=== PATIENT | male | born 1965 | race Caucasian/White ===

== ENCOUNTER 2019-12-12 11:25 | Inpatient (IN) | payer MEDICARE, OTHER ==
[~2019-12-12] VITALS: Ht 162.6 cm; Wt 78.9 kg
[2019-12-12] VITALS (7 sets, daily range): BP systolic 112–143; BP diastolic 62–78
[~2019-12-12 11:25] MED LIST: ABILIFY10 MG ORAL; ACETAMINOPHEN325 M1 ORAL; ANCEF0.5 GM IVINF; DEPAKOTE500 MG ORAL; DIVALPROEX SOD500 MG PO; FLOMAX0.4 MG ORAL; LEVEMIR FL100 UNIT/1 SUBQ; MIRALAX17 G2 ORAL; NOVOLOG100 UNITS1 SUBQ; PROTONIX40 MG ORAL; URECHOLINE25 MG ORAL
--- NOTE | 2019-12-12 11:26 | NUR ---
ED Nurse Note: PT brought in by ambulance from home for C/O ibnfected open wound to right side of face / temporal area. PT reports the wound has been there for over 10 days. unknown reason. pt's right ear appears to be reddened and swollen.
--- NOTE | 2019-12-12 11:28 | Emergency Room Report ---
History of Present Illness General Chief Complaint: General Complaint Source: Patient Present Illness HPI 54-year-old male presents with right posterior ear pain, drainage x2 weeks no aggravating alleviating factors severity is severe, constant patient endorses fever/chills no chest pain or shortness of breath patient presents for evaluation Allergies: Coded Allergies: No Known Allergies (Unverified , 08/03/15) COVID-19 Screening Contact w/high risk pt: No Recent Travel to affected area: No Experienced COVID-19 symptoms?: No COVID-19 Testing performed STEAM FLATTENER: No Patient History Past Medical History: see triage record Reviewed Nursing Documentation: PMH: Agreed; PSxH: Agreed Nursing Documentation-PMH Hx Cardiac Problems: No Hx Hypertension: Yes Hx Diabetes: Yes Hx Cancer: No Hx Gastrointestinal Problems: No History Of Psychiatric Problem: Yes Hx Neurological Problems: Yes Hx Fatigue: Yes Review of Systems All Other Systems: negative except mentioned in HPI Physical Exam Vital Signs Date Time Temp Pulse Resp B/P (MAP) Pulse Ox O2 Delivery O2 Flow Rate FiO2 12/12/19 11:19 99.0 117 19 117/71 (86) 100 Room Air Sp02 EP Interpretation: reviewed, normal General Appearance: alert, moderate distress Head: normocephalic, atraumatic Eyes: bilateral eye PERRL, bilateral eye EOMI ENT: uvula midline, moist mucus membranes, other - Right ear: Swollen externally, red, erythematous, with drainage, right posterior ear skin shows pus and drainage with erythema Neck: supple, thyroid normal, supple/symm/no masses Respiratory: lungs clear, no respiratory distress, no retraction, no accessory muscle use Cardiovascular #1: normal peripheral pulses, no edema, no gallop, no murmur, tachycardia Gastrointestinal: non tender, soft, no guarding, no rebound Musculoskeletal: normal inspection Neurologic: alert, oriented x3 Psychiatric: mood/affect normal Skin: no rash, warm/dry Procedures Critical Care Time Critical Care Time Given the critical condition in which the patient arrived, the patient was immediately assessed by myself and the nurse, and cardiac monitoring initiated due to the potential for rapid decompensation of the patient's clinical condition. During the course of the patient's stay, I spent a considerable amount of time at the bedside performing serial re-evaluations of the patient's hemodynamic and clinical status because of the recognized potential threat to life or limb in this condition. I then had a chance to review not only all of the available current laboratory and radiographic studies obtained today, but I also reviewed old records available to me at the time. Additionally, any ancillary information available including kitchen helper records were reviewed. Sequential vital signs were obtained. Critical Care time of 38 minutes was performed exclusive of billable procedures. Medical Decision Making Diagnostic Impression: Primary Impression: Malignant otitis externa of right ear Qualified Codes: H60.21 - Malignant otitis externa, right ear Additional Impressions: RENU (acute kidney injury) Sepsis Qualified Codes: A41.9 - Sepsis, unspecified organism Cellulitis Qualified Codes: L03.221 - Cellulitis of neck ER Course 54-year-old male presents with malignant otitis externa of the right ear, patient will require IV antibiotic Zosyn Vanco, plan to CT scan Plan for admission patient is in critical condition will need ENT Spoke with [facility] currently at capacity Called [facility] spoke with Dr. Harris Plan for transfer to [facility] Laboratory Tests Test 12/12/19 11:40 White Blood Count 55.2 K/UL (4.8-10.8) *H Red Blood Count 3.71 M/UL (4.70-6.10) L Hemoglobin 11.3 G/DL (14.2-18.0) L Hematocrit 33.8 % (42.0-52.0) L Mean Corpuscular Volume 91 FL (80-99) Mean Corpuscular Hemoglobin 30.4 PG (27.0-31.0) Mean Corpuscular Hemoglobin Concent 33.3 G/DL (32.0-36.0) Red Cell Distribution Width 13.2 % (11.6-14.8) Platelet Count 590 K/UL (150-450) H Mean Platelet Volume 8.4 FL (6.5-10.1) Neutrophils (%) (Auto) % (45.0-75.0) Lymphocytes (%) (Auto) % (20.0-45.0) Monocytes (%) (Auto) % (1.0-10.0) Eosinophils (%) (Auto) % (0.0-3.0) Basophils (%) (Auto) % (0.0-2.0) Differential Total Cells Counted 100 Neutrophils % (Manual) 88 % (45-75) H Lymphocytes % (Manual) 4 % (20-45) L Monocytes % (Manual) 8 % (1-10) Eosinophils % (Manual) 0 % (0-3) Basophils % (Manual) 0 % (0-2) Band Neutrophils 0 % (0-8) Platelet Estimate Adequate Platelet Morphology Normal Hypochromasia 1+ Anisocytosis 1+ Sodium Level 129 MMOL/L (136-145) L Potassium Level 4.6 MMOL/L (3.5-5.1) Chloride Level 93 MMOL/L (98-107) L Carbon Dioxide Level 22 MMOL/L (21-32) Anion Gap 15 mmol/L (5-15) Blood Urea Nitrogen 100 mg/dL (7-18) H Creatinine 2.9 MG/DL (0.55-1.30) H Estimated Glomerular Filtration Rate 23.0 mL/min (>60) Glucose Level 698 MG/DL (74-106) *H Lactic Acid Level 1.90 mmol/L (0.4-2.0) Calcium Level 8.7 MG/DL (8.5-10.1) Phosphorus Level 5.0 MG/DL (2.5-4.9) H Magnesium Level 2.9 MG/DL (1.8-2.4) H Total Bilirubin 0.9 MG/DL (0.2-1.0) Aspartate Amino Transferase (AST) 24 U/L (15-37) Alanine Aminotransferase (ALT) 17 U/L (12-78) Alkaline Phosphatase 216 U/L (46-116) H Total Creatine Kinase 231 U/L (26-308) Creatine Kinase MB 1.3 NG/ML (0.0-3.6) Creatine Kinase MB Relative Index 0.5 Troponin I 0.000 ng/mL (0.000-0.056) Pro-B-Type Natriuretic Peptide 1123 pg/mL (0-125) H Total Protein 7.4 G/DL (6.4-8.2) Albumin 1.3 G/DL (3.4-5.0) L Globulin 6.1 g/dL Albumin/Globulin Ratio 0.2 (1.0-2.7) L Lipase 160 U/L (73-393) EKG Diagnostic Results EKG Time: 11:39 EP Interpretation: Sinus tachycardia rate of 111, QTc 448, no acute ST elevations, normal axis Rhythm Strip Diag. Results Rhythm Strip Time: 11:45 EP Interpretation: yes Rate: 115 Rhythm: other - Sinus tachycardia Chest X-Ray Diagnostic Results Chest X-Ray Diagnostic Results : Chest X-Ray Ordered: Yes # of Views/Limited/Complete: 1 View Indication: Other - preop EP Interpretation: Yes Interpretation: no consolidation, no effusion, no pneumothorax, no acute cardiopulmonary disease Impression: No acute disease Electronically Signed by: Rajinder Malcolm MD CT/MRI/US Diagnostic Results CT/MRI/US Diagnostic Results : Impression Procedure: CT Auditory Canal no Contrast EXAM: CT CT Auditory Canal no Contrast CLINICAL HISTORY: Neck pain and swelling. Otitis externa. TECHNIQUE: Axial images obtained through the temporal bones with subsequent sagittal and coronal reformats. All CT scans at this facility are performed using dose modulation techniques as appropriate to a performed exam including the following: automated exposure control with adjustment of the mA and/or kV according to patient size. RADIATION DOSE: CTDIvol: 9.2 mGy DLP: 230 mGy-cm Dose information generated by the CT scanner is available in PACS. COMPARISON: None FINDINGS: The dominant abnormality is in the right periauricular region. The external auditory canal appears completely obliterated by severe mucosal thickening. Small amount of fluid identified in the middle ear cavity. There is extensive soft tissue edema and swelling noted in the right periauricular region including the postauricular space. There is a small amount of fluid noted in the right mastoid air cells. No cortical erosion or disruption demonstrated. Right scutum remains sharp. Right auditory ossicles shows normal configuration. The right internal auditory canal is also not involved. The left temporal bones appear intact. There is no fracture, bony lesions or erosions. Mastoid air cells are normally pneumatized and aerated. External auditory canal appears patent bilaterally. Middle ear cavities also unremarkable without fluid or soft tissue densities. The scutum are sharp bilaterally. Epitympanum appears normal. Visualized auditory ossicles appear normal in configuration. Inner ear structures including the cochlea, vestibule and semicircular canals are unremarkable. Left IAC appears unremarkable. There is no abnormality of the vestibular aqueduct demonstrated. IMPRESSION: EXTENSIVE SWELLING AND EDEMA REPRESENTING SOFT TISSUE INFECTION INVOLVING THE EXTERNAL AUDITORY CANAL WELL THE PERIAURICULAR SOFT TISSUE AND DEEP SPACES OF THE POSTERIOR UPPER NECK NOTED ON CT NECK. SMALL AMOUNT OF FLUID IN THE RIGHT MIDDLE EAR AND ALSO SMALL AMOUNT OF FLUID IN THE RIGHT MASTOID AIR CELLS. NO BONY DESTRUCTION OF THE TEMPORAL TEMPORAL BONES, AUDITORY OSSICLES OR INNER EAR STRUCTURES DEMONSTRATED. Dictated By: Jomar Blackwell MD Electronically Signed By: Jomar Blackwell MD Signed Date/Time 12/12/19 2328 CC: Rajinder Malcolm MD Last Vital Signs Date Time Temp Pulse Resp B/P (MAP) Pulse Ox O2 Delivery O2 Flow Rate FiO2 12/12/19 11:19 99.0 117 19 117/71 (86) 100 Room Air Disposition: SHORT-TERM HOSP Condition: Critical Rajinder Malcolm MD Dec 12, 2019 11:28
[2019-12-12] MEDS ORDERED: Vancomycin 1.5 GM in NS 275 ML IVPB ONE (11:30)
[2019-12-12] MEDS ORDERED: Piperacillin/Tazobactam 3.375 GM in D5W 110 ML IV ONE (11:30)
--- NOTE | 2019-12-12 11:45 | NUR ---
ED Nurse Note: 20 g IV started in left forearm, blood drawn and sent to lab.
[2019-12-12] MEDS ORDERED: Omnipaque-300 100ml vial INJ PRN (12:00)
[2019-12-12 12:02] LABS: HEMATOCRIT 33.8 % (42.0-52.0); HEMOGLOBIN 11.3 G/DL (14.2-18.0); MEAN CORPUSCULAR VOLUME 91 FL (80-99); PLATELET COUNT 590 K/UL (150-450); RED BLOOD COUNT 3.71 M/UL (4.70-6.10); RED CELL DISTRIBUTION WIDTH 13.2 % (11.6-14.8)
[2019-12-12 12:23] LABS: WHITE BLOOD COUNT 55.2 K/UL (4.8-10.8)
--- NOTE | 2019-12-12 12:31 | NUR ---
ED Nurse Note: Patient resting in bed, on the campus monitor, no s/s of acute distress. Patient tolerating antibiotics well, patient still unable to provide urine, refusing straight cath.
[2019-12-12 12:35] LABS: ALANINE AMINOTRANSFERASE 17 U/L (12-78); ALBUMIN 1.3 G/DL (3.4-5.0); ALBUMIN/GLOBULIN RATIO 0.2 (1.0-2.7); ALKALINE PHOSPHATASE 216 U/L (46-116); ANION GAP 15 mmol/L (5-15); ASPARTATE AMINO TRANSFERASE 24 U/L (15-37); BILIRUBIN,TOTAL 0.9 MG/DL (0.2-1.0); BLOOD UREA NITROGEN 100 mg/dL (7-18); CALCIUM 8.7 MG/DL (8.5-10.1); CARBON DIOXIDE 22 MMOL/L (21-32); CHLORIDE 93 MMOL/L (98-107); CKMB 1.3 NG/ML (0.0-3.6); CREATINE KINASE 231 U/L (26-308); CREATININE 2.9 MG/DL (0.55-1.30); POTASSIUM 4.6 MMOL/L (3.5-5.1); SODIUM 129 MMOL/L (136-145)
--- NOTE | 2019-12-12 12:47 | Diagnostic Imaging Report ---
Procedure: XRAY Chest 1v Reason for study: Cough Comparison films: 08/03/2015. FINDINGS: A single one view chest is obtained. Vascularity is normal. The lung arreola are clear bilaterally. Cardiac and mediastinal silhouette are within normal limits. CP angles are sharp. The bony thorax appear unremarkable. IMPRESSION: NO ACUTE CARDIOPULMONARY DISEASE.
--- NOTE | 2019-12-12 13:05 | NUR ---
ED Nurse Note: Patient taken to CT
--- NOTE | 2019-12-12 13:30 | NUR ---
ED Nurse Note: Patient returned from CT
--- NOTE | 2019-12-12 13:41 | Diagnostic Imaging Report ---
EXAM: CT CT Head no Contrast INDICATION: Headache. Ear pain and neck swelling. TECHNIQUE: Axial images of the brain were obtained with subsequent sagittal and coronal reformats. All CT scans at this facility are performed using dose modulation techniques as appropriate to a performed exam including the following: automated exposure control with adjustment of the mA and/or kV according to patient size. COMPARISON STUDY: None. RADIATION DOSE: CTDIvol: 9.2 mGy DLP: 230 mGy-cm Dose information generated by the CT scanner is available in PACS. FINDINGS: There is mild age-related volume loss. There is no acute large territory cortical infarct, hemorrhage, mass effect or shift. Ventricles and cisterns as well as brainstem and posterior fossa appear unremarkable. The sellar region is normal. Sinuses, mastoid air cells and bony calvarium appear intact. There is marked soft tissue swelling noted in the right postauricular region extending to the deep soft tissue of the right upper neck and posterior skull base region. There is also severe soft tissue thickening in the external auditory canal Clinically patient is said to have severe otitis externa and CT findings likely reflect severe soft tissue infection with possible phlegmon abscess formation. IMPRESSION: No acute intracranial abnormality. Severe soft tissue swelling and inflammation noted in the right external auditory canal, right postauricular region with extension and involvement of the deep soft tissue of the upper neck and skull base region. Given patient's history, this likely represent focal soft tissue infection with phlegmon/abscess formation.
--- NOTE | 2019-12-12 13:47 | Diagnostic Imaging Report ---
EXAM: CT CT Neck no Contrast CLINICAL HISTORY: Neck swelling and pain. Severe otitis externa. TECHNIQUE: Axial images obtained through the neck without administration of contrast. Coronal and sagittal reformatted images were also obtained. All CT scans at this facility are performed using dose modulation techniques as appropriate to a performed exam including the following: automated exposure control with adjustment of the mA and/or kV according to patient size. RADIATION DOSE: CTDIvol: 9.2 mGy DLP: 230 mGy-cm Dose information generated by the CT scanner is available in PACS. COMPARISON: None FINDINGS: There is extensive soft tissue inflammation and edema affecting mainly the right aspect of the face and neck. Soft tissue edema and induration noted in the right cheek and the right periauricular region. Soft tissue thickening noted with obliteration of the right external auditory canal compared to the left. Inflamed soft tissue noted involving the right-sided deep upper neck musculature from the skull base down to the lower cervical spine. There is also masslike enlargement of the right sternocleidomastoid. Differentiation of soft tissues without contrast is difficult. Confluent soft tissue in the posterior triangle and anterior cervical chain may reflect underlying reactive adenopathy. There is overlying skin thickening and subcutaneous edema. Some similar inflammatory changes identified on the contralateral left side to a much lesser extent. Some mildly prominent lymph nodes in the right subclavicular region also noted. IMPRESSION: Findings of extensive soft tissue inflammation and edema affecting the right face and neck spanning the skull base down to the lower neck. Given the clinical history of severe otitis externa, this may represent severe soft tissue infection with possible phlegmon/abscess formation particularly in the deep upper neck musculature which is asymmetrically thickened compared to the contralateral left. There is likely confluent adenopathy in the posterior triangle and anterior cervical chain.
--- NOTE | 2019-12-12 13:59 | Diagnostic Imaging Report ---
EXAM: CT CT Auditory Canal no Contrast CLINICAL HISTORY: Neck pain and swelling. Otitis externa. TECHNIQUE: Axial images obtained through the temporal bones with subsequent sagittal and coronal reformats. All CT scans at this facility are performed using dose modulation techniques as appropriate to a performed exam including the following: automated exposure control with adjustment of the mA and/or kV according to patient size. RADIATION DOSE: CTDIvol: 9.2 mGy DLP: 230 mGy-cm Dose information generated by the CT scanner is available in PACS. COMPARISON: None FINDINGS: The dominant abnormality is in the right periauricular region. The external auditory canal appears completely obliterated by severe mucosal thickening. Small amount of fluid identified in the middle ear cavity. There is extensive soft tissue edema and swelling noted in the right periauricular region including the postauricular space. There is a small amount of fluid noted in the right mastoid air cells. No cortical erosion or disruption demonstrated. Right scutum remains sharp. Right auditory ossicles shows normal configuration. The right internal auditory canal is also not involved. The left temporal bones appear intact. There is no fracture, bony lesions or erosions. Mastoid air cells are normally pneumatized and aerated. External auditory canal appears patent bilaterally. Middle ear cavities also unremarkable without fluid or soft tissue densities. The scutum are sharp bilaterally. Epitympanum appears normal. Visualized auditory ossicles appear normal in configuration. Inner ear structures including the cochlea, vestibule and semicircular canals are unremarkable. Left IAC appears unremarkable. There is no abnormality of the vestibular aqueduct demonstrated. IMPRESSION: EXTENSIVE SWELLING AND EDEMA REPRESENTING SOFT TISSUE INFECTION INVOLVING THE EXTERNAL AUDITORY CANAL WELL THE PERIAURICULAR SOFT TISSUE AND DEEP SPACES OF THE POSTERIOR UPPER NECK NOTED ON CT NECK. SMALL AMOUNT OF FLUID IN THE RIGHT MIDDLE EAR AND ALSO SMALL AMOUNT OF FLUID IN THE RIGHT MASTOID AIR CELLS. NO BONY DESTRUCTION OF THE TEMPORAL TEMPORAL BONES, AUDITORY OSSICLES OR INNER EAR STRUCTURES DEMONSTRATED.
[2019-12-12] MEDS ORDERED: Insulin Human Regular 100units/ml 3ml IV ONE ×3 (15:30→18:45)
--- NOTE | 2019-12-12 16:39 | NUR ---
ED Nurse Note: POC blood sugar check is 505 by fingerstick after administering [address] Foreman aware, NS infusing.
[2019-12-12 17:04] LABS: APPEARANCE,URINE CLOUDY; BILIRUBIN, URINE NEGATIVE (NEGATIVE); GLUCOSE, URINE (UA) 4+ (NEGATIVE); KETONES,URINE 2+ (NEGATIVE); LEUKOCYTE ESTERASE ,URINE NEGATIVE (NEGATIVE); NITRITE,URINE NEGATIVE (NEGATIVE); PH,URINE 5 (4.5-8.0); PROTEIN,URINE 3+ (NEGATIVE); UROBILINOGEN,URINE NORMAL MG/DL (0.0-1.0)
[2019-12-12 17:15] LABS: COLOR,URINE YELLOW
--- NOTE | 2019-12-12 17:35 | NUR ---
ED Nurse Note: Repeat BMP sent to lab
--- NOTE | 2019-12-12 18:10 | NUR ---
ED Nurse Note: Patient's Mother - Zuleika Bolton - . Requesting to be called once patient is going to be transfered.
[2019-12-12 18:26] LABS: ANION GAP 14 mmol/L (5-15); BLOOD UREA NITROGEN 88 mg/dL (7-18); CALCIUM 7.5 MG/DL (8.5-10.1); CARBON DIOXIDE 21 MMOL/L (21-32); CHLORIDE 100 MMOL/L (98-107); CREATININE 2.7 MG/DL (0.55-1.30); POTASSIUM 3.9 MMOL/L (3.5-5.1); SODIUM 134 MMOL/L (136-145)
--- NOTE | 2019-12-12 19:04 | NUR ---
ED Nurse Note: Called and updated patient's mother Zuleika regarding room in SDU
--- NOTE | 2019-12-12 19:05 | NUR ---
ED Nurse Note: pt resting in bed, VSS no ss of distress noted. Will continue to monitor.
[2019-12-12] MEDS ORDERED: Nitroglycerin Subl 0.4mg tab SL PRN (19:30)
[2019-12-12] MEDS ORDERED: Miralax 17gm pkt ORAL PRN (19:30)
[2019-12-12] MEDS ORDERED: Albuterol/Ipratropium 3ml neb HHN PRN (19:30)
--- NOTE | 2019-12-12 20:50 | NUR ---
ED Nurse Note: Report given to BERNARDINO Mon on SDU unit. Pending pt transfer d/t no room available. Pharmacy notified for Novolog Flexpen, awaiting device. ERMD notified BS recheck at 2049 is BS [phone].
[2019-12-12] MEDS ORDERED: Tamsulosin 0.4mg cap ORAL SCH (21:00)
[2019-12-12] MEDS ORDERED: Cefepime HCl 2 GM in D5W 110 ML IV SCH (21:00)
[2019-12-12] MEDS: NovoLOG Insulin Flexpen SUBQ SCH (21:24)
--- NOTE | 2019-12-12 21:55 | NUR ---
ER DISCHARGE NOTE: Patient is cleared to be discharged to SDU unit per ERMD, pt is aox4, 97% on room air, with stable vital signs. pt was given dc instructions, pt was able to verbalize understanding. pt is able to ambulate with steady gait. pt took all belongings. report given to BERNARDINO Mon on SDU unit. Pt transferred with 2 RNs on monitor.
--- NOTE | 2019-12-12 22:00 | NUR ---
NURSE NOTES: Report received from BERNARDINO Mon. Patient AO x 4, afebrile and has no respiratory distress noted. Patient able to state the name and responded to nurses. on [address] via 5 lead citizenship teacher. RA Saturating at 97-98%. With left FA 20G Iv line intact, patent and flushed. Skin assessment done and noted observed skin changes. Gown and linens were changed. Needs were attended. HOB elevated. Bed rails are up and wheels are locked. Continue to monitor the patient.
[2019-12-12] MEDS: Heparin 5000 units/ml inj SUBQ SCH (22:50)
[2019-12-13] VITALS: BP 132/72
[2019-12-13] MEDS ORDERED: Vancomycin 1 GM in D5W 275 ML IV SCH (00:30)
--- NOTE | 2019-12-13 02:30 | NUR ---
NURSE NOTES: Patient's needs were attended. Pt went back to sleep. Continue to monitor the patient.
[2019-12-13 04:00] VITALS: BP 127/71
[2019-12-13 05:09] LABS: HEMATOCRIT 31.2 % (42.0-52.0); HEMOGLOBIN 10.3 G/DL (14.2-18.0); MEAN CORPUSCULAR VOLUME 91 FL (80-99); PLATELET COUNT 572 K/UL (150-450); RED BLOOD COUNT 3.43 M/UL (4.70-6.10); RED CELL DISTRIBUTION WIDTH 13.2 % (11.6-14.8)
[2019-12-13 05:34] LABS: ALANINE AMINOTRANSFERASE 15 U/L (12-78); ALBUMIN 1.1 G/DL (3.4-5.0); ALBUMIN/GLOBULIN RATIO 0.2 (1.0-2.7); ALKALINE PHOSPHATASE 205 U/L (46-116); ANION GAP 13 mmol/L (5-15); ASPARTATE AMINO TRANSFERASE 22 U/L (15-37); BILIRUBIN,TOTAL 0.5 MG/DL (0.2-1.0); BLOOD UREA NITROGEN 92 mg/dL (7-18); CARBON DIOXIDE 22 MMOL/L (21-32); CHLORIDE 104 MMOL/L (98-107); CREATININE 2.6 MG/DL (0.55-1.30); POTASSIUM 4.2 MMOL/L (3.5-5.1); SODIUM 139 MMOL/L (136-145)
[2019-12-13 05:35] LABS: WHITE BLOOD COUNT 57.9 K/UL (4.8-10.8)
--- NOTE | 2019-12-13 05:40 | NUR ---
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 awaiting for response
[2019-12-13] MEDS: NovoLOG Insulin Flexpen SUBQ SCH ×4 (06:05→22:23)
--- NOTE | 2019-12-13 07:19 | NUR ---
HAND-OFF: Report given to Marciano Bray RN.
--- NOTE | 2019-12-13 07:30 | NUR ---
NURSE NOTES: Received report from BERNARDINO Lozano. Patient is resting in bed, in stable condition. No s/sx of SOB, breathing is even and unlabored, on room air. Patient denies any presence of pain or discomfort at this time. Bed is in lowest position, brakes engaged. Call light is kept within easy reach. Will continue to monitor patient.
[2019-12-13 08:00] VITALS: BP 102/72
[2019-12-13] MEDS: metroNIDAZOLE 500mg tab ORAL SCH ×3 (08:53→22:18)
[2019-12-13] MEDS: Heparin 5000 units/ml inj SUBQ SCH ×2 (08:55→22:19)
[2019-12-13] MEDS ORDERED: ARIPiprazole 10mg tab ORAL SCH (09:00)
[2019-12-13] MEDS ORDERED: Depakote 500mg tab ORAL SCH (09:00)
--- NOTE | 2019-12-13 11:00 | NUR ---
NURSE NOTES: Per Dr. Borja use Dr. Parr for ENT consult regarding yellowish discharge on right posterior ear.
--- NOTE | 2019-12-13 11:42 | Consultation ---
History of Present Illness General Date patient seen: Dec 13, 2019 Chief Complaint: General Complaint Present Illness HPI 54-year-old male with Hx of DM, psychosis, previous history of hyperosmolar coma at [facility] [place] [facility] presented to ER with right posterior ear pain and drainage x2 weeks with fever/chills. Pt had a CT of neck and inner ear which showed extenvise soft tissue inflammation around right ear canal without destruction of akila structures. Patient looks comfortable now and the pain seems to be controlled. Allergies: Coded Allergies: No Known Allergies (Unverified , 08/03/15) Medication History Scheduled Aripiprazole* (Abilify*), 10 MG ORAL DAILY Bethanechol Chl (Bethanechol Chloride), 25 MG ORAL THREE TIMES A DAY Cefazolin Sod (Cefazolin Sodium), 2 GM IVINF EVERY 8 HOURS Divalproex Sodium (Depakote), 500 MG ORAL EVERY 12 HOURS Insulin Aspart (Novolog Flexpen), 0 UNITS SUBQ BEFORE MEALS AND HS Insulin Detemir (Levemir Flexpen), 12 UNITS SUBQ Q24H Pantoprazole* (Protonix*), 40 MG ORAL DAILY Tamsulosin HCl (Flomax), 0.4 MG ORAL BEDTIME Scheduled PRN Acetaminophen* (Acetaminophen 325MG Tablet*), 650 MG ORAL Q4H PRN for fever Polyethylene Glycol 3350* (Miralax*), 17 GM ORAL HSPRN PRN for Constipation Miscellaneous Medications Divalproex Sodium (Divalproex Sodium), 500 MG PO, (Reported) Patient History Healthcare decision maker Resuscitation status Advanced Directive on File Past Medical/Surgical History Past Medical/Surgical History: (1) Diabetes mellitus (2) Psychosis Review of Systems All Other Systems: negative except mentioned in HPI Physical Exam General Appearance: WD/WN, no apparent distress Lines, tubes and drains: peripheral HEENT: normocephalic, atraumatic Neck: non-tender, normal alignment Respiratory/Chest: chest wall non-tender, lungs clear Breasts: no masses Cardiovascular/Chest: normal peripheral pulses Abdomen: normal bowel sounds, non tender Genitourinary/Rectal: normal genital exam Extremities: normal range of motion Skin Exam: normal pigmentation 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 Last 24 Hour Vital Signs Date Time Temp Pulse Resp B/P (MAP) Pulse Ox O2 Delivery O2 Flow Rate FiO2 12/13/19 08:00 98.1 105 20 102/72 (82) 94 12/13/19 08:00 Room Air 12/13/19 07:48 111 12/13/19 04:00 Room Air 12/13/19 04:00 99.3 88 20 127/71 (89) 12/13/19 03:48 112 12/13/19 00:00 98.2 24 132/72 (92) 12/13/19 00:00 Room Air 12/12/19 23:41 107 12/12/19 22:15 Room Air 12/12/19 21:55 99.1 108 28 137/62 100 Room Air 12/12/19 20:45 99.1 108 28 143/68 100 Room Air 12/12/19 19:30 99.1 108 28 112/62 100 Room Air 12/12/19 17:54 99.1 105 18 120/76 100 Room Air 12/12/19 17:00 99.1 108 18 126/78 100 Room Air 12/12/19 15:05 99.1 105 18 121/73 100 Room Air 12/12/19 13:25 99.2 105 18 119/74 100 Room Air Intake and Output 12/12/19 12/13/19 19:00 07:00 Intake Total 3685 ml 3440 ml Balance 3685 ml 3440 ml Intake Oral 220 ml IV Total 3685 ml 3220 ml # Voids 2 Laboratory Tests Test 12/12/19 11:40 12/12/19 16:20 12/12/19 17:32 12/12/19 23:05 White Blood Count 55.2 K/UL (4.8-10.8) *H Red Blood Count 3.71 M/UL (4.70-6.10) L Hemoglobin 11.3 G/DL (14.2-18.0) L Hematocrit 33.8 % (42.0-52.0) L Mean Corpuscular Volume 91 FL (80-99) Mean Corpuscular Hemoglobin 30.4 PG (27.0-31.0) Mean Corpuscular Hemoglobin Concent 33.3 G/DL (32.0-36.0) Red Cell Distribution Width 13.2 % (11.6-14.8) Platelet Count 590 K/UL (150-450) H Mean Platelet Volume 8.4 FL (6.5-10.1) Neutrophils (%) (Auto) % (45.0-75.0) Lymphocytes (%) (Auto) % (20.0-45.0) Monocytes (%) (Auto) % (1.0-10.0) Eosinophils (%) (Auto) % (0.0-3.0) Basophils (%) (Auto) % (0.0-2.0) Differential Total Cells Counted 100 Neutrophils % (Manual) 88 % (45-75) H Lymphocytes % (Manual) 4 % (20-45) L Monocytes % (Manual) 8 % (1-10) Eosinophils % (Manual) 0 % (0-3) Basophils % (Manual) 0 % (0-2) Band Neutrophils 0 % (0-8) Platelet Estimate Adequate Platelet Morphology Normal Hypochromasia 1+ Anisocytosis 1+ Sodium Level 129 MMOL/L (136-145) L 134 MMOL/L (136-145) L Potassium Level 4.6 MMOL/L (3.5-5.1) 3.9 MMOL/L (3.5-5.1) Chloride Level 93 MMOL/L (98-107) L 100 MMOL/L (98-107) Carbon Dioxide Level 22 MMOL/L (21-32) 21 MMOL/L (21-32) Anion Gap 15 mmol/L (5-15) 14 mmol/L (5-15) Blood Urea Nitrogen 100 mg/dL (7-18) H 88 mg/dL (7-18) H Creatinine 2.9 MG/DL (0.55-1.30) H 2.7 MG/DL (0.55-1.30) H Estimat Glomerular Filtration Rate 23.0 mL/min (>60) 24.9 mL/min (>60) Glucose Level 698 MG/DL (74-106) *H 530 MG/DL (74-106) #*H Lactic Acid Level 1.90 mmol/L (0.4-2.0) Calcium Level 8.7 MG/DL (8.5-10.1) 7.5 MG/DL (8.5-10.1) L Phosphorus Level 5.0 MG/DL (2.5-4.9) H Magnesium Level 2.9 MG/DL (1.8-2.4) H Total Bilirubin 0.9 MG/DL (0.2-1.0) Aspartate Amino Transf (AST/SGOT) 24 U/L (15-37) Alanine Aminotransferase (ALT/SGPT) 17 U/L (12-78) Alkaline Phosphatase 216 U/L (46-116) H Total Creatine Kinase 231 U/L (26-308) Creatine Kinase MB 1.3 NG/ML (0.0-3.6) Creatine Kinase MB Relative Index 0.5 Troponin I 0.000 ng/mL (0.000-0.056) Pro-B-Type Natriuretic Peptide 1123 pg/mL (0-125) H Total Protein 7.4 G/DL (6.4-8.2) Albumin 1.3 G/DL (3.4-5.0) L Globulin 6.1 g/dL Albumin/Globulin Ratio 0.2 (1.0-2.7) L Lipase 160 U/L (73-393) Urine Color Yellow Urine Appearance Cloudy Urine pH 5 (4.5-8.0) Urine Specific [place] 1.015 (1.005-1.035) Urine Protein 3+ (NEGATIVE) H Urine Glucose (UA) 4+ (NEGATIVE) H Urine Ketones 2+ (NEGATIVE) H Urine Blood 5+ (NEGATIVE) H Urine Nitrite Negative (NEGATIVE) Urine Bilirubin Negative (NEGATIVE) Urine Urobilinogen Normal MG/DL (0.0-1.0) Urine Leukocyte Esterase Negative (NEGATIVE) Urine RBC 15-20 /HPF (0 - 0) H Urine WBC 10-15 /HPF (0 - 0) H Urine Squamous Epithelial Cells Occasional /LPF Urine Amorphous Sediment Many /LPF (NONE) H Urine Bacteria Few /HPF (NONE) POC Whole Blood Glucose 375 MG/DL (74-106) H Test 12/13/19 03:45 12/13/19 05:54 White Blood Count 57.9 K/UL (4.8-10.8) *H Red Blood Count 3.43 M/UL (4.70-6.10) L Hemoglobin 10.3 G/DL (14.2-18.0) L Hematocrit 31.2 % (42.0-52.0) L Mean Corpuscular Volume 91 FL (80-99) Mean Corpuscular Hemoglobin 30.2 PG (27.0-31.0) Mean Corpuscular Hemoglobin Concent 33.2 G/DL (32.0-36.0) Red Cell Distribution Width 13.2 % (11.6-14.8) Platelet Count 572 K/UL (150-450) H Mean Platelet Volume 8.5 FL (6.5-10.1) Neutrophils (%) (Auto) % (45.0-75.0) Lymphocytes (%) (Auto) % (20.0-45.0) Monocytes (%) (Auto) % (1.0-10.0) Eosinophils (%) (Auto) % (0.0-3.0) Basophils (%) (Auto) % (0.0-2.0) Differential Total Cells Counted 100 Neutrophils % (Manual) 85 % (45-75) H Lymphocytes % (Manual) 4 % (20-45) L Monocytes % (Manual) 8 % (1-10) Eosinophils % (Manual) 0 % (0-3) Basophils % (Manual) 0 % (0-2) Band Neutrophils 3 % (0-8) Nucleated Red Blood Cells 1 /100 WBC Platelet Estimate Increased H Platelet Morphology Normal Sodium Level 139 MMOL/L (136-145) Potassium Level 4.2 MMOL/L (3.5-5.1) Chloride Level 104 MMOL/L (98-107) Carbon Dioxide Level 22 MMOL/L (21-32) Anion Gap 13 mmol/L (5-15) Blood Urea Nitrogen 92 mg/dL (7-18) H Creatinine 2.6 MG/DL (0.55-1.30) H Estimat Glomerular Filtration Rate 26.1 mL/min (>60) Glucose Level 346 MG/DL (74-106) #H Calcium Level 8.0 MG/DL (8.5-10.1) L Total Bilirubin 0.5 MG/DL (0.2-1.0) Aspartate Amino Transf (AST/SGOT) 22 U/L (15-37) Alanine Aminotransferase (ALT/SGPT) 15 U/L (12-78) Alkaline Phosphatase 205 U/L (46-116) H Total Protein 6.7 G/DL (6.4-8.2) Albumin 1.1 G/DL (3.4-5.0) L Globulin 5.6 g/dL Albumin/Globulin Ratio 0.2 (1.0-2.7) L Random Vancomycin Level 15.9 ug/mL Valproic Acid (Depakene) Level 4 MCG/ML (50-100) L POC Whole Blood Glucose 311 MG/DL (74-106) H Microbiology Date/Time Source Procedure Growth Status 12/12/19 11:40 Blood Blood Culture - Preliminary Resulted 12/12/19 16:20 Urine,Clean Catch Urine Culture - Preliminary NO GROWTH Resulted Height (Feet): 5 Height (Inches): 4.00 Weight (Pounds): 174 Medications Current Medications Medications (Trade) Dose Ordered Sig/Rianna Route PRN Reason Start Time Stop Time Status Last Admin Dose Admin Acetaminophen (Tylenol) 650 mg Q4H PRN ORAL fever 12/12/19 19:30 01/11/20 19:29 Albuterol/ Ipratropium (Albuterol/ Ipratropium) 3 ml Q4H PRN HHN Shortness of Breath 12/12/19 19:30 12/17/19 19:29 Aripiprazole (Abilify) 10 mg DAILY ORAL 12/13/19 09:00 01/27/20 08:59 12/13/19 08:53 Cefepime HCl 2 gm/ Dextrose 110 ml @ 220 mls/hr Q24H IV 12/12/19 21:00 12/19/19 20:59 12/12/19 22:48 Dextrose (Dextrose 50%) 25 ml Q30M PRN IV Hypoglycemia 12/12/19 19:30 03/11/20 19:29 Dextrose (Dextrose 50%) 50 ml Q30M PRN IV Hypoglycemia 12/12/19 19:30 03/11/20 19:29 Divalproex Sodium (Depakote) 500 mg DAILY ORAL 12/13/19 09:00 01/12/20 08:59 12/13/19 09:04 Heparin Sodium (Porcine) (Heparin 5000 units/ml) 5,000 units EVERY 12 HOURS SUBQ 12/12/19 21:00 01/26/20 20:59 12/13/19 08:55 Insulin Aspart (NovoLOG) BEFORE MEALS AND HS SUBQ 12/12/19 21:00 03/11/20 20:59 12/13/19 06:05 Iohexol (OMNIPAQUE-300 100ml) 100 ml NOW PRN INJ Radiology Procedure 12/12/19 12:00 12/14/19 11:58 Metronidazole (Flagyl) 500 mg Q8HR ORAL 12/13/19 08:45 12/20/19 08:44 12/13/19 08:53 Nitroglycerin (Ntg) 0.4 mg Q5M PRN SL Prn Chest Pain 12/12/19 19:30 01/11/20 19:29 Ondansetron HCl (Zofran) 4 mg Q6H PRN IVP Nausea & Vomiting 12/12/19 19:30 01/11/20 19:29 Polyethylene Glycol (Miralax) 17 gm DAILYPRN PRN ORAL Constipation 12/12/19 19:30 01/11/20 19:29 Tamsulosin HCl (Flomax) 0.4 mg BEDTIME ORAL 12/12/19 21:00 01/11/20 20:59 12/12/19 22:48 Temazepam (Restoril) 15 mg HSPRN PRN ORAL Insomnia 12/12/19 19:30 12/19/19 19:29 Vancomycin HCl (Vanco pharmacy to dose) 1 ea DAILY PRN MISC Per rx protocol 12/12/19 19:45 01/11/20 19:44 Vancomycin/Sodium Chloride 275 ml @ 137.5 mls/ hr ONCE IVPB 12/13/19 12:00 12/13/19 14:00 Assessment/Plan Problem List: (1) Sepsis ICD Codes: A41.9 - Sepsis, unspecified organism SNOMED: 54766197 Qualifiers: Qualified Codes: A41.9 - Sepsis, unspecified organism (2) Cellulitis ICD Codes: L03.90 - Cellulitis, unspecified SNOMED: 625151472 Qualifiers: Qualified Codes: L03.221 - Cellulitis of neck (3) RENU (acute kidney injury) ICD Codes: N17.9 - Acute kidney failure, unspecified SNOMED: 50786177, 7477061 (4) Diabetes mellitus ICD Codes: E11.9 - Type 2 diabetes mellitus without complications SNOMED: 56123022 (5) Psychosis ICD Codes: F29 - Unspecified psychosis not due to a substance or known physiological condition SNOMED: 49165847 Assessment/Plan: ENT evaluation IV abx check cultures from the ear sliding scale renal evaluation pain management dvt prophylaxis. Liliana Borja MD Dec 13, 2019 11:42
[2019-12-13] MEDS ORDERED: Amikacin Rx to dose MISC PRN (11:45)
[2019-12-13 12:00] VITALS: BP 127/65
[2019-12-13] MEDS ORDERED: Vancomycin 1.5gm/NS Premix q24h IVPB SCH (12:00)
--- NOTE | 2019-12-13 12:11 | NUR ---
CASE MANAGEMENT: INITIAL REVIEW 54 YO M GIORGIO FROM HOME CC: INFECTION NOTED TO THE RIGHT POSTERIOR PART OF THE NECK PMHx: DM, psychosis, previous history of hyperosmolar coma SI;NECROTIZING INFECTION T 98.1 HR 105 RR 20 B/P 102/72 SATS 94% ON RA LABS: WBC 55.2 PLT 590 BUN 88 CR 2.7 GLU 530 CA 7.5 IS: VANCO IV X1 ZOSYN IV X1 NS BOLUS X1 PATIENT ADMITTED TO SDU 12/12/2019 @ 1155 DCP: HOME Assessment/Plan: ENT evaluation IV abx check cultures from the ear GLYCEMIC CONTROL AND MONITORING renal evaluation
[2019-12-13 12:48] LABS: CREATINE KINASE 144 U/L (26-308)
[2019-12-13] MEDS ORDERED: Amikacin 1,000 MG in NS 110 ML IV SCH (13:00)
--- NOTE | 2019-12-13 13:39 | NUR ---
NURSE NOTES: Left message for Dr. Parr for new ENT consult regarding yellowish discharge on right posterior ear. Noted.
--- NOTE | 2019-12-13 13:50 | NUR ---
NURSE NOTES: COVID-19 swab sample taken to lab for analysis per orders of Dr. Carter.
--- NOTE | 2019-12-13 14:00 | NUR ---
NURSE NOTES: Dr. Parr police department secretary called nurse station and spoke with this nurse, informed this nurse Dr. Parr does not do inpatient visits. Noted. Dr. Borja notified.
--- NOTE | 2019-12-13 14:01 | Consultation ---
Consult Note Consult Note I am asked to evaluate the patient at the request of Dr. Benjamin for renal failure Patient known to me from his previous admission here at [facility] 3 years ago 54-year-old male presents with right posterior ear pain, drainage x2 weeks no aggravating alleviating factors severity is severe, constant patient endorses fever/chills no chest pain or shortness of breath patient presents for evaluation No Known Allergies (Unverified , 08/03/15) COVID-19 Screening Contact w/high risk pt: No Recent Travel to affected area: No Experienced COVID-19 symptoms?: No COVID-19 Testing performed INSPECTOR DIALS: No Hx Hypertension: Yes Hx Diabetes: Yes History Of Psychiatric Problem: Yes Hx Neurological Problems: Yes Hx Fatigue: Yes Patient examined: PHYSICAL EXAMINATION: VITAL SIGNS: Admission temperature 99.2, pulse of 105, respirations 18, and blood pressure 119/74. GENERAL: The patient is awake, responsive, no acute distress. HEENT: Pupils are equally reactive to light. Extraocular movements are intact. Right posterior ocular area has discharge, inflamed, tender to touch, erythema. NECK: Supple. No JVD. LUNGS: Good air entry. No wheezes or rales. Decreased air entry in the bases. HEART: S1, S2. Distant heart sounds. No murmur or gallops. ABDOMEN: Soft, nondistended, nontender. Morbidly obese. EXTREMITIES: No cyanosis, clubbing, or edema NEUROLOGIC: Cranial nerves II through XII grossly normal. Motor is 5/5 in all extremities. Gait was not assessed due to patient's status. RECTAL/GENITOURINARY: Refused and deferred. PSYCHIATRIC: Mood and affect are intact. LABORATORY DATA: Admission WBC of 55.2, hemoglobin 11, hematocrit 33, platelet is 590. Sodium 139, potassium 4.2, chloride 104, bicarb 22, BUN 92, creatinine 2.6, GFR is 26, glucose is 346, calcium is 8.0, uric acid is 12.3. Alkaline phosphatase is 205, albumin is 1.1. Troponin 0.00, proBNP of 1123. Valproic acid is 4. Urinalysis, +3 protein, +4 glucose, +2 ketone, negative nitrite, 10-15 wbc's, negative leukocytes. Chest x-ray was noted to be no acute cardiopulmonary disease. CT scan of the auditory canal noted the patient has extensive swelling and edema representing soft tissue infection involving the exterior auditory canal as well as periocular soft tissue and deep space of the posterior upper neck small amount of fluid in the right middle ear and also a small amount of fluid in the right mastoid air cell. No bony destruction of temporal bones, auditory, osseous, or inner ear structure, demonstrated. uvula midline, moist mucus membranes, other - Right ear: Swollen externally, red , erythematous, with drainage, right posterior ear skin shows pus and drainage with erythema . 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 Harsh Ma MD Dec 13, 2019 14:01
[2019-12-13] MEDS ORDERED: D5 1/2NS 1,000 ML IV SCH (14:12)
--- NOTE | 2019-12-13 14:42 | History & Physical ---
History and Physical History & Physicial Holger Benjamin MD Dec 13, 2019 14:42
[2019-12-13 16:00] VITALS: BP 124/75
--- NOTE | 2019-12-13 16:00 | NUR ---
NURSE NOTES: Dr. Byrnes notified of ENT consult for patient.
--- NOTE | 2019-12-13 16:46 | NUR ---
NURSE NOTES: Contacted and informed Dr. Borja unable to obtain ordered urine specimen at this time, bladder scan revealed zero ml. Dr. Borja acknowledged and no new orders given at this time. Also informed MD patient desaturated to SpO2 81% on room air, placed patient on 2LNC SpO2 elevated to 95%. Dr. Borja acknowledged and gave no new orders at this time. Will continue to monitor patient.
--- NOTE | 2019-12-13 17:27 | NUR ---
TRANSFER TO FLOOR: Patient transferred to Telemetry, per Dr. Borja. Report given to BERNARDINO Randolph and Brittany, RN. Belongings and medications given to BERNARDINO Randolph and Brittany, RN. Family informed of transfer.
--- NOTE | 2019-12-13 17:44 | NUR ---
NURSE NOTES: Received report from BERNARDINO Bradley. Patient AAO x3, no signs of pain or distress. Breathing regular and unlabored on 2L NC. L FA 20 g IV infusing vancomycin. No redness or infiltration at IV site. Bed low and locked, call light in reach, side rails raised x3, bed alarm on. Will continue to monitor.
[2019-12-13] MEDS ORDERED: Nitroglycerin Subl 0.4mg tab SL PRN (17:45)
[2019-12-13] MEDS: Docusate 100mg cap ORAL SCH (17:46)
[2019-12-13] MEDS ORDERED: Docusate 100mg cap ORAL SCH (18:00)
[2019-12-13] MEDS ORDERED: Miralax 17gm pkt ORAL PRN (18:00)
[2019-12-13] MEDS ORDERED: Albuterol/Ipratropium 3ml neb HHN PRN (18:00)
--- NOTE | 2019-12-13 18:01 | NUR ---
NURSE NOTES:WOUND CARE NOTES:Pt presented on admission with large mass which encircles,R side of neck, R ear and posterior aspect of neck (L)7.9cm x (W)18.5cm . R earlobe is swollen and erythematous. An area distal to R ear and second area posterior to R ear both oozing large amt of Haemopurulent exudate. Pt screams in pain when affected area minimally palpated. Pt reluctantly responds to nurse queries about etiology and and onset of neck swelling and could not confirm being bitten by insects or any trauma. Area cleansed with Betadine and covered with Pressure drsg. Dr. Benjamin visited and informed of findings. Tx.plan:Apply 4x4 gauze with ABD Pads and secure with paper tape. Change prn until pt further evaluated by Surgeon.
--- NOTE | 2019-12-13 19:06 | Consultation ---
History of Present Illness General Date patient seen: Dec 13, 2019 Reason for Hospitalization: General Complaint Present Illness HPI This is a very pleasant 54-year-old male who presented to [facility] for evaluation of right-sided facial ear occipital abscess and infection. Patient states ongoing for 2 weeks and progressively worsening. Did not initially seek medical attention and after 2 weeks did at which time a very abnormal large infiltrating infection process identified. Patient was significant leukocytosis abnormal labs. CT as below. Surgery called to eval and assist with care. Patient seen, patient evaluated, chart reviewed patient is fairly stoic about the condition he does not complain of any pain no nausea vomiting fever chills. He states that there does not hurt much despite it being a very abnormal excessive cellulitis abscess infiltrating infectious process Allergies: Coded Allergies: No Known Allergies (Unverified , 08/03/15) COVID-19 Screening Contact w/high risk pt: No Recent Travel to affected area: No Experienced COVID-19 symptoms?: No Medication History Scheduled Aripiprazole* (Abilify*), 10 MG ORAL DAILY Bethanechol Chl (Bethanechol Chloride), 25 MG ORAL THREE TIMES A DAY Cefazolin Sod (Cefazolin Sodium), 2 GM IVINF EVERY 8 HOURS Divalproex Sodium (Depakote), 500 MG ORAL EVERY 12 HOURS Insulin Aspart (Novolog Flexpen), 0 UNITS SUBQ BEFORE MEALS AND HS Insulin Detemir (Levemir Flexpen), 12 UNITS SUBQ Q24H Pantoprazole* (Protonix*), 40 MG ORAL DAILY Tamsulosin HCl (Flomax), 0.4 MG ORAL BEDTIME Scheduled PRN Acetaminophen* (Acetaminophen 325MG Tablet*), 650 MG ORAL Q4H PRN for fever Polyethylene Glycol 3350* (Miralax*), 17 GM ORAL HSPRN PRN for Constipation Miscellaneous Medications Divalproex Sodium (Divalproex Sodium), 500 MG PO, (Reported) Patient History Limited by: medical condition History Provided By: Patient, Medical Record, PMD Healthcare decision maker Resuscitation status Advanced Directive on File Past Medical/Surgical History Past Medical/Surgical History: (1) Diabetes mellitus (2) Psychosis (3) Hyperglycemic hyperosmolar nonketotic coma (4) Acute renal failure (5) Persistent bacteremia (6) Urinary retention (7) Prostate abscess (8) Sepsis (9) RENU (acute kidney injury) (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 (11) Cellulitis Review of Systems Review of Symptoms General ROS: no weight loss or fever Psychological ROS: no depression or mood changes, no memory loss Ophthalmic ROS: no visual changes or eye irritation ENT ROS: no nasal congestion, hearing loss, dizziness Allergy and Immunology ROS: no allergic symptoms or urticaria Hematological and Lymphatic ROS: no swollen glands, unusual bleeding or bruising Endocrine ROS: no polyuria, polydipsia, weight changes, temperature intolerance Respiratory ROS: no cough, shortness of breath, or wheezing Cardiovascular ROS: no chest pain or dyspnea on exertion Gastrointestinal ROS: denies abdominal pain, bright red blood in stool. Musculoskeletal ROS: no myalgias or arthralgias Neurological ROS: no TIA or stroke symptoms Dermatological ROS: no new or changing skin lesions, rashes or pruritis Physical Exam Physical Exam General appearance: alert, cooperative, no distress, appears stated age Head: See below Eyes: conjunctivae/corneas clear. PERRL, EOM's intact. Fundi benign Throat: Lips, mucosa, and tongue normal. Teeth and gums normal Neck: supple, symmetrical, trachea midline, no adenopathy, thyroid: not enlarged, symmetric, no tenderness/mass/nodules, no carotid bruit and no JVD Lungs: clear to auscultation bilaterally Heart: regular rate and rhythm, S1, S2 normal, no murmur, click, rub or gallop Abdomen: soft, non-tender. Bowel sounds normal. No masses, no organomegaly Extremities: extremities normal, atraumatic, no cyanosis or edema Pulses: 2+ and symmetric Skin: Skin color, texture, turgor normal. No rashes or lesions Neurologic: Grossly normal Last 24 Hour Vital Signs Date Time Temp Pulse Resp B/P (MAP) Pulse Ox O2 Delivery O2 Flow Rate FiO2 12/13/19 16:00 Room Air 12/13/19 16:00 99.5 105 20 124/75 (91) 95 12/13/19 16:00 107 12/13/19 12:00 Room Air 12/13/19 12:00 98.8 106 20 127/65 (85) 97 12/13/19 11:47 107 12/13/19 08:00 98.1 105 20 102/72 (82) 94 12/13/19 08:00 Room Air 12/13/19 07:48 111 12/13/19 04:00 Room Air 12/13/19 04:00 99.3 88 20 127/71 (89) 12/13/19 03:48 112 12/13/19 00:00 98.2 24 132/72 (92) 12/13/19 00:00 Room Air 12/12/19 23:41 107 12/12/19 22:15 Room Air 12/12/19 21:55 99.1 108 28 137/62 100 Room Air 12/12/19 20:45 99.1 108 28 143/68 100 Room Air 12/12/19 19:30 99.1 108 28 112/62 100 Room Air Intake and Output 12/12/19 12/13/19 19:00 07:00 Intake Total 3685 ml 3440 ml Balance 3685 ml 3440 ml Intake Oral 220 ml IV Total 3685 ml 3220 ml # Voids 2 Laboratory Tests Test 12/12/19 23:05 12/13/19 03:45 12/13/19 05:54 12/13/19 12:45 POC Whole Blood Glucose 375 MG/DL (74-106) H 311 MG/DL (74-106) H Pending White Blood Count 57.9 K/UL (4.8-10.8) *H Red Blood Count 3.43 M/UL (4.70-6.10) L Hemoglobin 10.3 G/DL (14.2-18.0) L Hematocrit 31.2 % (42.0-52.0) L Mean Corpuscular Volume 91 FL (80-99) Mean Corpuscular Hemoglobin 30.2 PG (27.0-31.0) Mean Corpuscular Hemoglobin Concent 33.2 G/DL (32.0-36.0) Red Cell Distribution Width 13.2 % (11.6-14.8) Platelet Count 572 K/UL (150-450) H Mean Platelet Volume 8.5 FL (6.5-10.1) Neutrophils (%) (Auto) % (45.0-75.0) Lymphocytes (%) (Auto) % (20.0-45.0) Monocytes (%) (Auto) % (1.0-10.0) Eosinophils (%) (Auto) % (0.0-3.0) Basophils (%) (Auto) % (0.0-2.0) Differential Total Cells Counted 100 Neutrophils % (Manual) 85 % (45-75) H Lymphocytes % (Manual) 4 % (20-45) L Monocytes % (Manual) 8 % (1-10) Eosinophils % (Manual) 0 % (0-3) Basophils % (Manual) 0 % (0-2) Band Neutrophils 3 % (0-8) Nucleated Red Blood Cells 1 /100 WBC Platelet Estimate Increased H Platelet Morphology Normal Sodium Level 139 MMOL/L (136-145) Potassium Level 4.2 MMOL/L (3.5-5.1) Chloride Level 104 MMOL/L (98-107) Carbon Dioxide Level 22 MMOL/L (21-32) Anion Gap 13 mmol/L (5-15) Blood Urea Nitrogen 92 mg/dL (7-18) H Creatinine 2.6 MG/DL (0.55-1.30) H Estimat Glomerular Filtration Rate 26.1 mL/min (>60) Glucose Level 346 MG/DL (74-106) #H Uric Acid 12.3 MG/DL (2.6-7.2) H Calcium Level 8.0 MG/DL (8.5-10.1) L Total Bilirubin 0.5 MG/DL (0.2-1.0) Aspartate Amino Transf (AST/SGOT) 22 U/L (15-37) Alanine Aminotransferase (ALT/SGPT) 15 U/L (12-78) Alkaline Phosphatase 205 U/L (46-116) H Total Creatine Kinase 144 U/L (26-308) Total Protein 6.7 G/DL (6.4-8.2) Albumin 1.1 G/DL (3.4-5.0) L Globulin 5.6 g/dL Albumin/Globulin Ratio 0.2 (1.0-2.7) L Random Vancomycin Level 15.9 ug/mL Valproic Acid (Depakene) Level 4 MCG/ML (50-100) L Test 12/13/19 16:18 POC Whole Blood Glucose 329 MG/DL (74-106) H Height (Feet): 5 Height (Inches): 4.00 Weight (Pounds): 174 Medications Current Medications Medications (Trade) Dose Ordered Sig/Rianan Route PRN Reason Start Time Stop Time Status Last Admin Dose Admin Acetaminophen (Tylenol) 650 mg Q4H PRN ORAL fever 12/13/19 18:00 01/11/20 17:59 Albuterol/ Ipratropium (Albuterol/ Ipratropium) 3 ml Q4H PRN HHN Shortness of Breath 12/13/19 18:00 12/17/19 17:59 Amikacin Protocol (Amikacin pharmacy to dose) 1 ea DAILY PRN MISC Per rx protocol 12/14/19 09:00 01/12/20 11:44 Amikacin Sulfate 1000 mg/Sodium Chloride 114 ml @ 114 mls/hr Q48H IV 12/15/19 13:00 12/20/19 12:59 Aripiprazole (Abilify) 10 mg DAILY ORAL 12/14/19 09:00 01/27/20 08:59 Cefepime HCl 2 gm/ Dextrose 110 ml @ 220 mls/hr Q24H IV 12/13/19 21:00 12/19/19 20:59 Dextrose (Dextrose 50%) 25 ml Q30M PRN IV Hypoglycemia 12/13/19 18:00 03/11/20 19:29 Dextrose (Dextrose 50%) 50 ml Q30M PRN IV Hypoglycemia 12/13/19 18:00 03/11/20 19:29 Divalproex Sodium (Depakote) 500 mg DAILY ORAL 12/14/19 09:00 01/12/20 08:59 Docusate Sodium (Colace) 100 mg THREE TIMES A DAY ORAL 12/13/19 18:00 01/12/20 17:59 12/13/19 17:46 Heparin Sodium (Porcine) (Heparin 5000 units/ml) 5,000 units EVERY 12 HOURS SUBQ 12/13/19 21:00 01/26/20 20:59 Insulin Aspart (NovoLOG) BEFORE MEALS AND HS SUBQ 12/13/19 21:00 03/11/20 20:59 Metronidazole (Flagyl) 500 mg Q8HR ORAL 12/13/19 22:00 12/20/19 08:44 Nitroglycerin (Ntg) 0.4 mg Q5M PRN SL Prn Chest Pain 12/13/19 17:45 01/11/20 19:29 Ondansetron HCl (Zofran) 4 mg Q6H PRN IVP Nausea & Vomiting 12/13/19 18:00 01/11/20 17:59 Pantoprazole (Protonix) 40 mg EVERY 12 HOURS ORAL 12/13/19 21:00 01/12/20 14:14 Polyethylene Glycol (Miralax) 17 gm DAILYPRN PRN ORAL Constipation 12/13/19 18:00 01/11/20 17:59 Sodium Chloride 1,000 ml @ 100 mls/hr Q10H IV 12/13/19 17:45 01/12/20 14:12 Tamsulosin HCl (Flomax) 0.4 mg BEDTIME ORAL 12/13/19 21:00 01/11/20 20:59 Temazepam (Restoril) 15 mg HSPRN PRN ORAL Insomnia 12/13/19 18:00 12/19/19 17:59 Vancomycin HCl ([facility] pharmacy to dose) 1 ea DAILY PRN MISC Per rx protocol 12/14/19 09:00 01/11/20 19:44 Assessment/Plan Problem List: (1) Cellulitis Assessment & Plan: Pt presented on admission with large mass which encircles,R side of neck, R ear and posterior aspect of neck (L)7.9cm x (W)18.5cm . R earlobe is swollen and erythematous. An area distal to R ear and second area posterior to R ear both oozing large amt of Haemopurulent exudate. Pt screams in pain when affected area minimally palpated but when not touched does not complain of pain. Pt reluctantly responds to queries about etiology and and onset of neck swelling and could not confirm being bitten by insects or any trauma. Area cleansed with Betadine and covered with Pressure drsg. Tx.plan: Apply 4x4 gauze with ABD Pads and secure with paper tape. Change prn saturation and daily ENT Evaluation necessary as this is too extensive head and neck and ear process for general surgery will assist with local wound care but intervention would need ENT assistance thank you ICD Codes: L03.90 - Cellulitis, unspecified SNOMED: [id number] Qualifiers: Qualified Codes: L03.221 - Cellulitis of neck (2) Sepsis Assessment & Plan: Leukocytosis abnormal labs extensive cellulitis of the face and middle and ear IV antibiotics per infectious disease We will provide local wound care with Betadine prep and gauze covering Xeroform okay for now Will await ENT evaluation The dominant abnormality is in the right periauricular region. The external auditory canal appears completely obliterated by severe mucosal thickening. Small amount of fluid identified in the middle ear cavity. There is extensive soft tissue edema and swelling noted in the right periauricular region including the postauricular space. There is a small amount of fluid noted in the right mastoid air cells. No cortical erosion or disruption demonstrated. Right scutum remains sharp. Right auditory ossicles shows normal configuration. The right internal auditory canal is also not involved. The left temporal bones appear intact. There is no fracture, bony lesions or erosions. Mastoid air cells are normally pneumatized and aerated. External auditory canal appears patent bilaterally. Middle ear cavities also unremarkable without fluid or soft tissue densities. The scutum are sharp bilaterally. Epitympanum appears normal. Visualized auditory ossicles appear normal in configuration. Inner ear structures including the cochlea, vestibule and semicircular canals are unremarkable. Left IAC appears unremarkable. There is no abnormality of the vestibular aqueduct demonstrated. IMPRESSION: EXTENSIVE SWELLING AND EDEMA REPRESENTING SOFT TISSUE INFECTION INVOLVING THE EXTERNAL AUDITORY CANAL WELL THE PERIAURICULAR SOFT TISSUE AND DEEP SPACES OF THE POSTERIOR UPPER NECK NOTED ON CT NECK. SMALL AMOUNT OF FLUID IN THE RIGHT MIDDLE EAR AND ALSO SMALL AMOUNT OF FLUID IN THE RIGHT MASTOID AIR CELLS. NO BONY DESTRUCTION OF THE TEMPORAL TEMPORAL BONES, AUDITORY OSSICLES OR INNER EAR STRUCTURES DEMONSTRATED. ICD Codes: A41.9 - Sepsis, unspecified organism SNOMED: [id number] Qualifiers: Qualified Codes: A41.9 - Sepsis, unspecified organism Dwayne Ralph Dec 13, 2019 19:05
--- NOTE | 2019-12-13 19:18 | Consultation ---
History of Present Illness General Date patient seen: Dec 13, 2019 Chief Complaint: General Complaint Present Illness HPI 54 y/o M with hx of DM2, HTN, psychosis presented to ED on 12/11 with 2 weeks of R posterior ear pain and drainage, fever/chills. Upon admission was noted to have leukocytosis and RENU. CT of neck and inner ear which showed extenvise soft tissue inflammation around right ear canal without destruction of akila structures. Denied chest pain, SOB Allergies: Coded Allergies: No Known Allergies (Unverified , 08/03/15) Medication History Scheduled Aripiprazole* (Abilify*), 10 MG ORAL DAILY Bethanechol Chl (Bethanechol Chloride), 25 MG ORAL THREE TIMES A DAY Cefazolin Sod (Cefazolin Sodium), 2 GM IVINF EVERY 8 HOURS Divalproex Sodium (Depakote), 500 MG ORAL EVERY 12 HOURS Insulin Aspart (Novolog Flexpen), 0 UNITS SUBQ BEFORE MEALS AND HS Insulin Detemir (Levemir Flexpen), 12 UNITS SUBQ Q24H Pantoprazole* (Protonix*), 40 MG ORAL DAILY Tamsulosin HCl (Flomax), 0.4 MG ORAL BEDTIME Scheduled PRN Acetaminophen* (Acetaminophen 325MG Tablet*), 650 MG ORAL Q4H PRN for fever Polyethylene Glycol 3350* (Miralax*), 17 GM ORAL HSPRN PRN for Constipation Miscellaneous Medications Divalproex Sodium (Divalproex Sodium), 500 MG PO, (Reported) Patient History Healthcare decision maker Resuscitation status Advanced Directive on File Patient History Narrative PMhx: as above Shx: reviewed Fhx: non contributory Review of Systems All Other Systems: negative except mentioned in HPI Physical Exam Physical Exam Narrative General Appearance: alert, moderate distress Head: normocephalic, atraumatic Eyes: bilateral eye PERRL, bilateral eye EOMI ENT: uvula midline, moist mucus membranes, other - Right ear: Swollen externally, red, erythematous, with drainage, right posterior ear skin shows pus and drainage with erythema Neck: supple Respiratory: lungs clear, no respiratory distress, no retraction, no accessory muscle use Cardiovascular #1: normal peripheral pulses, no edema, no gallop, no murmur, tachycardia Gastrointestinal: non tender, soft, no guarding, no rebound Neurologic: alert, oriented x3 Skin: no rash, warm/dry Last 24 Hour Vital Signs Date Time Temp Pulse Resp B/P (MAP) Pulse Ox O2 Delivery O2 Flow Rate FiO2 12/13/19 16:00 Room Air 12/13/19 16:00 99.5 105 20 124/75 (91) 95 12/13/19 16:00 107 12/13/19 12:00 Room Air 12/13/19 12:00 98.8 106 20 127/65 (85) 97 12/13/19 11:47 107 12/13/19 08:00 98.1 105 20 102/72 (82) 94 12/13/19 08:00 Room Air 12/13/19 07:48 111 12/13/19 04:00 Room Air 12/13/19 04:00 99.3 88 20 127/71 (89) 12/13/19 03:48 112 12/13/19 00:00 98.2 24 132/72 (92) 12/13/19 00:00 Room Air 12/12/19 23:41 107 12/12/19 22:15 Room Air 12/12/19 21:55 99.1 108 28 137/62 100 Room Air 12/12/19 20:45 99.1 108 28 143/68 100 Room Air 12/12/19 19:30 99.1 108 28 112/62 100 Room Air Intake and Output 12/12/19 12/13/19 19:00 07:00 Intake Total 3685 ml 3440 ml Balance 3685 ml 3440 ml Intake Oral 220 ml IV Total 3685 ml 3220 ml # Voids 2 Laboratory Tests Test 12/12/19 23:05 12/13/19 03:45 12/13/19 05:54 12/13/19 12:45 POC Whole Blood Glucose 375 MG/DL (74-106) H 311 MG/DL (74-106) H Pending White Blood Count 57.9 K/UL (4.8-10.8) *H Red Blood Count 3.43 M/UL (4.70-6.10) L Hemoglobin 10.3 G/DL (14.2-18.0) L Hematocrit 31.2 % (42.0-52.0) L Mean Corpuscular Volume 91 FL (80-99) Mean Corpuscular Hemoglobin 30.2 PG (27.0-31.0) Mean Corpuscular Hemoglobin Concent 33.2 G/DL (32.0-36.0) Red Cell Distribution Width 13.2 % (11.6-14.8) Platelet Count 572 K/UL (150-450) H Mean Platelet Volume 8.5 FL (6.5-10.1) Neutrophils (%) (Auto) % (45.0-75.0) Lymphocytes (%) (Auto) % (20.0-45.0) Monocytes (%) (Auto) % (1.0-10.0) Eosinophils (%) (Auto) % (0.0-3.0) Basophils (%) (Auto) % (0.0-2.0) Differential Total Cells Counted 100 Neutrophils % (Manual) 85 % (45-75) H Lymphocytes % (Manual) 4 % (20-45) L Monocytes % (Manual) 8 % (1-10) Eosinophils % (Manual) 0 % (0-3) Basophils % (Manual) 0 % (0-2) Band Neutrophils 3 % (0-8) Nucleated Red Blood Cells 1 /100 WBC Platelet Estimate Increased H Platelet Morphology Normal Sodium Level 139 MMOL/L (136-145) Potassium Level 4.2 MMOL/L (3.5-5.1) Chloride Level 104 MMOL/L (98-107) Carbon Dioxide Level 22 MMOL/L (21-32) Anion Gap 13 mmol/L (5-15) Blood Urea Nitrogen 92 mg/dL (7-18) H Creatinine 2.6 MG/DL (0.55-1.30) H Estimat Glomerular Filtration Rate 26.1 mL/min (>60) Glucose Level 346 MG/DL (74-106) #H Uric Acid 12.3 MG/DL (2.6-7.2) H Calcium Level 8.0 MG/DL (8.5-10.1) L Total Bilirubin 0.5 MG/DL (0.2-1.0) Aspartate Amino Transf (AST/SGOT) 22 U/L (15-37) Alanine Aminotransferase (ALT/SGPT) 15 U/L (12-78) Alkaline Phosphatase 205 U/L (46-116) H Total Creatine Kinase 144 U/L (26-308) Total Protein 6.7 G/DL (6.4-8.2) Albumin 1.1 G/DL (3.4-5.0) L Globulin 5.6 g/dL Albumin/Globulin Ratio 0.2 (1.0-2.7) L Random Vancomycin Level 15.9 ug/mL Valproic Acid (Depakene) Level 4 MCG/ML (50-100) L Test 12/13/19 16:18 POC Whole Blood Glucose 329 MG/DL (74-106) H Height (Feet): 5 Height (Inches): 4.00 Weight (Pounds): 174 Medications Current Medications Medications (Trade) Dose Ordered Sig/Rianna Route PRN Reason Start Time Stop Time Status Last Admin Dose Admin Acetaminophen (Tylenol) 650 mg Q4H PRN ORAL fever 12/13/19 18:00 01/11/20 17:59 Albuterol/ Ipratropium (Albuterol/ Ipratropium) 3 ml Q4H PRN HHN Shortness of Breath 12/13/19 18:00 12/17/19 17:59 Amikacin Protocol (Amikacin pharmacy to dose) 1 ea DAILY PRN MISC Per rx protocol 12/14/19 09:00 01/12/20 11:44 Amikacin Sulfate 1000 mg/Sodium Chloride 114 ml @ 114 mls/hr Q48H IV 12/15/19 13:00 12/20/19 12:59 Aripiprazole (Abilify) 10 mg DAILY ORAL 12/14/19 09:00 01/27/20 08:59 Cefepime HCl 2 gm/ Dextrose 110 ml @ 220 mls/hr Q24H IV 12/13/19 21:00 12/19/19 20:59 Dextrose (Dextrose 50%) 25 ml Q30M PRN IV Hypoglycemia 12/13/19 18:00 03/11/20 19:29 Dextrose (Dextrose 50%) 50 ml Q30M PRN IV Hypoglycemia 12/13/19 18:00 03/11/20 19:29 Divalproex Sodium (Depakote) 500 mg DAILY ORAL 12/14/19 09:00 01/12/20 08:59 Docusate Sodium (Colace) 100 mg THREE TIMES A DAY ORAL 12/13/19 18:00 01/12/20 17:59 12/13/19 17:46 Heparin Sodium (Porcine) (Heparin 5000 units/ml) 5,000 units EVERY 12 HOURS SUBQ 12/13/19 21:00 01/26/20 20:59 Insulin Aspart (NovoLOG) BEFORE MEALS AND HS SUBQ 12/13/19 21:00 03/11/20 20:59 Metronidazole (Flagyl) 500 mg Q8HR ORAL 12/13/19 22:00 12/20/19 08:44 Nitroglycerin (Ntg) 0.4 mg Q5M PRN SL Prn Chest Pain 12/13/19 17:45 01/11/20 19:29 Ondansetron HCl (Zofran) 4 mg Q6H PRN IVP Nausea & Vomiting 12/13/19 18:00 01/11/20 17:59 Pantoprazole (Protonix) 40 mg EVERY 12 HOURS ORAL 12/13/19 21:00 01/12/20 14:14 Polyethylene Glycol (Miralax) 17 gm DAILYPRN PRN ORAL Constipation 12/13/19 18:00 01/11/20 17:59 Sodium Chloride 1,000 ml @ 100 mls/hr Q10H IV 12/13/19 17:45 01/12/20 14:12 Tamsulosin HCl (Flomax) 0.4 mg BEDTIME ORAL 12/13/19 21:00 01/11/20 20:59 Temazepam (Restoril) 15 mg HSPRN PRN ORAL Insomnia 12/13/19 18:00 12/19/19 17:59 Vancomycin HCl ([facility] pharmacy to dose) 1 ea DAILY PRN MISC Per rx protocol 12/14/19 09:00 01/11/20 19:44 Assessment/Plan Assessment/Plan: Abx: Amikacin 12/12- IV Vancomycin 12/11- Cefepime 12/12- Flagyl 12/12- Zosyn x 1 12/11 Assessment: Severe Sepsis Severe R otitis externa, otitis media and mastoiditis w/ extension to deep spaces of neck; necrotizing infection- watch out for Lemerie syndrome -CT IAC: EXTENSIVE SWELLING AND EDEMA REPRESENTING SOFT TISSUE INFECTION INVOLVING THE EXTERNAL AUDITORY CANAL WELL THE PERIAURICULAR SOFT TISSUE AND DEEP SPACES OF THE POSTERIOR UPPER NECK NOTED ON CT NECK. SMALL AMOUNT OF FLUID IN THE RIGHT MIDDLE EAR AND ALSO SMALL AMOUNT OF FLUID IN THE RIGHT MASTOID AIR CELLS. NO BONY DESTRUCTION OF THE TEMPORAL TEMPORAL BONES, AUDITORY OSSICLES OR INNER EAR STRUCTURES DEMONSTRATED. -12/11 CT head wo: No acute intracranial abnormality. Severe soft tissue swelling and inflammation noted in the right external auditory canal, right postauricular region with extension and involvement of the deep soft tissue of the upper neck and skull base region. CT neck: Findings of extensive soft tissue inflammation and edema affecting the right face and neck spanning the skull base down to the lower neck. Given the clinical history of severe otitis externa, this may represent severe soft tissue infection with possible phlegmon/abscess formation particularly in the deep upper neck musculature which is asymmetrically thickened compared to the contralateral left. There is likely confluent adenopathy in the posterior triangle and anterior cervical chain. Gram positive bacteremia- r.o MRSA- 2ry to above - r/o endocarditis -12/11 Bcx 09/20 GPC clusters Low grade fever Hyperleukocytosis -12/11 CXR: no acute disease RENU DM2 HTN psychosis Plan: -Continue empiric IV Vancomycin #2, CEfepime #1 (abx d#2), Flagyl #1 -Dc IV amikacin #1 -f/u cx -Monitor CBC/CMP, temperatures -Needs urgent ENT evaluation- severe infection with extension to deep spaces of neck and severe sepsis -COVID19 isolation and testing in anticipation for surgical management -culture from ear drainage Thank you for consulting [facility]. Will continue to follow along with you. Discussed jayy LEBRON and Dr Ralph. Stephanie Carter M.D. Dec 13, 2019 19:18
--- NOTE | 2019-12-13 19:30 | NUR ---
HAND-OFF: Report given to Calista Rangel RN. Patient stable. Plan of care endorsed.
[2019-12-13 20:00] VITALS: BP 128/76
[2019-12-13] MEDS ORDERED: Tamsulosin 0.4mg cap ORAL SCH (21:00)
[2019-12-13] MEDS ORDERED: Cefepime HCl 2 GM in D5W 110 ML IV SCH ×2 (21:00→22:00)
--- NOTE | 2019-12-13 21:10 | NUR ---
NURSE NOTES: Patient given anti-anxiety medication and tylenol 600 mg for temperature of 102.2. Patient in stable condition and anxiety and respirations went down. Current vital signs (21:05) BP: 127 / 79, RR: 25, SpO2: 96%, Heart rate: 99. Addendum: 12/14/19 at 0415 by Ron Rangel RN Documented on the wrong patient.
--- NOTE | 2019-12-13 22:30 | NUR ---
NURSE NOTES: Called pipeline regarding cefepime hydrochloride not available in the Pyxis.
--- NOTE | 2019-12-13 23:00 | NUR ---
NURSE NOTES: Discarded old dressing on the neck and ear area and applied normal saline with gauze. Area of concern is now clean, yet still red and swollen. MD aware. Applied multiple gauze dressings for the exudate and an optifoam over it. Patient tolerated the procedure well.
[2019-12-14] VITALS (16 sets, daily range): BP systolic 95–144; BP diastolic 58–102
--- NOTE | 2019-12-14 01:00 | NUR ---
NURSE NOTES: Patient took out the lower left forearm 20g IV catheter, IV site is intact, no bleeding, no redness, no tenderness or pain upon questioning. An IV was started on the left forearm 22g, patent, intact, flushed 10cc well, no redness, no leaking. Running the prescribed fluids at the prescribed rate.
--- NOTE | 2019-12-14 01:00 | History and Physical Report ---
DATE OF ADMISSION: 12/12/2019 CHIEF COMPLAINT: Right ear discharge. HISTORY OF PRESENT ILLNESS: The patient is a 54-year-old gentleman with past medical history significant for diabetes type 2, history of psychiatric disorder, nonspecified with psychosis, hyperosmolar coma, BPH, GERD, who presented to the hospital from nursing facility after he was noted to have right posterior ear discharges over the past 2 weeks associated with fever, chills. The patient denies any nausea or vomiting. Denies any double vision. Denies any decreased hearing acuity. Shortly after initial evaluation in emergency, the patient had a CT scan of the neck done, noted the patient has extensive soft tissue inflammation and edema affecting the right face and neck the skull base down to the lower neck. Given the clinical history of severe otitis externa, this may represent severe soft tissue infection with possible lamina abscess formation, particularly in the deep upper neck musculature, which is confluent adenopathy in the posterior triangle and anterior cervical chain. Subsequently, the patient was admitted to the hospital secondary to sepsis as a result of the right facial infection, possible abscess. PAST MEDICAL HISTORY/PAST SURGICAL HISTORY: As above, history of diabetes type 2, morbid obesity, BPH, history of psychiatric disorder, hyperosmolar coma, was admitted previously at [facility]. MEDICATIONS AT HOME: Please refer to medication reconciliation. ALLERGIES: No known drug allergies. SOCIAL HISTORY: Denies any smoking, alcohol, or drugs at this time. Living in assisted living. FAMILY HISTORY: Noncontributory. REVIEW OF SYSTEMS: Very limited secondary to the patient's status. The patient is a poor historian. Denies any chest pain or shortness of breath; however, complaining about fever, chills. Denies any nausea or vomiting. Denies any loss of consciousness. Denies any fall or head trauma. PHYSICAL EXAMINATION: VITAL SIGNS: Admission temperature 99.2, pulse of 105, respirations 18, and blood pressure 119/74. GENERAL: The patient is awake, responsive, no acute distress. HEENT: Pupils are equally reactive to light. Extraocular movements are intact. Right posterior ocular area has discharge, inflamed, tender to touch, erythema. NECK: Supple. No JVD. LUNGS: Good air entry. No wheezes or rales. Decreased air entry in the bases. HEART: S1, S2. Distant heart sounds. No murmur or gallops. ABDOMEN: Soft, nondistended, nontender. Morbidly obese. EXTREMITIES: No cyanosis, clubbing, or edema NEUROLOGIC: Cranial nerves II through XII grossly normal. Motor is 5/5 in all extremities. Gait was not assessed due to patient's status. RECTAL/GENITOURINARY: Refused and deferred. PSYCHIATRIC: Mood and affect are intact. LABORATORY DATA: Admission WBC of 55.2, hemoglobin 11, hematocrit 33, platelet is 590. Sodium 139, potassium 4.2, chloride 104, bicarb 22, BUN 92, creatinine 2.6, GFR is 26, glucose is 346, calcium is 8.0, uric acid is 12.3. Alkaline phosphatase is 205, albumin is 1.1. Troponin 0.00, proBNP of 1123. Valproic acid is 4. Urinalysis, +3 protein, +4 glucose, +2 ketone, negative nitrite, 10-15 wbc's, negative leukocytes. Chest x-ray was noted to be no acute cardiopulmonary disease. CT scan of the auditory canal noted the patient has extensive swelling and edema representing soft tissue infection involving the exterior auditory canal as well as periocular soft tissue and deep space of the posterior upper neck small amount of fluid in the right middle ear and also a small amount of fluid in the right mastoid air cell. No bony destruction of temporal bones, auditory, osseous, or inner ear structure, demonstrated. ASSESSMENT: 1. Sepsis, most likely secondary to the right otitis externa infection with possible abscess of soft tissue around it. 2. Diabetes, type 2, uncontrolled. 3. Morbid obesity. 4. BPH. 5. Acute kidney injury, chronic insufficiency. 6. Dehydration. PLAN: Admit the patient to monitored unit. We will follow up with the laboratory as well as culture, broad-spectrum antibiotics, vancomycin, cefepime, and Flagyl. We will follow up with Dr. Borja from Pulmonary Critical Care and Dr. Ma from Nephrology and ENT consultation. Follow up with culture. Code status is Full Code. DVT prophylaxis, heparin subcutaneously. Holger Benjamin M.D. DR: RICH JOB#: [id number] CC:
--- NOTE | 2019-12-14 02:00 | NUR ---
NURSE NOTES: Changed optifoam dressing and applied normal saline with gauze to remove exudate. Reapplied new optifoam with multiple gauze dressings and patient tolerated procedure well.
[2019-12-14] MEDS: NovoLOG Insulin Flexpen SUBQ SCH ×3 (05:30→17:12)
[2019-12-14] MEDS: metroNIDAZOLE 500mg tab ORAL SCH ×3 (05:31→22:00)
--- NOTE | 2019-12-14 07:37 | Pulmonology Progress Note ---
Subjective Allergies: Coded Allergies: No Known Allergies (Unverified , 08/03/15) Subjective no fever this am, leuk slowly down to 55 BCX + Staph aureus Objective Last 24 Hour Vital Signs Date Time Temp Pulse Resp B/P (MAP) Pulse Ox O2 Delivery O2 Flow Rate FiO2 12/14/19 04:00 112 12/14/19 04:00 Room Air 12/14/19 04:00 98.7 112 19 130/78 (95) 96 12/14/19 00:00 98.8 66 22 98/58 (71) 97 12/14/19 00:00 Room Air 12/14/19 00:00 115 12/13/19 20:00 100 12/13/19 20:00 97.9 89 22 128/76 (93) 95 12/13/19 20:00 Room Air 12/13/19 16:00 Room Air 12/13/19 16:00 99.5 105 20 124/75 (91) 95 12/13/19 16:00 107 12/13/19 12:00 Room Air 12/13/19 12:00 98.8 106 20 127/65 (85) 97 12/13/19 11:47 107 12/13/19 08:00 98.1 105 20 102/72 (82) 94 12/13/19 08:00 Room Air 12/13/19 07:48 111 Intake and Output 12/13/19 12/14/19 19:00 07:00 Intake Total 620 ml 120 ml Balance 620 ml 120 ml Intake Oral 620 ml 120 ml # Voids 1 1 # Bowel Movements 1 2 General Appearance: no acute distress, other - awake, alert, responsive HEENT: normocephalic, atraumatic, anicteric, mucous membranes moist, other - R ear with edema, TTT, erythema dressed, draining purulent discharge Respiratory: lungs clear, no accessory muscle use Cardiovascular: normal rate Abdomen: normal bowel sounds, soft, non tender, non distended Extremities: no edema, pedal pulses normal Neurologic: no motor/sensory deficits, alert, responsive Musculoskeletal: normal muscle bulk Microbiology Date/Time Source Procedure Growth Status 12/12/19 11:40 Blood Blood Culture - Preliminary Staphylococcus Aureus Resulted 12/12/19 11:25 Blood Blood Culture - Preliminary Staphylococcus Aureus Resulted 12/12/19 16:20 Urine,Clean Catch Urine Culture - Final NO GROWTH AFTER 48 HOURS Complete Laboratory Tests 12/13/19 12:45: POC Whole Blood Glucose [Pending] 12/13/19 16:18: POC Whole Blood Glucose 329H 12/13/19 22:16: POC Whole Blood Glucose 295H 12/14/19 05:27: POC Whole Blood Glucose [Pending] Current Medications Medications (Trade) Dose Ordered Sig/Rianna Route PRN Reason Start Time Stop Time Status Last Admin Dose Admin Acetaminophen (Tylenol) 650 mg Q4H PRN ORAL fever 12/13/19 18:00 01/11/20 17:59 Albuterol/ Ipratropium (Albuterol/ Ipratropium) 3 ml Q4H PRN HHN Shortness of Breath 12/13/19 18:00 12/17/19 17:59 Aripiprazole (Abilify) 10 mg DAILY ORAL 12/14/19 09:00 01/27/20 08:59 Cefepime HCl 2 gm/ Dextrose 110 ml @ 220 mls/hr Q24H IV 12/13/19 22:00 12/20/19 21:59 12/13/19 23:42 Dextrose (Dextrose 50%) 25 ml Q30M PRN IV Hypoglycemia 12/13/19 18:00 03/11/20 19:29 Dextrose (Dextrose 50%) 50 ml Q30M PRN IV Hypoglycemia 12/13/19 18:00 03/11/20 19:29 Divalproex Sodium (Depakote) 500 mg DAILY ORAL 12/14/19 09:00 01/12/20 08:59 Docusate Sodium (Colace) 100 mg THREE TIMES A DAY ORAL 12/13/19 18:00 01/12/20 17:59 12/13/19 17:46 Heparin Sodium (Porcine) (Heparin 5000 units/ml) 5,000 units EVERY 12 HOURS SUBQ 12/13/19 21:00 01/26/20 20:59 12/13/19 22:19 Insulin Aspart (NovoLOG) BEFORE MEALS AND HS SUBQ 12/13/19 21:00 03/11/20 20:59 12/14/19 05:30 Metronidazole (Flagyl) 500 mg Q8HR ORAL 12/13/19 22:00 12/20/19 08:44 12/14/19 05:31 Nitroglycerin (Ntg) 0.4 mg Q5M PRN SL Prn Chest Pain 12/13/19 17:45 01/11/20 19:29 Ondansetron HCl (Zofran) 4 mg Q6H PRN IVP Nausea & Vomiting 12/13/19 18:00 01/11/20 17:59 Pantoprazole (Protonix) 40 mg EVERY 12 HOURS ORAL 12/13/19 21:00 01/12/20 14:14 12/13/19 22:17 Polyethylene Glycol (Miralax) 17 gm DAILYPRN PRN ORAL Constipation 12/13/19 18:00 01/11/20 17:59 Sodium Hypochlorite (Dakin's Half Strength) 1 applic DAILY TOPIC 12/14/19 08:00 01/13/20 07:59 Sodium Chloride 1,000 ml @ 100 mls/hr Q10H IV 12/13/19 17:45 01/12/20 14:12 12/14/19 03:26 Tamsulosin HCl (Flomax) 0.4 mg BEDTIME ORAL 12/13/19 21:00 01/11/20 20:59 12/13/19 22:17 Temazepam (Restoril) 15 mg HSPRN PRN ORAL Insomnia 12/13/19 18:00 12/19/19 17:59 [facility]a DAILY PRN MISC Per rx protocol 12/14/19 09:00 01/11/20 19:44 Assessment/Plan Assessment/Plan ASSESSMENT Severe sepsis due to necrotizing infection right ear Staph aureus bacteremia Severe right OE, OM and mastoiditis with necrotizing infection Diabetes mellitus with hyperglycemia RENU secondary to dehydration Anemia Hyponatremia and other electrolyte imbalances Psychosis PLAN OF CARE tele all imaging noted abx as per ID f/up with the ear CX BCX + Staph aureus ENT consult pain management CXR stable IVF monitor renal parameters, electrolytes, correct electrolytes as needed, creat worse hyponatremia resolved f/up with further nephro recx BS management check Hgb A1c pending add Levemir and optimize dose based on BS readings monitor H&H with goal to keep hemoglobin above 7 DVT GI prophylaxis continue psych meds supportive care case discussed and evaluated by supervising physician Paula Tubbs NP Dec 14, 2019 07:37
--- NOTE | 2019-12-14 07:42 | NUR ---
HAND-OFF: Report given to BERNARDINO Randolph. Patient alert and oriented x3, in stable condition, normal saline running at 100 mL / hr, SpO2 99% with nasal cannula 2L. Bed in lowest and locked position, bed alarm activated, call light in reach.
--- NOTE | 2019-12-14 07:42 | NUR ---
NURSE NOTES: Received report from BERNARDINO Velasquez. Pt. AAO x3, no signs of pain or distress. Breathing regular and unlabored on NC. IV infusing NS at 100 mL/hr. No signs of redness or infiltration. Bed low and locked, bed alarm on, call light in reach, fall socks/gown on, fall education provided. Will continue to monitor.
[2019-12-14] MEDS ORDERED: Dakin's 0.25% (Half Strength) 16oz TOPIC SCH (08:00)
[2019-12-14 08:56] LABS: HEMATOCRIT 27.1 % (42.0-52.0); HEMOGLOBIN 9.1 G/DL (14.2-18.0); MEAN CORPUSCULAR VOLUME 91 FL (80-99); PLATELET COUNT 536 K/UL (150-450); RED BLOOD COUNT 2.98 M/UL (4.70-6.10); RED CELL DISTRIBUTION WIDTH 13.2 % (11.6-14.8)
[2019-12-14 08:58] LABS: WHITE BLOOD COUNT 53.2 K/UL (4.8-10.8)
[2019-12-14] MEDS ORDERED: Depakote 500mg tab ORAL SCH (09:00)
[2019-12-14] MEDS ORDERED: Amikacin Rx to dose MISC PRN (09:00)
[2019-12-14] MEDS ORDERED: ARIPiprazole 10mg tab ORAL SCH (09:00)
[2019-12-14] MEDS: Docusate 100mg cap ORAL SCH ×3 (09:02→17:13)
[2019-12-14] MEDS: Heparin 5000 units/ml inj SUBQ SCH (09:03)
--- NOTE | 2019-12-14 09:11 | Surgery Progress Note ---
Surgery Progress Note Subjective Additional Comments labs noted leukocytosis wound draining seen by ENT Dr. Jaffe recommend oral abx and local topical abx wound care local Objective Last 24 Hour Vital Signs Date Time Temp Pulse Resp B/P (MAP) Pulse Ox O2 Delivery O2 Flow Rate FiO2 12/14/19 07:55 97.7 101 19 144/81 (102) 96 12/14/19 04:00 112 12/14/19 04:00 Room Air 12/14/19 04:00 98.7 112 19 130/78 (95) 96 12/14/19 00:00 98.8 66 22 98/58 (71) 97 12/14/19 00:00 Room Air 12/14/19 00:00 115 12/13/19 20:00 100 12/13/19 20:00 97.9 89 22 128/76 (93) 95 12/13/19 20:00 Room Air 12/13/19 16:00 Room Air 12/13/19 16:00 99.5 105 20 124/75 (91) 95 12/13/19 16:00 107 12/13/19 12:00 Room Air 12/13/19 12:00 98.8 106 20 127/65 (85) 97 12/13/19 11:47 107 I&O Intake and Output 12/13/19 12/14/19 19:00 07:00 Intake Total 620 ml 120 ml Balance 620 ml 120 ml Intake Oral 620 ml 120 ml # Voids 1 1 # Bowel Movements 1 2 Dressing: saturated, other Wound: other Drains: other Cardiovascular: RSR Respiratory: decreased breath sounds Abdomen: soft, non-tender, present bowel sounds Extremities: no tenderness, no cyanosis Laboratory Tests Test 12/13/19 12:45 12/13/19 16:18 12/13/19 22:16 12/14/19 05:27 POC Whole Blood Glucose Pending 329 MG/DL (74-106) H 295 MG/DL (74-106) H Pending Test 12/14/19 07:35 White Blood Count 53.2 K/UL (4.8-10.8) *H Red Blood Count 2.98 M/UL (4.70-6.10) L Hemoglobin 9.1 G/DL (14.2-18.0) L Hematocrit 27.1 % (42.0-52.0) L Mean Corpuscular Volume 91 FL (80-99) Mean Corpuscular Hemoglobin 30.6 PG (27.0-31.0) Mean Corpuscular Hemoglobin Concent 33.6 G/DL (32.0-36.0) Red Cell Distribution Width 13.2 % (11.6-14.8) Platelet Count 536 K/UL (150-450) H Mean Platelet Volume 8.7 FL (6.5-10.1) Neutrophils (%) (Auto) % (45.0-75.0) Lymphocytes (%) (Auto) % (20.0-45.0) Monocytes (%) (Auto) % (1.0-10.0) Eosinophils (%) (Auto) % (0.0-3.0) Basophils (%) (Auto) % (0.0-2.0) Neutrophils % (Manual) Pending Lymphocytes % (Manual) Pending Platelet Estimate Pending Platelet Morphology Pending Erythrocyte Sedimentation Rate Pending Sodium Level Pending Potassium Level Pending Chloride Level Pending Carbon Dioxide Level Pending Blood Urea Nitrogen Pending Creatinine Pending Estimat Glomerular Filtration Rate Pending Glucose Level Pending Hemoglobin A1c Pending Uric Acid Pending Calcium Level Pending Phosphorus Level Pending Magnesium Level Pending Ferritin Pending Total Bilirubin Pending Gamma Glutamyl Transpeptidase Pending Aspartate Amino Transf (AST/SGOT) Pending Alanine Aminotransferase (ALT/SGPT) Pending Alkaline Phosphatase Pending Total Creatine Kinase Pending C-Reactive Protein, Quantitative Pending Pro-B-Type Natriuretic Peptide Pending Total Protein Pending Albumin Pending Globulin Pending Triglycerides Level Pending Cholesterol Level Pending LDL Cholesterol Pending HDL Cholesterol Pending Cholesterol/HDL Ratio Pending Vitamin B12 Level Pending Thyroid Stimulating Hormone (TSH) Pending HIV (1&2) Antibody Rapid Pending Plan Problems: (1) Cellulitis Assessment & Plan: Pt presented on admission with large mass which encircles,R side of neck, R ear and posterior aspect of neck (L)7.9cm x (W)18.5cm . R earlobe is swollen and erythematous. An area distal to R ear and second area posterior to R ear both oozing large amt of Haemopurulent exudate. Pt screams in pain when affected area minimally palpated but when not touched does not complain of pain. Pt reluctantly responds to queries about etiology and and onset of neck swelling and could not confirm being bitten by insects or any trauma. Area cleansed with Betadine and covered with Pressure drsg. Tx.plan: Apply 4x4 gauze with ABD Pads and secure with paper tape. Change prn saturation and daily ENT Evaluation necessary as this is too extensive head and neck and ear process for general surgery will assist with local wound care but intervention would need ENT assistance seen by ENT recommended for oral abx and local topical abx with wound care thank you (2) Sepsis Assessment & Plan: Leukocytosis abnormal labs extensive cellulitis of the face and middle and ear IV antibiotics per infectious disease We will provide local wound care with Betadine prep and gauze covering Xeroform okay for now Will await ENT evaluation The dominant abnormality is in the right periauricular region. The external auditory canal appears completely obliterated by severe mucosal thickening. Small amount of fluid identified in the middle ear cavity. There is extensive soft tissue edema and swelling noted in the right periauricular region including the postauricular space. There is a small amount of fluid noted in the right mastoid air cells. No cortical erosion or disruption demonstrated. Right scutum remains sharp. Right auditory ossicles shows normal configuration. The right internal auditory canal is also not involved. The left temporal bones appear intact. There is no fracture, bony lesions or erosions. Mastoid air cells are normally pneumatized and aerated. External auditory canal appears patent bilaterally. Middle ear cavities also unremarkable without fluid or soft tissue densities. The scutum are sharp bilaterally. Epitympanum appears normal. Visualized auditory ossicles appear normal in configuration. Inner ear structures including the cochlea, vestibule and semicircular canals are unremarkable. Left IAC appears unremarkable. There is no abnormality of the vestibular aqueduct demonstrated. IMPRESSION: EXTENSIVE SWELLING AND EDEMA REPRESENTING SOFT TISSUE INFECTION INVOLVING THE EXTERNAL AUDITORY CANAL WELL THE PERIAURICULAR SOFT TISSUE AND DEEP SPACES OF THE POSTERIOR UPPER NECK NOTED ON CT NECK. SMALL AMOUNT OF FLUID IN THE RIGHT MIDDLE EAR AND ALSO SMALL AMOUNT OF FLUID IN THE RIGHT MASTOID AIR CELLS. NO BONY DESTRUCTION OF THE TEMPORAL TEMPORAL BONES, AUDITORY OSSICLES OR INNER EAR STRUCTURES DEMONSTRATED. Dwayne Ralph Dec 14, 2019 09:11
[2019-12-14 09:32] LABS: ALANINE AMINOTRANSFERASE 12 U/L (12-78); ALBUMIN 1.4 G/DL (3.4-5.0); ALBUMIN/GLOBULIN RATIO 0.3 (1.0-2.7); ALKALINE PHOSPHATASE 167 U/L (46-116); ANION GAP 13 mmol/L (5-15); ASPARTATE AMINO TRANSFERASE 19 U/L (15-37); BILIRUBIN,TOTAL 0.5 MG/DL (0.2-1.0); BLOOD UREA NITROGEN 101 mg/dL (7-18); CALCIUM 7.7 MG/DL (8.5-10.1); CARBON DIOXIDE 21 MMOL/L (21-32); CHLORIDE 103 MMOL/L (98-107); CHOLESTEROL 52 MG/DL (< 200); CREATININE 3.1 MG/DL (0.55-1.30); FERRITIN 1876 NG/ML (8-388); HDL CHOLESTEROL 17 MG/DL (40-60); POTASSIUM 3.8 MMOL/L (3.5-5.1); SODIUM 136 MMOL/L (136-145); TRIGLYCERIDES 61 MG/DL (30-150)
--- NOTE | 2019-12-14 09:34 | NUR ---
NURSE NOTES: Paged Dr. Carter regarding WBC and urine lab order. Unable to collect urine since yesterday as pt. is incontinent. Awaiting call back.
[2019-12-14 09:36] LABS: CREATINE KINASE 110 U/L (26-308); GAMMA GLUTAMYL TRANSPEPTIDASE 22 U/L (5-85); PHOSPHORUS 3.7 MG/DL (2.5-4.9)
[2019-12-14] MEDS ORDERED: Levemir Flexpen SUBQ SCH (10:30)
[2019-12-14] MEDS ORDERED: Vancomycin 750mg/D5W 275ml IVPB ONE ×2 (12:00)
[2019-12-14] MEDS ORDERED: Vancomycin 1.25gm/NS Premix q24h IVPB SCH (12:00)
[2019-12-14] MEDS ORDERED: Vancomycin 750 MG in NS 275 ML IVPB SCH (12:00)
[2019-12-14] MEDS: Tamsulosin 0.4mg cap ORAL SCH ×2 (12:43→17:28)
--- NOTE | 2019-12-14 13:12 | Internal Med Progress Note ---
Subjective Date of Service: Dec 14, 2019 Physician Name JoannaKenton Attending Physician Holger Benjamin MD Current Medications Medications (Trade) Dose Ordered Sig/Rianna Route PRN Reason Start Time Stop Time Status Last Admin Dose Admin Acetaminophen (Tylenol) 650 mg Q4H PRN ORAL fever 12/13/19 18:00 01/11/20 17:59 Albuterol/ Ipratropium (Albuterol/ Ipratropium) 3 ml Q4H PRN HHN Shortness of Breath 12/13/19 18:00 12/17/19 17:59 Aripiprazole (Abilify) 10 mg DAILY ORAL 12/14/19 09:00 01/27/20 08:59 12/14/19 09:02 Cefepime HCl 2 gm/ Dextrose 110 ml @ 220 mls/hr Q24H IV 12/13/19 22:00 12/20/19 21:59 12/13/19 23:42 Dextrose (Dextrose 50%) 25 ml Q30M PRN IV Hypoglycemia 12/13/19 18:00 03/11/20 19:29 Dextrose (Dextrose 50%) 50 ml Q30M PRN IV Hypoglycemia 12/13/19 18:00 03/11/20 19:29 Divalproex Sodium (Depakote) 500 mg DAILY ORAL 12/14/19 09:00 01/12/20 08:59 12/14/19 09:02 Docusate Sodium (Colace) 100 mg THREE TIMES A DAY ORAL 12/13/19 18:00 01/12/20 17:59 12/14/19 13:04 Heparin Sodium (Porcine) (Heparin 5000 units/ml) 5,000 units EVERY 12 HOURS SUBQ 12/13/19 21:00 01/26/20 20:59 12/14/19 09:03 Insulin Aspart (NovoLOG) BEFORE MEALS AND HS SUBQ 12/13/19 21:00 03/11/20 20:59 12/14/19 12:05 Insulin Detemir (Levemir) 8 units DAILY SUBQ 12/14/19 10:30 03/13/20 10:29 12/14/19 12:02 Metronidazole (Flagyl) 500 mg Q8HR ORAL 12/13/19 22:00 12/20/19 08:44 12/14/19 13:04 Nitroglycerin (Ntg) 0.4 mg Q5M PRN SL Prn Chest Pain 12/13/19 17:45 01/11/20 19:29 Ondansetron HCl (Zofran) 4 mg Q6H PRN IVP Nausea & Vomiting 12/13/19 18:00 01/11/20 17:59 Pantoprazole (Protonix) 40 mg EVERY 12 HOURS ORAL 12/13/19 21:00 01/12/20 14:14 12/14/19 09:02 Polyethylene Glycol (Miralax) 17 gm DAILYPRN PRN ORAL Constipation 12/13/19 18:00 01/11/20 17:59 Sodium Hypochlorite (Dakin's Half Strength) 1 applic DAILY TOPIC 12/14/19 08:00 01/13/20 07:59 12/14/19 09:20 Sodium Chloride 1,000 ml @ 100 mls/hr Q10H IV 12/13/19 17:45 01/12/20 14:12 12/14/19 09:03 Tamsulosin HCl (Flomax) 0.4 mg BEDTIME ORAL 12/13/19 21:00 12/14/19 18:00 12/13/19 22:17 Tamsulosin HCl (Flomax) 0.4 mg BID ORAL 12/14/19 12:00 01/11/20 20:59 12/14/19 12:43 Temazepam (Restoril) 15 mg HSPRN PRN ORAL Insomnia 12/13/19 18:00 12/19/19 17:59 Vancomycin HCl ([facility] pharmacy to dose) 1 ea DAILY PRN MISC Per rx protocol 12/14/19 09:00 01/11/20 19:44 Allergies: Coded Allergies: No Known Allergies (Unverified , 08/03/15) ROS Limited/Unobtainable: No Constitutional: Reports: no symptoms HEENT: Reports: no symptoms Cardiovascular: Reports: no symptoms Respiratory: Reports: no symptoms Genitourinary: Reports: no symptoms Neurologic/Psychiatric: Reports: no symptoms Subjective 54 YO M admitted with severe right otitis media and externa. Now sepsis. Cover for Int Samuel-Dr Benjamin Objective Last Vital Signs Date Time Temp Pulse Resp B/P (MAP) Pulse Ox O2 Delivery O2 Flow Rate FiO2 12/14/19 08:00 112 12/14/19 08:00 Nasal Cannula 2.0 12/14/19 07:55 97.7 19 144/81 (102) 96 Laboratory Tests Test 12/13/19 16:18 12/13/19 22:16 12/14/19 05:27 12/14/19 07:35 POC Whole Blood Glucose 329 MG/DL (74-106) H 295 MG/DL (74-106) H Pending White Blood Count 53.2 K/UL (4.8-10.8) *H Red Blood Count 2.98 M/UL (4.70-6.10) L Hemoglobin 9.1 G/DL (14.2-18.0) L Hematocrit 27.1 % (42.0-52.0) L Mean Corpuscular Volume 91 FL (80-99) Mean Corpuscular Hemoglobin 30.6 PG (27.0-31.0) Mean Corpuscular Hemoglobin Concent 33.6 G/DL (32.0-36.0) Red Cell Distribution Width 13.2 % (11.6-14.8) Platelet Count 536 K/UL (150-450) H Mean Platelet Volume 8.7 FL (6.5-10.1) Neutrophils (%) (Auto) % (45.0-75.0) Lymphocytes (%) (Auto) % (20.0-45.0) Monocytes (%) (Auto) % (1.0-10.0) Eosinophils (%) (Auto) % (0.0-3.0) Basophils (%) (Auto) % (0.0-2.0) Differential Total Cells Counted 100 Neutrophils % (Manual) 87 % (45-75) H Lymphocytes % (Manual) 3 % (20-45) L Monocytes % (Manual) 4 % (1-10) Eosinophils % (Manual) 0 % (0-3) Basophils % (Manual) 0 % (0-2) Metamyelocytes % 1 % (0-0) H Myelocytes % 1 % (0-0) H Band Neutrophils 4 % (0-8) Platelet Estimate Increased H Platelet Morphology Normal Hypochromasia 1+ Erythrocyte Sedimentation Rate 129 MM/HR (0-20) H Sodium Level 136 MMOL/L (136-145) Potassium Level 3.8 MMOL/L (3.5-5.1) Chloride Level 103 MMOL/L (98-107) Carbon Dioxide Level 21 MMOL/L (21-32) Anion Gap 13 mmol/L (5-15) Blood Urea Nitrogen 101 mg/dL (7-18) H Creatinine 3.1 MG/DL (0.55-1.30) H Estimat Glomerular Filtration Rate 21.3 mL/min (>60) Glucose Level 295 MG/DL (74-106) H Hemoglobin A1c 8.7 % (4.3-6.0) H Uric Acid 12.4 MG/DL (2.6-7.2) H Calcium Level 7.7 MG/DL (8.5-10.1) L Phosphorus Level 3.7 MG/DL (2.5-4.9) Magnesium Level 2.5 MG/DL (1.8-2.4) H Ferritin 1876 NG/ML (8-388) H Total Bilirubin 0.5 MG/DL (0.2-1.0) Gamma Glutamyl Transpeptidase 22 U/L (5-85) Aspartate Amino Transf (AST/SGOT) 19 U/L (15-37) Alanine Aminotransferase (ALT/SGPT) 12 U/L (12-78) Alkaline Phosphatase 167 U/L (46-116) H Total Creatine Kinase 110 U/L (26-308) C-Reactive Protein, Quantitative 42.5 mg/dL (0.00-0.90) H Pro-B-Type Natriuretic Peptide 1238 pg/mL (0-125) H Total Protein 6.8 G/DL (6.4-8.2) Albumin 1.4 G/DL (3.4-5.0) L Globulin 5.4 g/dL Albumin/Globulin Ratio 0.3 (1.0-2.7) L Triglycerides Level 61 MG/DL (30-150) Cholesterol Level 52 MG/DL (< 200) LDL Cholesterol 19 mg/dL (<100) HDL Cholesterol 17 MG/DL (40-60) L Cholesterol/HDL Ratio 3.1 (3.3-4.4) L Vitamin B12 Level > 2000 PG/ML (193-986) H Thyroid Stimulating Hormone (TSH) 0.226 uiU/mL (0.358-3.740) HIV (1&2) Antibody Rapid Negative (NEGATIVE) Test 12/14/19 11:44 POC Whole Blood Glucose 337 MG/DL (74-106) H Microbiology Date/Time Source Procedure Growth Status 12/12/19 11:40 Blood Blood Culture - Preliminary Staphylococcus Aureus Resulted 12/12/19 11:25 Blood Blood Culture - Preliminary Staphylococcus Aureus Resulted 12/12/19 16:20 Urine,Clean Catch Urine Culture - Final NO GROWTH AFTER 48 HOURS Complete Intake and Output 12/13/19 12/14/19 19:00 07:00 Intake Total 620 ml 120 ml Balance 620 ml 120 ml Intake Oral 620 ml 120 ml # Voids 1 1 # Bowel Movements 1 2 Objective PHYSICAL EXAMINATION: GENERAL: The patient is awake, responsive, no acute distress. HEENT: Pupils are equally reactive to light. Extraocular movements are intact. Right posterior ocular area has discharge, inflamed, tender to touch, erythema. NECK: Supple. No JVD. LUNGS: Good air entry. No wheezes or rales. Decreased air entry in the bases. HEART: S1, S2. Distant heart sounds. No murmur or gallops. ABDOMEN: Soft, nondistended, nontender. Morbidly obese. EXTREMITIES: No cyanosis, clubbing, or edema NEUROLOGIC: Cranial nerves II through XII grossly normal. Motor is 5/5 in all extremities. Gait was not assessed due to patient's status. RECTAL/GENITOURINARY: Refused and deferred. PSYCHIATRIC: Mood and affect are intact. Assessment/Plan Assessment/Plan ASSESSMENT: 1. Sepsis=Staph Aureus 2. right otitis externa/media infection with possible abscess of soft tissue around it. 2. Diabetes, type 2, uncontrolled. 3. Morbid obesity. 4. BPH. 5. Acute kidney injury, chronic insufficiency. 6. Dehydration. PLAN: 1. Admit the patient to monitored unit. 2. antibiotics=vancomycin, cefepime, and amikacin ID=Dr Carter 3. Dr. Borja = Pulmonary Critical Care 4. Dr. Ma = Nephrology 5. ENT consultation. 6. Code status is Full Code. 7. DVT prophylaxis = heparin subcutaneously. Kenton Marshall MD Dec 14, 2019 13:12
--- NOTE | 2019-12-14 13:33 | NUR ---
NURSE NOTES: Urine specimen collected and sent to lab.
--- NOTE | 2019-12-14 13:54 | NUR ---
NURSE NOTES: Huddled with Dr. Sunshine regarding uptrending BUN/CRE. aware that the pt. is diuresing. No new orders at this time.
[2019-12-14 14:20] LABS: APPEARANCE,URINE CLEAR; BILIRUBIN, URINE NEGATIVE (NEGATIVE); GLUCOSE, URINE (UA) 4+ (NEGATIVE); KETONES,URINE NEGATIVE (NEGATIVE); LEUKOCYTE ESTERASE ,URINE 1+ (NEGATIVE); NITRITE,URINE NEGATIVE (NEGATIVE); PH,URINE 5 (4.5-8.0); PROTEIN,URINE 3+ (NEGATIVE); UROBILINOGEN,URINE NORMAL MG/DL (0.0-1.0)
[2019-12-14 14:22] LABS: COLOR,URINE YELLOW
--- NOTE | 2019-12-14 14:24 | Nephrology Progress Note ---
Assessment/Plan Problem List: (1) RENU (acute kidney injury) (2) Malignant otitis externa of right ear (3) Cellulitis (4) Diabetes mellitus Assessment Acute renal failure in this 54-year-old male with diabetes and leukocytosis who currently presents with malignant overall otitis externa of the right ear Renal failure mainly prerenal Anemia Dehydration Electrolyte imbalances Sepsis/cellulitis Plan Start allopurinol Normal saline IV Albumin bolus Monitor renal parameters and electrolytes Keep the blood sugar and blood pressure in check Urine studies Per orders Subjective ROS Limited/Unobtainable: No Constitutional: Reports: malaise Objective Objective Last 24 Hour Vital Signs Date Time Temp Pulse Resp B/P (MAP) Pulse Ox O2 Delivery O2 Flow Rate FiO2 12/14/19 12:00 112 12/14/19 12:00 98.4 80 18 142/82 (102) 97 12/14/19 08:00 112 12/14/19 08:00 Nasal Cannula 2.0 12/14/19 07:55 97.7 101 19 144/81 (102) 96 12/14/19 04:00 112 12/14/19 04:00 Room Air 12/14/19 04:00 98.7 112 19 130/78 (95) 96 12/14/19 00:00 98.8 66 22 98/58 (71) 97 12/14/19 00:00 Room Air 12/14/19 00:00 115 12/13/19 20:00 100 12/13/19 20:00 97.9 89 22 128/76 (93) 95 12/13/19 20:00 Room Air 12/13/19 16:00 Room Air 12/13/19 16:00 99.5 105 20 124/75 (91) 95 12/13/19 16:00 107 Intake and Output 12/13/19 12/14/19 19:00 07:00 Intake Total 620 ml 120 ml Balance 620 ml 120 ml Intake Oral 620 ml 120 ml # Voids 1 1 # Bowel Movements 1 2 Laboratory Tests 12/13/19 16:18: POC Whole Blood Glucose 329H 12/13/19 22:16: POC Whole Blood Glucose 295H 12/14/19 05:27: POC Whole Blood Glucose [Pending] 12/14/19 07:35: White Blood Count 53.2*H, Red Blood Count 2.98L, Hemoglobin 9.1L, Hematocrit 27.1L, Mean Corpuscular Volume 91, Mean Corpuscular Hemoglobin 30.6, Mean Corpuscular Hemoglobin Concent 33.6, Red Cell Distribution Width 13.2, Platelet Count 536H, Mean Platelet Volume 8.7, Neutrophils (%) (Auto) , Lymphocytes (%) ( Auto) , Monocytes (%) (Auto) , Eosinophils (%) (Auto) , Basophils (%) (Auto) , Differential Total Cells Counted 100, Neutrophils % (Manual) 87H, Lymphocytes % (Manual) 3L, Monocytes % (Manual) 4, Eosinophils % (Manual) 0, Basophils % ( Manual) 0, Metamyelocytes % 1H, Myelocytes % 1H, Band Neutrophils 4, Platelet Estimate IncreasedH, Platelet Morphology Normal, Hypochromasia 1+, Erythrocyte Sedimentation Rate 129H, Sodium Level 136, Potassium Level 3.8, Chloride Level 103, Carbon Dioxide Level 21, Anion Gap 13, Blood Urea Nitrogen 101H, Creatinine 3.1H, Estimat Glomerular Filtration Rate 21.3, Glucose Level 295H, Hemoglobin A1c 8.7H, Uric Acid 12.4H, Calcium Level 7.7L, Phosphorus Level 3.7, Magnesium Level 2.5H, Ferritin 1876H, Total Bilirubin 0.5, Gamma Glutamyl Transpeptidase 22, Aspartate Amino Transf (AST/SGOT) 19, Alanine Aminotransferase (ALT/SGPT) 12, Alkaline Phosphatase 167H, Total Creatine Kinase 110, C-Reactive Protein, Quantitative 42.5H, Pro-B-Type Natriuretic Peptide 1238H, Total Protein 6.8, Albumin 1.4L, Globulin 5.4, Albumin/Globulin Ratio 0.3L, Triglycerides Level 61, Cholesterol Level 52, LDL Cholesterol 19, HDL Cholesterol 17L, Cholesterol/HDL Ratio 3.1L, Vitamin B12 Level > 2000H, Thyroid Stimulating Hormone (TSH) 0.226L, HIV (1&2) Antibody Rapid Negative 12/14/19 11:44: POC Whole Blood Glucose 337H Height (Feet): 5 Height (Inches): 4.00 Weight (Pounds): 174 General Appearance: no apparent distress Cardiovascular: tachycardia Respiratory/Chest: decreased breath sounds Abdomen: distended Objective No change Harsh Ma MD Dec 14, 2019 14:24
[2019-12-14] MEDS ORDERED: NS 275ml ONE (17:11)
[2019-12-14] MEDS ORDERED: Tubing IV Secondary IV ONE (17:11)
--- NOTE | 2019-12-14 19:29 | NUR ---
HAND-OFF: Report given to BERNARDINO Khan.
--- NOTE | 2019-12-14 19:35 | NUR ---
NURSE NOTES: Received report from Asha Wallace RN. Pt in stable condition, no distress noted at this time. Will continue plan of care and close monitoring.
--- NOTE | 2019-12-14 20:00 | NUR ---
NURSE NOTES: Pt noted to have extreme tachycardia. Twelve-lead EKG obtained at the time revealed pt was experiencing SVT. HR 180-200, BP 106/64, T 96.1, O2 98% on 2 lpm via NC. Pt denied pain. Doctors Da Marshall, and Sourav were notified. Sourav ordered lopressor 5mg IV, med given with no effect. Rapid response team called and pt transferred to ICU per Da. All belongings and meds given to ICU staff. Handoff given to Elias Wallace SMALL BUSINESS DIRECTOR. Addendum: 12/14/19 at 1467 by Veronika Arcos RN See [employer] form which is on paper.
--- NOTE | 2019-12-14 20:30 | NUR ---
RAPID RESPONSE: This RN Responded to an SUCTION PLATE ROLLER HAND where patient was noted to be in Afib RVR in the 170s with a stable blood pressure 106/54, afebrile RR 16. Patient was asymptomatic during this time. Dr. Thurman was notified by the Primary nurse. Primary Nurses received orders for a one time dose of Metoprolol 5 mg IVP and a transfer order to the ICU with Cardizem gtt to be initiated. A 12 lead EKG was obtained during the SUCTION PLATE ROLLER HAND which showed Afib w/ RVR. Patient was on 2L NC during the SUCTION PLATE ROLLER HAND process and was not short of breath. Blood sugar was obtained and was noted to be 358. Patient was alert and oriented the whole time during this process. No incidents during SUCTION PLATE ROLLER HAND. See Rapid Response sheet which remains on paper.
[2019-12-14] MEDS ORDERED: Metoprolol Tartrate 5mg/5ml Inj IVP SCH (20:45)
--- NOTE | 2019-12-14 20:59 | NUR ---
NURSE NOTES: Called Dr. Wise regarding patient having sustained A-fib with RVR in the 180s even after administering Lopressor 5mg IV ONCE. Awaiting callback.
[2019-12-14] MEDS ORDERED: Nitroglycerin Subl 0.4mg tab SL PRN (21:15)
[2019-12-14] MEDS ORDERED: Metoprolol Tartrate 5mg/5ml Inj IVP ONE (21:15)
[2019-12-14] MEDS ORDERED: dilTIAZem Premix 125mg/125ml 125 ML IVPB SCH ×2 (21:15)
--- NOTE | 2019-12-14 21:15 | NUR ---
NURSE NOTES: Patient received from Isrrael LEBRON. Patient is a xfer from telemetry to ICU due to Afib w RVR. Patient brought in to the unit awake, alert and oriented to place, person, time and date. Patient hooked on to the monitor and storage bin tender which showed HR of 170 with rhythm of Afib w/RVR , blood pressure of 96/59 and RR 16 while on 2 L NC. Patient brought in with 1 peripheral IV line on his right wrist (22g) running NS at 100ml/hr. Patient is noted to have a right neck necrotizing wound covered with dressings. Pictures were taken and uploaded. Patient educated about using call light. Yellow socks and yellow wrist band on. Bed alarm on and safety measures in place
[2019-12-14] MEDS ORDERED: Cefepime HCl 2 GM in D5W 110 ML IV SCH (22:00)
[2019-12-14] MEDS ORDERED: Albuterol/Ipratropium 3ml neb HHN PRN (22:00)
--- NOTE | 2019-12-14 22:00 | NUR ---
NURSE NOTES: 20g IV inserted on the Left antecubital with no incident. Patient Still remains in Afib w/RVR in the 150-160s. Cardizem was started at 10mg/hr. Patient is asymptomatic and blood pressure remains within normotensive parameters. Afebrile. Patient performed active range of motion. Patient can self repositioned. Oral care was offered. Head of bed elevated, semi-fowlers position. Aspiration, seizure and fall precautions observed. Will continue to monitor.
--- NOTE | 2019-12-14 23:00 | NUR ---
NURSE NOTES: Cardizem gtt increased to 15mg/hr. HR 155-165 Afib w/ RVR. Blood pressure 105/82. Patient is asymptomatic. SpO2 96%. NAD at this time.
[2019-12-15] VITALS (40 sets, daily range): BP systolic 87–127; BP diastolic 50–92
--- NOTE | 2019-12-15 00:56 | NUR ---
NURSE NOTES: Patient converted to NSR. HR is 98 NSR, 99/65 SpO2 is 97%. Rhythm strip in chart.
--- NOTE | 2019-12-15 01:00 | NUR ---
NURSE NOTES: Cardizem gtt decreased to 10mg/hr. Patient continues to remains in NSR with normotensive blood pressure parameters. IV site remains working patently and is intact and running NS. Patient resting in bed and remains calm. Continues on NC 2L and saturating at 96%. Normal breathing pattern observed.
--- NOTE | 2019-12-15 02:10 | NUR ---
NURSE NOTES: ROM exercises provided per patient tolerance. Pt tolerated care well. Bedside assessment performed. Pt was assessed for pain using FLACC scale with a score of 0 noted. VS obtained and remain stable at this time. Pt repositioned for comfort and safety. Fall, Aspiration, Seizure and Skin precautions observed. Pt remains resting in bed; Bed remains in the lowest position with the safety wheels engaged, call light within reach, side rails up x2 and bed alarm remains activated. Patients HR is 98 NSR, Cardizem gtt remains at 10mg/hr. Patient remains afebrile at this time. ROM exercises provided per patient tolerance. Pt tolerated care well. Will continue to monitor.
--- NOTE | 2019-12-15 04:00 | NUR ---
NURSE NOTES: Bedside assessment performed. Patient has noted not to be urinating for some time now. Gave the urinal to patient and asked him to urinate in the urinal. Patient seemed to struggle to urinate. I used a bladder scanner to see if patient was retaining. Bladder scanner resulted in urinary retention of >999ml. I inserted a 16 F Morgan catheter using aseptic technique, patient tolerated insertion well without incident. Removal of 1500ml of urine after insertion. Bed bath was given and Right wound dressing was changed per MD orders. ROM exercises was provided, per patient tolerance. VS obtained and remain stable at this time. HR is 98 NSR, Cardizem decreased to 5mg/hr. Blood pressure remaining within normotensive parameters. Pt repositioned for comfort and safety. Patient remains awake, alert and oriented. Fall, Aspiration, Seizure and Skin precautions observed. Pt remains resting in bed; Bed remains in the lowest position with the safety wheels engaged, call light within reach, side rails up x2 and bed alarm remains activated.
[2019-12-15] MEDS: metroNIDAZOLE 500mg tab ORAL SCH ×3 (05:59→21:11)
[2019-12-15] MEDS: NovoLOG Insulin Flexpen SUBQ SCH ×4 (06:00→20:43)
--- NOTE | 2019-12-15 06:15 | NUR ---
NURSE NOTES: Bedside assessment performed. ROM exercises was provided, per patient tolerance. AM meds given. VS obtained and remain stable at this time. HR is 97 NSR, Cardizem remains at 5mg/hr. Blood pressure remaining within normotensive parameters. Glucose is 292, insulin coverage given. Pt repositioned for comfort and safety. Patient remains awake, alert and oriented. Fall, Aspiration, Seizure and Skin precautions observed. Pt remains resting in bed; Bed remains in the lowest position with the safety wheels engaged, call light within reach, side rails up x2 and bed alarm remains activated.
[2019-12-15 06:43] LABS: HEMATOCRIT 25.1 % (42.0-52.0); HEMOGLOBIN 8.3 G/DL (14.2-18.0); MEAN CORPUSCULAR VOLUME 91 FL (80-99); PLATELET COUNT 525 K/UL (150-450); RED BLOOD COUNT 2.75 M/UL (4.70-6.10); RED CELL DISTRIBUTION WIDTH 13.2 % (11.6-14.8)
[2019-12-15 06:46] LABS: WHITE BLOOD COUNT 44.4 K/UL (4.8-10.8)
--- NOTE | 2019-12-15 07:07 | NUR ---
HAND-OFF: Report given to Deep Luna RN.
--- NOTE | 2019-12-15 07:12 | NUR ---
NURSE NOTES: Received report from BERNARDINO Griffin. Patient is AAO x4. SR 90s on the monitor. On O2 2L/min via NC and O2 sat 96% on the monitor. Morgan intact and draining with yellow color urine. Left AC 20G intact and running with cardizem 5ml/hr, Right wrist 22G IV intact and running with NS 100ml/hr. Kept dry, clean, comfortable and HOB>30. Will continue plan of care.
[2019-12-15 07:28] LABS: ALANINE AMINOTRANSFERASE 8 U/L (12-78); ALBUMIN 1.2 G/DL (3.4-5.0); ALBUMIN/GLOBULIN RATIO 0.2 (1.0-2.7); ALKALINE PHOSPHATASE 146 U/L (46-116); ANION GAP 13 mmol/L (5-15); ASPARTATE AMINO TRANSFERASE 16 U/L (15-37); BILIRUBIN,TOTAL 0.4 MG/DL (0.2-1.0); BLOOD UREA NITROGEN 106 mg/dL (7-18); CALCIUM 7.2 MG/DL (8.5-10.1); CARBON DIOXIDE 20 MMOL/L (21-32); CHLORIDE 105 MMOL/L (98-107); CREATININE 3.8 MG/DL (0.55-1.30); POTASSIUM 3.5 MMOL/L (3.5-5.1); SODIUM 138 MMOL/L (136-145)
[2019-12-15 07:29] LABS: PHOSPHORUS 4.1 MG/DL (2.5-4.9)
--- NOTE | 2019-12-15 08:20 | Pulmonolgy Critical Care Note ---
Critical Care - Asmt/Plan Assessment/Plan: ASSESSMENT Severe sepsis due to necrotizing infection right ear Staph aureus bacteremia A fib with RVR Severe right OE, OM and mastoiditis with necrotizing infection Diabetes mellitus with hyperglycemia RENU secondary to dehydration Anemia Hyponatremia and other electrolyte imbalances Psychosis PLAN OF CARE in ICU now on Cardizem gtt per cardio already converted to SR all imaging noted ear CX + Staph aureus BCX + Staph aureus abx as per ID ENT consult pain management CXR stable IVF monitor renal parameters, electrolytes, correct electrolytes as needed, hyponatremia resolved creat worse f/up with further nephro recx BS management Hgb A1c 8.2 increase Levemir since BS in 300 range monitor H&H with goal to keep hemoglobin above 7 DVT GI prophylaxis TSH low ? hyperthyroidism, cause of A fib with RVR will get free T3 and T4 continue psych meds supportive care case discussed and evaluated by supervising physician Critical Care - Objective Last 24 Hour Vital Signs Date Time Temp Pulse Resp B/P (MAP) Pulse Ox O2 Delivery O2 Flow Rate FiO2 12/15/19 07:00 92 20 120/69 (86) 98 12/15/19 06:30 98 26 119/65 (83) 98 12/15/19 06:00 98 23 126/72 (90) 97 12/15/19 05:30 90 20 114/69 (84) 97 12/15/19 05:00 89 18 109/69 (82) 98 12/15/19 04:30 100 24 127/76 (93) 98 12/15/19 04:00 98.6 96 21 112/74 (87) 98 12/15/19 04:00 Nasal Cannula 2.0 12/15/19 03:45 98 26 113/70 (84) 98 12/15/19 03:30 99 21 99/62 (74) 98 12/15/19 03:11 97 12/15/19 03:00 91 19 111/57 (75) 98 12/15/19 02:45 97 21 105/60 (75) 92 12/15/19 02:30 96 21 97/50 (66) 99 12/15/19 02:15 94 21 100/63 (75) 98 12/15/19 02:00 98 20 110/60 (77) 99 12/15/19 01:45 106 24 93/54 (67) 79 12/15/19 01:30 96 20 101/54 (70) 83 12/15/19 01:17 99 23 110/62 (78) 90 12/15/19 01:15 97 21 87/60 (69) 94 12/15/19 01:00 100 25 99/65 (76) 94 12/15/19 00:56 98 12/15/19 00:45 160 22 108/66 (80) 92 12/15/19 00:15 151 22 98/68 (78) 96 12/15/19 00:00 97.5 153 26 104/61 (75) 94 12/15/19 00:00 Nasal Cannula 2.0 12/14/19 23:45 158 20 96/62 (73) 97 12/14/19 23:30 158 21 105/82 (90) 91 12/14/19 23:29 185 20 98 12/14/19 23:15 157 22 117/61 (79) 93 12/14/19 23:11 152 12/14/19 23:00 160 20 98/62 (74) 95 12/14/19 22:45 160 20 101/71 (81) 96 12/14/19 22:30 161 18 111/94 (100) 97 12/14/19 22:15 164 23 95/74 (81) 97 12/14/19 22:00 166 25 115/102 (106) 97 12/14/19 21:30 96.7 173 18 111/75 (87) 97 12/14/19 21:30 Nasal Cannula 2.0 12/14/19 21:17 165 12/14/19 21:07 180 106/56 12/14/19 21:00 Room Air 12/14/19 20:00 178 12/14/19 20:00 97.9 115 20 141/77 (98) 98 12/14/19 20:00 98.7 78 20 139/71 (93) 98 12/14/19 16:00 98.7 78 20 139/71 (93) 98 12/14/19 16:00 107 12/14/19 12:00 105 12/14/19 12:00 98.4 80 18 142/82 (102) 97 Objective: General Appearance: no acute distress, awake, alert, responsive HEENT: normocephalic, atraumatic, anicteric, mucous membranes moist, other - R ear with edema, TTT, erythema dressed, draining purulent discharge Respiratory: lungs clear, no accessory muscle use Cardiovascular: normal rate Abdomen: normal bowel sounds, soft, non tender, non distended Extremities: no edema, pedal pulses normal Neurologic: no motor/sensory deficits, alert, responsive Musculoskeletal: normal muscle bulk Micro: Microbiology Date/Time Source Procedure Growth Status 12/13/19 10:35 Blood Blood Culture - Preliminary NO GROWTH AFTER 24 HOURS Resulted 12/13/19 10:20 Blood Blood Culture - Preliminary NO GROWTH AFTER 24 HOURS Resulted 12/12/19 11:40 Blood Blood Culture - Final Staphylococcus Aureus Complete 12/12/19 11:25 Blood Blood Culture - Final Staphylococcus Aureus Complete 12/12/19 16:20 Urine,Clean Catch Urine Culture - Final NO GROWTH AFTER 48 HOURS Complete 12/14/19 00:00 Ear Right Gram Stain - Final Resulted 12/14/19 00:00 Aerobic Culture - Preliminary Staphylococcus Aureus Resulted 12/14/19 00:00 Ear Right Anaerobic Culture Pending Resulted Accucheck: 292 Critical Care - Subjective ROS Limited/Unobtainable: No Interval Events: denies chest pain, SOB, palpitations transferred last night to ICU due to A fob with RVR on Cardizem driop converted to SR leuk trending down, still in 40th remains afebrile creat worse BS in high 200 and 300 range Condition: improving EKG Rhythm: Sinus Rhythm Fluids: NS at 100 Drips: Cardizem drip 5 ml/hr I&O: Intake and Output 12/14/19 12/15/19 19:00 07:00 Intake Total 1240 ml 1470 ml Output Total 800 ml 2100 ml Balance 440 ml -630 ml Intake Oral 140 ml 270 ml IV Total 1100 ml 1100 ml Other 100 ml Output Urine Total 800 ml 2100 ml # Voids 3 # Bowel Movements 3 1 CXR: 12/11 no acute cardiopulmonary pathology Paula Tubbs NP Dec 15, 2019 08:19
[2019-12-15] MEDS: Docusate 100mg cap ORAL SCH ×3 (08:26→17:08)
[2019-12-15] MEDS: Tamsulosin 0.4mg cap ORAL SCH ×2 (08:26→17:08)
[2019-12-15] MEDS: Depakote 500mg tab ORAL SCH (08:26)
[2019-12-15] MEDS: ARIPiprazole 10mg tab ORAL SCH (08:26)
[2019-12-15] MEDS: Heparin 5000 units/ml inj SUBQ SCH ×2 (08:27→20:44)
[2019-12-15] MEDS: Dakin's 0.25% (Half Strength) 16oz TOPIC SCH ×2 (08:28→11:30)
--- NOTE | 2019-12-15 08:30 | Nephrology Progress Note ---
Assessment/Plan Problem List: (1) RENU (acute kidney injury) (2) Malignant otitis externa of right ear (3) Cellulitis (4) Diabetes mellitus Assessment Acute renal failure in this 54-year-old male with diabetes and leukocytosis who currently presents with malignant overall otitis externa of the right ear Renal failure mainly prerenal Anemia Dehydration Electrolyte imbalances Sepsis/cellulitis Plan December 14: Patient in ICU for management of atrial fibrillation with fast ventricular rate. On Cardizem drip. Lab reviewed. Serum creatinine yaw to 3.8. Vancomycin level is 22. Medications reviewed. Will ask for a Morgan catheter. Continue to monitor renal parameters and intake and output. Etiology of acute renal failure multifactorial could be due to medication, sepsis, underlying severe hypoalbuminemia, may be intrinsic kidney disease. If no further improvement in renal function , patient may require dialysis treatment. Will discuss with PMD. Start allopurinol Normal saline IV Albumin bolus Monitor renal parameters and electrolytes Keep the blood sugar and blood pressure in check Urine studies Per orders Subjective ROS Limited/Unobtainable: No Constitutional: Reports: malaise, weakness Objective Objective Last 24 Hour Vital Signs Date Time Temp Pulse Resp B/P (MAP) Pulse Ox O2 Delivery O2 Flow Rate FiO2 12/15/19 07:56 96 Nasal Cannula 2.0 28 12/15/19 07:00 92 20 120/69 (86) 98 12/15/19 06:30 98 26 119/65 (83) 98 12/15/19 06:00 98 23 126/72 (90) 97 12/15/19 05:30 90 20 114/69 (84) 97 12/15/19 05:00 89 18 109/69 (82) 98 12/15/19 04:30 100 24 127/76 (93) 98 12/15/19 04:00 98.6 96 21 112/74 (87) 98 12/15/19 04:00 Nasal Cannula 2.0 12/15/19 03:45 98 26 113/70 (84) 98 12/15/19 03:30 99 21 99/62 (74) 98 12/15/19 03:11 97 12/15/19 03:00 91 19 111/57 (75) 98 12/15/19 02:45 97 21 105/60 (75) 92 12/15/19 02:30 96 21 97/50 (66) 99 12/15/19 02:15 94 21 100/63 (75) 98 12/15/19 02:00 98 20 110/60 (77) 99 12/15/19 01:45 106 24 93/54 (67) 79 12/15/19 01:30 96 20 101/54 (70) 83 12/15/19 01:17 99 23 110/62 (78) 90 12/15/19 01:15 97 21 87/60 (69) 94 12/15/19 01:00 100 25 99/65 (76) 94 12/15/19 00:56 98 12/15/19 00:45 160 22 108/66 (80) 92 12/15/19 00:15 151 22 98/68 (78) 96 12/15/19 00:00 97.5 153 26 104/61 (75) 94 12/15/19 00:00 Nasal Cannula 2.0 12/14/19 23:45 158 20 96/62 (73) 97 12/14/19 23:30 158 21 105/82 (90) 91 12/14/19 23:29 185 20 98 12/14/19 23:15 157 22 117/61 (79) 93 12/14/19 23:11 152 12/14/19 23:00 160 20 98/62 (74) 95 12/14/19 22:45 160 20 101/71 (81) 96 12/14/19 22:30 161 18 111/94 (100) 97 12/14/19 22:15 164 23 95/74 (81) 97 12/14/19 22:00 166 25 115/102 (106) 97 12/14/19 21:30 96.7 173 18 111/75 (87) 97 12/14/19 21:30 Nasal Cannula 2.0 12/14/19 21:17 165 12/14/19 21:07 180 106/56 12/14/19 21:00 Room Air 12/14/19 20:00 178 12/14/19 20:00 97.9 115 20 141/77 (98) 98 12/14/19 20:00 98.7 78 20 139/71 (93) 98 12/14/19 16:00 98.7 78 20 139/71 (93) 98 12/14/19 16:00 107 6/27/20 12:00 105 12/14/19 12:00 98.4 80 18 142/82 (102) 97 Intake and Output 12/14/19 12/15/19 19:00 07:00 Intake Total 1240 ml 1470 ml Output Total 800 ml 2100 ml Balance 440 ml -630 ml Intake Oral 140 ml 270 ml IV Total 1100 ml 1100 ml Other 100 ml Output Urine Total 800 ml 2100 ml # Voids 3 # Bowel Movements 3 1 Laboratory Tests 12/14/19 11:44: POC Whole Blood Glucose 337H 12/14/19 16:00: POC Whole Blood Glucose 335H 12/14/19 20:47: POC Whole Blood Glucose [Pending] 12/15/19 04:00: White Blood Count 44.4*H, Red Blood Count 2.75L, Hemoglobin 8.3L, Hematocrit 25.1L, Mean Corpuscular Volume 91, Mean Corpuscular Hemoglobin 30.2, Mean Corpuscular Hemoglobin Concent 33.2, Red Cell Distribution Width 13.2, Platelet Count 525H, Mean Platelet Volume 8.0, Neutrophils (%) (Auto) , Lymphocytes (%) ( Auto) , Monocytes (%) (Auto) , Eosinophils (%) (Auto) , Basophils (%) (Auto) , Neutrophils % (Manual) [Pending], Lymphocytes % (Manual) [Pending], Platelet Estimate [Pending], Platelet Morphology [Pending], Sodium Level 138, Potassium Level 3.5, Chloride Level 105, Carbon Dioxide Level 20L, Anion Gap 13, Blood Urea Nitrogen 106H, Creatinine 3.8H, Estimat Glomerular Filtration Rate 16.8, Glucose Level 277H, Uric Acid 11.7H, Calcium Level 7.2L, Phosphorus Level 4.1, Magnesium Level 2.4, Total Bilirubin 0.4, Aspartate Amino Transf (AST/SGOT) 16, Alanine Aminotransferase (ALT/SGPT) 8L, Alkaline Phosphatase 146H, C-Reactive Protein, Quantitative 32.1H, Pro-B-Type Natriuretic Peptide 4674H, Total Protein 6.1L, Albumin 1.2L, Globulin 4.9, Albumin/Globulin Ratio 0.2L, Random Vancomycin Level 22.6 Height (Feet): 5 Height (Inches): 4.00 Weight (Pounds): 174 General Appearance: no apparent distress, lethargic Cardiovascular: tachycardia, arrhythmia Respiratory/Chest: decreased breath sounds Abdomen: distended Objective No change Harsh Ma MD Dec 15, 2019 08:30
[2019-12-15] MEDS: Levemir Flexpen SUBQ SCH ×2 (08:58→17:51)
[2019-12-15] MEDS ORDERED: Levemir Flexpen SUBQ SCH (09:00)
--- NOTE | 2019-12-15 09:20 | NUR ---
NURSE NOTES: All due medication given. Kept dry, clean and comfortable.
--- NOTE | 2019-12-15 11:02 | NUR ---
NURSE NOTES: SR on the monitor. No distress noted. Patient denies pain at this time.
--- NOTE | 2019-12-15 11:30 | NUR ---
NURSE NOTES: Spoke to Dr. Carter regarding transferring patient to [facility] for severe R ear/neck abscess. Patient was thought to be declined for [facility] however, [facility] is being tried for acceptance. Spoke to [facility] Transfer [place] at [phone]. Clinical documentation was faxed to [phone]. Awaiting review and possible peer to peer. A transfer back agreement is part of this transfer. Spoke to Caro in who stated that [employer] can sign. This transfer is pending approval from [facility]. This is an URGENT TRANSFER. Drs. Carter and Ramo can do the Peer to Peer on this patient. A rapid Covid has been ordered as an agreement if this transfer is to occur. CT has been requested to be put on disk and has arrived and has been placed with chart. Dr. Ralph and Emma want this patient transferred.
--- NOTE | 2019-12-15 12:31 | Infectious Diseases Prog Note ---
Assessment/Plan Assessment: Severe Sepsis Severe R otitis externa, otitis media and mastoiditis w/ extension to deep spaces of neck; necrotizing infection- watch out for Lemerie syndrome -CT IAC: EXTENSIVE SWELLING AND EDEMA REPRESENTING SOFT TISSUE INFECTION INVOLVING THE EXTERNAL AUDITORY CANAL WELL THE PERIAURICULAR SOFT TISSUE AND DEEP SPACES OF THE POSTERIOR UPPER NECK NOTED ON CT NECK. SMALL AMOUNT OF FLUID IN THE RIGHT MIDDLE EAR AND ALSO SMALL AMOUNT OF FLUID IN THE RIGHT MASTOID AIR CELLS. NO BONY DESTRUCTION OF THE TEMPORAL TEMPORAL BONES, AUDITORY OSSICLES OR INNER EAR STRUCTURES DEMONSTRATED. -12/11 CT head wo: No acute intracranial abnormality. Severe soft tissue swelling and inflammation noted in the right external auditory canal, right postauricular region with extension and involvement of the deep soft tissue of the upper neck and skull base region. CT neck: Findings of extensive soft tissue inflammation and edema affecting the right face and neck spanning the skull base down to the lower neck. Given the clinical history of severe otitis externa, this may represent severe soft tissue infection with possible phlegmon/abscess formation particularly in the deep upper neck musculature which is asymmetrically thickened compared to the contralateral left. There is likely confluent adenopathy in the posterior triangle and anterior cervical chain. --ear drainage cx: S. aureus (sensi P)- prelim MSSA bacteremia-2ry to above -12/11 Bcx 4/4 MSSA; 12/12 Bcx NTD -2d Echo: no vegetations seen Low grade fever, SP Hyperleukocytosis, improving -12/11 CXR: no acute disease AFIB with RVR RENU, worsening DM2 HTN psychosis Plan: -Switch empiric IV Vancomycin #4 to IV Ancef for MSSA -Switch Cefepime #3 (abx d#4) to Levaquin for empiric pseudomonal coverage -Cont Flagyl #3 for anaerobic coverage -12/12 SP IV amikacin #1 -12/11 SP Zosyn x1 -f/u cx -Monitor CBC/CMP, temperatures -Needs urgent ENT evaluation- severe infection with extension to deep spaces of neck and severe sepsis; will initiate transfer to higher level as need surgical debridement -COVID19 isolation and testing in anticipation for surgical management; will order rapid test -f/u culture from ear drainage Thank you for consulting [facility]. Will continue to follow along with you. Discussed wit RN Subjective Allergies: Coded Allergies: No Known Allergies (Unverified , 08/03/15) afebrile at 2l NC transferred to ICU due to Afib with RVR Cr increased repeat Bcx NTD wbc improving but remains on the 40s Objective Last 24 Hour Vital Signs Date Time Temp Pulse Resp B/P (MAP) Pulse Ox O2 Delivery O2 Flow Rate FiO2 12/15/19 09:00 Nasal Cannula 2.0 12/15/19 09:00 96 25 109/64 (79) 97 12/15/19 08:00 Nasal Cannula 2.0 12/15/19 08:00 98.4 99 29 122/92 (102) 97 12/15/19 07:56 96 Nasal Cannula 2.0 28 12/15/19 07:00 92 20 120/69 (86) 98 12/15/19 06:30 98 26 119/65 (83) 98 12/15/19 06:00 98 23 126/72 (90) 97 12/15/19 05:30 90 20 114/69 (84) 97 12/15/19 05:00 89 18 109/69 (82) 98 12/15/19 04:30 100 24 127/76 (93) 98 12/15/19 04:00 98.6 96 21 112/74 (87) 98 12/15/19 04:00 Nasal Cannula 2.0 12/15/19 03:45 98 26 113/70 (84) 98 12/15/19 03:30 99 21 99/62 (74) 98 12/15/19 03:11 97 12/15/19 03:00 91 19 111/57 (75) 98 12/15/19 02:45 97 21 105/60 (75) 92 12/15/19 02:30 96 21 97/50 (66) 99 12/15/19 02:15 94 21 100/63 (75) 98 12/15/19 02:00 98 20 110/60 (77) 99 12/15/19 01:45 106 24 93/54 (67) 79 12/15/19 01:30 96 20 101/54 (70) 83 12/15/19 01:17 99 23 110/62 (78) 90 12/15/19 01:15 97 21 87/60 (69) 94 12/15/19 01:00 100 25 99/65 (76) 94 12/15/19 00:56 98 12/15/19 00:45 160 22 108/66 (80) 92 12/15/19 00:15 151 22 98/68 (78) 96 12/15/19 00:00 97.5 153 26 104/61 (75) 94 12/15/19 00:00 Nasal Cannula 2.0 12/14/19 23:45 158 20 96/62 (73) 97 12/14/19 23:30 158 21 105/82 (90) 91 12/14/19 23:29 185 20 98 12/14/19 23:15 157 22 117/61 (79) 93 12/14/19 23:11 152 12/14/19 23:00 160 20 98/62 (74) 95 12/14/19 22:45 160 20 101/71 (81) 96 12/14/19 22:30 161 18 111/94 (100) 97 12/14/19 22:15 164 23 95/74 (81) 97 12/14/19 22:00 166 25 115/102 (106) 97 12/14/19 21:30 96.7 173 18 111/75 (87) 97 12/14/19 21:30 Nasal Cannula 2.0 12/14/19 21:17 165 12/14/19 21:07 180 106/56 12/14/19 21:00 Room Air 12/14/19 20:00 178 12/14/19 20:00 97.9 115 20 141/77 (98) 98 12/14/19 20:00 98.7 78 20 139/71 (93) 98 12/14/19 16:00 98.7 78 20 139/71 (93) 98 12/14/19 16:00 107 Height (Feet): 5 Height (Inches): 4.00 Weight (Pounds): 174 General Appearance: alert, moderate distress Head: normocephalic, atraumatic Eyes: bilateral eye PERRL, bilateral eye EOMI ENT: uvula midline, moist mucus membranes, other - Right ear: Swollen externally, red, erythematous, with drainage, right posterior ear skin shows pus and drainage with erythema Neck: supple Respiratory: lungs clear, no respiratory distress, no retraction, no accessory muscle use Cardiovascular #1: normal peripheral pulses, no edema, no gallop, no murmur, tachycardia Gastrointestinal: non tender, soft, no guarding, no rebound Neurologic: alert, oriented x3 Skin: no rash, warm/dry Microbiology Date/Time Source Procedure Growth Status 12/13/19 10:35 Blood Blood Culture - Preliminary NO GROWTH AFTER 24 HOURS Resulted 12/13/19 10:20 Blood Blood Culture - Preliminary NO GROWTH AFTER 24 HOURS Resulted 12/12/19 16:20 Urine,Clean Catch Urine Culture - Final NO GROWTH AFTER 48 HOURS Complete 12/14/19 00:00 Ear Right Gram Stain - Final Resulted 12/14/19 00:00 Aerobic Culture - Preliminary Staphylococcus Aureus Resulted 12/14/19 00:00 Ear Right Anaerobic Culture Pending Resulted Laboratory Tests Test 12/14/19 16:00 12/14/19 20:47 12/15/19 04:00 12/15/19 10:56 POC Whole Blood Glucose 335 MG/DL (74-106) H Pending Pending White Blood Count 44.4 K/UL (4.8-10.8) *H Red Blood Count 2.75 M/UL (4.70-6.10) L Hemoglobin 8.3 G/DL (14.2-18.0) L Hematocrit 25.1 % (42.0-52.0) L Mean Corpuscular Volume 91 FL (80-99) Mean Corpuscular Hemoglobin 30.2 PG (27.0-31.0) Mean Corpuscular Hemoglobin Concent 33.2 G/DL (32.0-36.0) Red Cell Distribution Width 13.2 % (11.6-14.8) Platelet Count 525 K/UL (150-450) H Mean Platelet Volume 8.0 FL (6.5-10.1) Neutrophils (%) (Auto) % (45.0-75.0) Lymphocytes (%) (Auto) % (20.0-45.0) Monocytes (%) (Auto) % (1.0-10.0) Eosinophils (%) (Auto) % (0.0-3.0) Basophils (%) (Auto) % (0.0-2.0) Differential Total Cells Counted 100 Neutrophils % (Manual) 83 % (45-75) H Lymphocytes % (Manual) 7 % (20-45) L Monocytes % (Manual) 4 % (1-10) Eosinophils % (Manual) 0 % (0-3) Basophils % (Manual) 0 % (0-2) Band Neutrophils 6 % (0-8) Platelet Estimate Increased H Platelet Morphology Normal Polychromasia 1+ Hypochromasia 1+ Sodium Level 138 MMOL/L (136-145) Potassium Level 3.5 MMOL/L (3.5-5.1) Chloride Level 105 MMOL/L (98-107) Carbon Dioxide Level 20 MMOL/L (21-32) L Anion Gap 13 mmol/L (5-15) Blood Urea Nitrogen 106 mg/dL (7-18) H Creatinine 3.8 MG/DL (0.55-1.30) H Estimat Glomerular Filtration Rate 16.8 mL/min (>60) Glucose Level 277 MG/DL (74-106) H Uric Acid 11.7 MG/DL (2.6-7.2) H Calcium Level 7.2 MG/DL (8.5-10.1) L Phosphorus Level 4.1 MG/DL (2.5-4.9) Magnesium Level 2.4 MG/DL (1.8-2.4) Total Bilirubin 0.4 MG/DL (0.2-1.0) Aspartate Amino Transf (AST/SGOT) 16 U/L (15-37) Alanine Aminotransferase (ALT/SGPT) 8 U/L (12-78) L Alkaline Phosphatase 146 U/L (46-116) H C-Reactive Protein, Quantitative 32.1 mg/dL (0.00-0.90) H Pro-B-Type Natriuretic Peptide 4674 pg/mL (0-125) H Total Protein 6.1 G/DL (6.4-8.2) L Albumin 1.2 G/DL (3.4-5.0) L Globulin 4.9 g/dL Albumin/Globulin Ratio 0.2 (1.0-2.7) L Free Thyroxine 1.26 NG/DL (0.76-1.46) Free Triiodothyronine 0.7 pg/mL (2.3-4.2) L Random Vancomycin Level 22.6 ug/mL Current Medications Medications (Trade) Dose Ordered Sig/Rianna Route PRN Reason Start Time Stop Time Status Last Admin Dose Admin Acetaminophen (Tylenol) 650 mg Q4H PRN ORAL fever 12/14/19 22:00 01/11/20 17:59 Albuterol/ Ipratropium (Albuterol/ Ipratropium) 3 ml Q4H PRN HHN Shortness of Breath 12/14/19 22:00 12/17/19 17:59 Allopurinol (allopurinoL) 300 mg DAILY ORAL 12/15/19 09:00 01/14/20 08:59 12/15/19 08:27 Aripiprazole (Abilify) 10 mg DAILY ORAL 12/15/19 09:00 01/27/20 08:59 12/15/19 08:26 Cefepime HCl 2 gm/ Dextrose 110 ml @ 220 mls/hr Q24H IV 12/14/19 22:00 12/20/19 21:59 12/14/19 22:00 Dextrose (Dextrose 50%) 25 ml Q30M PRN IV Hypoglycemia 12/14/19 21:30 03/11/20 19:29 Dextrose (Dextrose 50%) 50 ml Q30M PRN IV Hypoglycemia 12/14/19 21:30 03/11/20 19:29 Diltiazem HCl 125 ml @ 0 mls/hr Q24H IVPB 12/14/19 21:15 12/15/19 21:14 12/14/19 21:30 Divalproex Sodium (Depakote) 500 mg DAILY ORAL 12/15/19 09:00 01/12/20 08:59 12/15/19 08:26 Docusate Sodium (Colace) 100 mg THREE TIMES A DAY ORAL 12/15/19 09:00 01/12/20 17:59 12/15/19 12:07 Heparin Sodium (Porcine) (Heparin 5000 units/ml) 5,000 units EVERY 12 HOURS SUBQ 12/15/19 09:00 01/26/20 20:59 12/15/19 08:27 Insulin Aspart (NovoLOG) BEFORE MEALS AND HS SUBQ 12/15/19 06:30 03/11/20 20:59 12/15/19 11:00 Insulin Detemir (Levemir) 10 units BID SUBQ 12/15/19 09:00 03/13/20 10:29 12/15/19 08:58 Metronidazole (Flagyl) 500 mg Q8HR ORAL 12/14/19 22:00 12/20/19 08:44 12/15/19 05:59 Nitroglycerin (Ntg) 0.4 mg Q5M PRN SL Prn Chest Pain 12/14/19 21:15 01/11/20 19:29 Ondansetron HCl (Zofran) 4 mg Q6H PRN IVP Nausea & Vomiting 12/15/19 00:00 01/11/20 17:59 Pantoprazole (Protonix) 40 mg EVERY 12 HOURS ORAL 12/15/19 09:00 01/12/20 14:14 12/15/19 08:26 Polyethylene Glycol (Miralax) 17 gm DAILYPRN PRN ORAL Constipation 12/15/19 18:00 01/11/20 17:59 Sodium Hypochlorite (Dakin's Half Strength) 1 applic DAILY TOPIC 12/15/19 09:00 01/13/20 07:59 12/15/19 11:30 Sodium Chloride 1,000 ml @ 100 mls/hr Q10H IV 12/14/19 21:15 01/12/20 14:12 12/15/19 06:00 Tamsulosin HCl (Flomax) 0.4 mg BID ORAL 12/15/19 09:00 01/11/20 20:59 12/15/19 08:26 Temazepam (Restoril) 15 mg HSPRN PRN ORAL Insomnia 12/15/19 18:00 12/19/19 17:59 Vancomycin HCl ([facility] pharmacy to dose) 1 ea DAILY PRN MISC Per rx protocol 12/15/19 09:00 01/11/20 19:44 Stephanie Carter M.D. Dec 15, 2019 12:31
--- NOTE | 2019-12-15 12:38 | NUR ---
NURSE NOTES: Talked with Dr. Wise and updated patient's status and plan. Discontinue cardizem drip and will start cardizem 60mg PO Q6hr. Will transfer to [facility] once stable.
[2019-12-15] MEDS: dilTIAZem HCl 60mg tab ORAL SCH ×2 (12:47→17:08)
[2019-12-15] MEDS ORDERED: Amikacin 1,000 MG in NS 110 ML IV SCH (13:00)
[2019-12-15] MEDS: ceFAZolin sod 1 GM in D5W 55 ML IVPB SCH ×2 (13:28→20:30)
--- NOTE | 2019-12-15 14:02 | NUR ---
TRANSFER UPDATE RECEIVED CALL FROM JEET, [employer] SERVICER, STATING PATIENT NEEDS TO TRANSFER TO HIGHER LEVEL OF CARE FOR ENT PROCEDURE. JEET INITIATED THE TRANSFER TO [facility] AND PROVIDED DR MOYER'S NUMBER FOR MD TO MD CONVERSATION. ACCORDING TO JEET [facility] IS REQUESTING A LETTER OF RETURN TO BE SIGNED BEFORE THEY WILL ACCEPT PATIENT. RELAY TECHNICIAN LEFT MESSAGE FOR GLADYS LEE,MSN, INSTRUCTIONAL SERVICES LIBRARIAN, DIRECTOR OF CASE MANAGEMENT REGARDING SIGNATURE. AWAIT RESPONSE TO WHO WILL SIGN THE FORM. Addendum: 12/16/19 at 0836 by ZOHRA VIRK LVN LVN 12/15/19 @ 5899 LATE ENTRY RECEIVED RESPONSE FROM DIRECTOR OF CASE MANAGEMENT STATING BASEBALL COACH CAN SIGN THE TRANSFER BACK FORM. INFORMATION FORWARDED TO BASEBALL COACH, SHONDA
--- NOTE | 2019-12-15 14:35 | NUR ---
NURSE NOTES: Talked with MAIN Mitchell. Ordered morphine 1mg IVP Q4HR PRN. Will continue plan of care.
--- NOTE | 2019-12-15 15:05 | NUR ---
NURSE NOTES: Seen by Dr. Carter and assessed patient.
--- NOTE | 2019-12-15 15:44 | Internal Med Progress Note ---
Subjective Date of Service: Dec 15, 2019 Physician Name Kenton Marshall Attending Physician Holger Benjamin MD Current Medications Medications (Trade) Dose Ordered Sig/Rianna Route PRN Reason Start Time Stop Time Status Last Admin Dose Admin Acetaminophen (Tylenol) 650 mg Q4H PRN ORAL fever 12/14/19 22:00 01/11/20 17:59 Albuterol/ Ipratropium (Albuterol/ Ipratropium) 3 ml Q4H PRN HHN Shortness of Breath 12/14/19 22:00 12/17/19 17:59 Allopurinol (allopurinoL) 300 mg DAILY ORAL 12/15/19 09:00 01/14/20 08:59 12/15/19 08:27 Aripiprazole (Abilify) 10 mg DAILY ORAL 12/15/19 09:00 01/27/20 08:59 12/15/19 08:26 Cefazolin Sodium 1 gm/Dextrose 55 ml @ 110 mls/hr Q12HR IVPB 12/15/19 13:30 12/22/19 13:29 12/15/19 13:28 Dextrose (Dextrose 50%) 25 ml Q30M PRN IV Hypoglycemia 12/14/19 21:30 03/11/20 19:29 Dextrose (Dextrose 50%) 50 ml Q30M PRN IV Hypoglycemia 12/14/19 21:30 03/11/20 19:29 Diltiazem HCl (Cardizem) 60 mg EVERY 6 HOURS ORAL 12/15/19 12:45 01/14/20 12:44 12/15/19 12:47 Divalproex Sodium (Depakote) 500 mg DAILY ORAL 12/15/19 09:00 01/12/20 08:59 12/15/19 08:26 Docusate Sodium (Colace) 100 mg THREE TIMES A DAY ORAL 12/15/19 09:00 01/12/20 17:59 12/15/19 12:07 Heparin Sodium (Porcine) (Heparin 5000 units/ml) 5,000 units EVERY 12 HOURS SUBQ 12/15/19 09:00 01/26/20 20:59 12/15/19 08:27 Insulin Aspart (NovoLOG) BEFORE MEALS AND HS SUBQ 12/15/19 06:30 03/11/20 20:59 12/15/19 11:00 Insulin Detemir (Levemir) 10 units BID SUBQ 12/15/19 09:00 03/13/20 10:29 12/15/19 08:58 Levofloxacin 150 ml @ 100 mls/hr EVERY OTHER DAY IVPB 12/15/19 22:00 12/22/19 21:59 Metronidazole (Flagyl) 500 mg Q8HR ORAL 12/14/19 22:00 12/20/19 08:44 12/15/19 13:29 Morphine Sulfate (Morphine Sulfate) 1 mg Q4HR PRN IVP For Pain 12/15/19 14:45 12/22/19 14:44 Nitroglycerin (Ntg) 0.4 mg Q5M PRN SL Prn Chest Pain 12/14/19 21:15 01/11/20 19:29 Ondansetron HCl (Zofran) 4 mg Q6H PRN IVP Nausea & Vomiting 12/15/19 00:00 01/11/20 17:59 Pantoprazole (Protonix) 40 mg EVERY 12 HOURS ORAL 12/15/19 09:00 01/12/20 14:14 12/15/19 08:26 Polyethylene Glycol (Miralax) 17 gm DAILYPRN PRN ORAL Constipation 12/15/19 18:00 01/11/20 17:59 Sodium Hypochlorite (Dakin's Half Strength) 1 applic DAILY TOPIC 12/15/19 09:00 01/13/20 07:59 12/15/19 11:30 Sodium Chloride 1,000 ml @ 100 mls/hr Q10H IV 12/14/19 21:15 01/12/20 14:12 12/15/19 06:00 Tamsulosin HCl (Flomax) 0.4 mg BID ORAL 12/15/19 09:00 01/11/20 20:59 12/15/19 08:26 Temazepam (Restoril) 15 mg HSPRN PRN ORAL Insomnia 12/15/19 18:00 12/19/19 17:59 Allergies: Coded Allergies: No Known Allergies (Unverified , 08/03/15) ROS Limited/Unobtainable: No Constitutional: Reports: no symptoms HEENT: Reports: no symptoms Cardiovascular: Reports: no symptoms Respiratory: Reports: no symptoms Gastrointestinal/Abdominal: Reports: no symptoms Genitourinary: Reports: no symptoms Neurologic/Psychiatric: Reports: no symptoms Subjective 54 YO M admitted with severe right otitis media and externa. Now sepsis. Cover for Int Med-Dr Benjamin. Transfered to ICU for atrial fibrillation with rapid ventricular rate Objective Last Vital Signs Date Time Temp Pulse Resp B/P (MAP) Pulse Ox O2 Delivery O2 Flow Rate FiO2 12/15/19 14:00 97 27 114/68 (83) 98 12/15/19 12:00 98.5 12/15/19 12:00 Nasal Cannula 2.0 12/15/19 07:56 28 Laboratory Tests Test 12/14/19 16:00 12/14/19 20:47 12/15/19 04:00 12/15/19 10:56 POC Whole Blood Glucose 335 MG/DL (74-106) H Pending Pending White Blood Count 44.4 K/UL (4.8-10.8) *H Red Blood Count 2.75 M/UL (4.70-6.10) L Hemoglobin 8.3 G/DL (14.2-18.0) L Hematocrit 25.1 % (42.0-52.0) L Mean Corpuscular Volume 91 FL (80-99) Mean Corpuscular Hemoglobin 30.2 PG (27.0-31.0) Mean Corpuscular Hemoglobin Concent 33.2 G/DL (32.0-36.0) Red Cell Distribution Width 13.2 % (11.6-14.8) Platelet Count 525 K/UL (150-450) H Mean Platelet Volume 8.0 FL (6.5-10.1) Neutrophils (%) (Auto) % (45.0-75.0) Lymphocytes (%) (Auto) % (20.0-45.0) Monocytes (%) (Auto) % (1.0-10.0) Eosinophils (%) (Auto) % (0.0-3.0) Basophils (%) (Auto) % (0.0-2.0) Differential Total Cells Counted 100 Neutrophils % (Manual) 83 % (45-75) H Lymphocytes % (Manual) 7 % (20-45) L Monocytes % (Manual) 4 % (1-10) Eosinophils % (Manual) 0 % (0-3) Basophils % (Manual) 0 % (0-2) Band Neutrophils 6 % (0-8) Platelet Estimate Increased H Platelet Morphology Normal Polychromasia 1+ Hypochromasia 1+ Sodium Level 138 MMOL/L (136-145) Potassium Level 3.5 MMOL/L (3.5-5.1) Chloride Level 105 MMOL/L (98-107) Carbon Dioxide Level 20 MMOL/L (21-32) L Anion Gap 13 mmol/L (5-15) Blood Urea Nitrogen 106 mg/dL (7-18) H Creatinine 3.8 MG/DL (0.55-1.30) H Estimat Glomerular Filtration Rate 16.8 mL/min (>60) Glucose Level 277 MG/DL (74-106) H Uric Acid 11.7 MG/DL (2.6-7.2) H Calcium Level 7.2 MG/DL (8.5-10.1) L Phosphorus Level 4.1 MG/DL (2.5-4.9) Magnesium Level 2.4 MG/DL (1.8-2.4) Total Bilirubin 0.4 MG/DL (0.2-1.0) Aspartate Amino Transf (AST/SGOT) 16 U/L (15-37) Alanine Aminotransferase (ALT/SGPT) 8 U/L (12-78) L Alkaline Phosphatase 146 U/L (46-116) H C-Reactive Protein, Quantitative 32.1 mg/dL (0.00-0.90) H Pro-B-Type Natriuretic Peptide 4674 pg/mL (0-125) H Total Protein 6.1 G/DL (6.4-8.2) L Albumin 1.2 G/DL (3.4-5.0) L Globulin 4.9 g/dL Albumin/Globulin Ratio 0.2 (1.0-2.7) L Free Thyroxine 1.26 NG/DL (0.76-1.46) Free Triiodothyronine 0.7 pg/mL (2.3-4.2) L Random Vancomycin Level 22.6 ug/mL Microbiology Date/Time Source Procedure Growth Status 12/13/19 10:35 Blood Blood Culture - Preliminary NO GROWTH AFTER 24 HOURS Resulted 12/13/19 10:20 Blood Blood Culture - Preliminary Resulted 12/12/19 16:20 Urine,Clean Catch Urine Culture - Final NO GROWTH AFTER 48 HOURS Complete 12/14/19 00:00 Ear Right Gram Stain - Final Resulted 12/14/19 00:00 Aerobic Culture - Preliminary Staphylococcus Aureus Resulted 12/14/19 00:00 Ear Right Anaerobic Culture Pending Resulted Intake and Output 12/14/19 12/15/19 19:00 07:00 Intake Total 1240 ml 1470 ml Output Total 800 ml 2100 ml Balance 440 ml -630 ml Intake Oral 140 ml 270 ml IV Total 1100 ml 1100 ml Other 100 ml Output Urine Total 800 ml 2100 ml # Voids 3 # Bowel Movements 3 1 Objective PHYSICAL EXAMINATION: GENERAL: The patient is awake, responsive, no acute distress. HEENT: Pupils are equally reactive to light. Extraocular movements are intact. Right posterior ocular area has discharge, inflamed, tender to touch, erythema. NECK: Supple. No JVD. LUNGS: Good air entry. No wheezes or rales. Decreased air entry in the bases. HEART: S1, S2. Distant heart sounds. No murmur or gallops. ABDOMEN: Soft, nondistended, nontender. Morbidly obese. EXTREMITIES: No cyanosis, clubbing, or edema NEUROLOGIC: Cranial nerves II through XII grossly normal. Motor is 5/5 in all extremities. Gait was not assessed due to patient's status. RECTAL/GENITOURINARY: Refused and deferred. PSYCHIATRIC: Mood and affect are intact. Assessment/Plan Assessment/Plan ASSESSMENT: 1. Sepsis=Staph Aureus 2. right otitis externa/media infection with possible abscess of soft tissue around it. 2. Diabetes, type 2, uncontrolled. 3. Morbid obesity. 4. BPH. 5. Acute kidney injury, chronic insufficiency. 6. Dehydration. 7. atrial fibrillation with rapid ventricular rate PLAN: 1. Admit the patient to monitored unit. 2. antibiotics=vancomycin, cefepime, and amikacin ID=Dr Carter 3. Dr. Borja = Pulmonary Critical Care 4. Dr. Ma = Nephrology 5. ENT consultation. 6. Code status is Full Code. 7. DVT prophylaxis = heparin subcutaneously. 8. Cardiology=Dr Wise 9. Transfer to [facility] when bed available-see ID note Kenton Marshall MD Dec 15, 2019 15:44
--- NOTE | 2019-12-15 16:40 | NUR ---
NURSE NOTES: Rapid covid 19 swab done and sent to lab.
[2019-12-15] MEDS: Morphine Sulfate 2mg/ml Inj(IV/IM USE ONLY) IVP PRN (17:09)
[2019-12-15] MEDS ORDERED: Miralax 17gm pkt ORAL PRN (18:00)
--- NOTE | 2019-12-15 18:00 | NUR ---
NURSE NOTES: Bed bath given. Small brown soft BM noted. No distress noted.
--- NOTE | 2019-12-15 19:22 | NUR ---
HAND-OFF: Report given to BERNARDINO Wolf. Endorsed plan of care.
--- NOTE | 2019-12-15 19:30 | NUR ---
NURSE NOTES: Received pt and report from BERNARDINO Adame. Patient is AAO x4, slow mentally, in no acute distress, SR 90s on the monitor, afebrile. On O2 2L/min via NC and O2 sat 98% on the monitor. Morgan intact and draining with cloudy yellow color urine. Left AC 20G intact TKO, Right wrist 22G IV intact and running with NS 100ml/hr. Right neck wound with drainage noted. Kept dry, clean, comfortable and HOB>30. Will continue plan of care.
--- NOTE | 2019-12-15 20:26 | Surgery Progress Note ---
Surgery Progress Note Subjective Additional Comments initiate transfer to [facility] exam still draining leukocytosis Objective Last 24 Hour Vital Signs Date Time Temp Pulse Resp B/P (MAP) Pulse Ox O2 Delivery O2 Flow Rate FiO2 12/15/19 18:00 86 21 119/67 (84) 98 12/15/19 17:08 97 114/68 12/15/19 17:00 89 21 122/67 (85) 97 12/15/19 16:00 Nasal Cannula 2.0 12/15/19 16:00 98.4 88 19 124/73 (90) 98 12/15/19 16:00 89 12/15/19 15:00 96 26 127/70 (89) 97 12/15/19 14:00 97 27 114/68 (83) 98 12/15/19 13:00 94 29 118/69 (85) 96 12/15/19 12:47 96 109/64 12/15/19 12:00 94 12/15/19 12:00 98.5 96 20 114/67 (83) 97 12/15/19 12:00 Nasal Cannula 2.0 12/15/19 11:30 95 29 108/77 (87) 97 12/15/19 11:00 96 33 104/61 (75) 96 12/15/19 10:30 92 25 113/71 (85) 95 12/15/19 10:00 94 27 109/64 (79) 97 12/15/19 09:00 Nasal Cannula 2.0 12/15/19 09:00 96 25 109/64 (79) 97 12/15/19 08:00 Nasal Cannula 2.0 12/15/19 08:00 98.4 99 29 122/92 (102) 97 12/15/19 08:00 98 12/15/19 07:56 96 Nasal Cannula 2.0 28 12/15/19 07:00 92 20 120/69 (86) 98 12/15/19 06:30 98 26 119/65 (83) 98 12/15/19 06:00 98 23 126/72 (90) 97 12/15/19 05:30 90 20 114/69 (84) 97 12/15/19 05:00 89 18 109/69 (82) 98 12/15/19 04:30 100 24 127/76 (93) 98 12/15/19 04:00 98.6 96 21 112/74 (87) 98 12/15/19 04:00 Nasal Cannula 2.0 12/15/19 03:45 98 26 113/70 (84) 98 12/15/19 03:30 99 21 99/62 (74) 98 12/15/19 03:11 97 12/15/19 03:00 91 19 111/57 (75) 98 12/15/19 02:45 97 21 105/60 (75) 92 12/15/19 02:30 96 21 97/50 (66) 99 12/15/19 02:15 94 21 100/63 (75) 98 12/15/19 02:00 98 20 110/60 (77) 99 12/15/19 01:45 106 24 93/54 (67) 79 12/15/19 01:30 96 20 101/54 (70) 83 12/15/19 01:17 99 23 110/62 (78) 90 12/15/19 01:15 97 21 87/60 (69) 94 12/15/19 01:00 100 25 99/65 (76) 94 12/15/19 00:56 98 12/15/19 00:45 160 22 108/66 (80) 92 12/15/19 00:15 151 22 98/68 (78) 96 12/15/19 00:00 97.5 153 26 104/61 (75) 94 12/15/19 00:00 Nasal Cannula 2.0 12/14/19 23:45 158 20 96/62 (73) 97 12/14/19 23:30 158 21 105/82 (90) 91 12/14/19 23:29 185 20 98 12/14/19 23:15 157 22 117/61 (79) 93 12/14/19 23:11 152 12/14/19 23:00 160 20 98/62 (74) 95 12/14/19 22:45 160 20 101/71 (81) 96 12/14/19 22:30 161 18 111/94 (100) 97 12/14/19 22:15 164 23 95/74 (81) 97 12/14/19 22:00 166 25 115/102 (106) 97 12/14/19 21:30 96.7 173 18 111/75 (87) 97 12/14/19 21:30 Nasal Cannula 2.0 12/14/19 21:17 165 12/14/19 21:07 180 106/56 12/14/19 21:00 Room Air I&O Intake and Output 12/14/19 12/15/19 19:00 07:00 Intake Total 1240 ml 1470 ml Output Total 800 ml 2100 ml Balance 440 ml -630 ml Intake Oral 140 ml 270 ml IV Total 1100 ml 1100 ml Other 100 ml Output Urine Total 800 ml 2100 ml # Voids 3 # Bowel Movements 3 1 Dressing: saturated, other Wound: other Drains: other Cardiovascular: RSR Respiratory: decreased breath sounds Abdomen: soft, non-tender, present bowel sounds Extremities: no edema, no tenderness, no cyanosis Laboratory Tests Test 12/14/19 20:47 12/15/19 04:00 12/15/19 10:56 12/15/19 17:42 POC Whole Blood Glucose Pending Pending 201 MG/DL (74-106) H White Blood Count 44.4 K/UL (4.8-10.8) *H Red Blood Count 2.75 M/UL (4.70-6.10) L Hemoglobin 8.3 G/DL (14.2-18.0) L Hematocrit 25.1 % (42.0-52.0) L Mean Corpuscular Volume 91 FL (80-99) Mean Corpuscular Hemoglobin 30.2 PG (27.0-31.0) Mean Corpuscular Hemoglobin Concent 33.2 G/DL (32.0-36.0) Red Cell Distribution Width 13.2 % (11.6-14.8) Platelet Count 525 K/UL (150-450) H Mean Platelet Volume 8.0 FL (6.5-10.1) Neutrophils (%) (Auto) % (45.0-75.0) Lymphocytes (%) (Auto) % (20.0-45.0) Monocytes (%) (Auto) % (1.0-10.0) Eosinophils (%) (Auto) % (0.0-3.0) Basophils (%) (Auto) % (0.0-2.0) Differential Total Cells Counted 100 Neutrophils % (Manual) 83 % (45-75) H Lymphocytes % (Manual) 7 % (20-45) L Monocytes % (Manual) 4 % (1-10) Eosinophils % (Manual) 0 % (0-3) Basophils % (Manual) 0 % (0-2) Band Neutrophils 6 % (0-8) Platelet Estimate Increased H Platelet Morphology Normal Polychromasia 1+ Hypochromasia 1+ Sodium Level 138 MMOL/L (136-145) Potassium Level 3.5 MMOL/L (3.5-5.1) Chloride Level 105 MMOL/L (98-107) Carbon Dioxide Level 20 MMOL/L (21-32) L Anion Gap 13 mmol/L (5-15) Blood Urea Nitrogen 106 mg/dL (7-18) H Creatinine 3.8 MG/DL (0.55-1.30) H Estimat Glomerular Filtration Rate 16.8 mL/min (>60) Glucose Level 277 MG/DL (74-106) H Uric Acid 11.7 MG/DL (2.6-7.2) H Calcium Level 7.2 MG/DL (8.5-10.1) L Phosphorus Level 4.1 MG/DL (2.5-4.9) Magnesium Level 2.4 MG/DL (1.8-2.4) Total Bilirubin 0.4 MG/DL (0.2-1.0) Aspartate Amino Transf (AST/SGOT) 16 U/L (15-37) Alanine Aminotransferase (ALT/SGPT) 8 U/L (12-78) L Alkaline Phosphatase 146 U/L (46-116) H C-Reactive Protein, Quantitative 32.1 mg/dL (0.00-0.90) H Pro-B-Type Natriuretic Peptide 4674 pg/mL (0-125) H Total Protein 6.1 G/DL (6.4-8.2) L Albumin 1.2 G/DL (3.4-5.0) L Globulin 4.9 g/dL Albumin/Globulin Ratio 0.2 (1.0-2.7) L Free Thyroxine 1.26 NG/DL (0.76-1.46) Free Triiodothyronine 0.7 pg/mL (2.3-4.2) L Random Vancomycin Level 22.6 ug/mL Plan Problems: (1) Cellulitis Assessment & Plan: Pt presented on admission with large mass which encircles,R side of neck, R ear and posterior aspect of neck (L)7.9cm x (W)18.5cm . R earlobe is swollen and erythematous. An area distal to R ear and second area posterior to R ear both oozing large amt of Haemopurulent exudate. Pt screams in pain when affected area minimally palpated but when not touched does not complain of pain. Pt reluctantly responds to queries about etiology and and onset of neck swelling and could not confirm being bitten by insects or any trauma. Area cleansed with Betadine and covered with Pressure drsg. Tx.plan: Apply 4x4 gauze with ABD Pads and secure with paper tape. Change prn saturation and daily ENT Evaluation necessary as this is too extensive head and neck and ear process for general surgery will assist with local wound care but intervention would need ENT assistance seen by ENT recommended for oral abx and local topical abx with wound care complex and seemingly worsening discussed with team and RN recommend transfer to higher level of care. patient is complex with extensive ENT disease process that would benefit from tertiary center care. thank you (2) Sepsis Assessment & Plan: Leukocytosis abnormal labs extensive cellulitis of the face and middle and ear IV antibiotics per infectious disease We will provide local wound care with Betadine prep and gauze covering Xeroform okay for now Will await ENT evaluation - needs higher level of care initiate transfer The dominant abnormality is in the right periauricular region. The external auditory canal appears completely obliterated by severe mucosal thickening. Small amount of fluid identified in the middle ear cavity. There is extensive soft tissue edema and swelling noted in the right periauricular region including the postauricular space. There is a small amount of fluid noted in the right mastoid air cells. No cortical erosion or disruption demonstrated. Right scutum remains sharp. Right auditory ossicles shows normal configuration. The right internal auditory canal is also not involved. The left temporal bones appear intact. There is no fracture, bony lesions or erosions. Mastoid air cells are normally pneumatized and aerated. External auditory canal appears patent bilaterally. Middle ear cavities also unremarkable without fluid or soft tissue densities. The scutum are sharp bilaterally. Epitympanum appears normal. Visualized auditory ossicles appear normal in configuration. Inner ear structures including the cochlea, vestibule and semicircular canals are unremarkable. Left IAC appears unremarkable. There is no abnormality of the vestibular aqueduct demonstrated. IMPRESSION: EXTENSIVE SWELLING AND EDEMA REPRESENTING SOFT TISSUE INFECTION INVOLVING THE EXTERNAL AUDITORY CANAL WELL THE PERIAURICULAR SOFT TISSUE AND DEEP SPACES OF THE POSTERIOR UPPER NECK NOTED ON CT NECK. SMALL AMOUNT OF FLUID IN THE RIGHT MIDDLE EAR AND ALSO SMALL AMOUNT OF FLUID IN THE RIGHT MASTOID AIR CELLS. NO BONY DESTRUCTION OF THE TEMPORAL TEMPORAL BONES, AUDITORY OSSICLES OR INNER EAR STRUCTURES DEMONSTRATED. Dwayne Ralph Dec 15, 2019 20:26
--- NOTE | 2019-12-15 22:00 | NUR ---
NURSE NOTES: Pt's resting in bed, in no acute distress. VS stable. Will continue to monitor.
[2019-12-16] VITALS (24 sets, daily range): BP systolic 100–143; BP diastolic 55–78
--- NOTE | 2019-12-16 | NUR ---
NURSE NOTES: Pt's observed in bed, with eyes closed. VS stable. SR on monitor. Will continue to monitor.
[2019-12-16] MEDS: Morphine Sulfate 2mg/ml Inj(IV/IM USE ONLY) IVP PRN (02:59)
--- NOTE | 2019-12-16 04:00 | NUR ---
NURSE NOTES: Pt c/o right neck wound pain, pain medication given PRN as ordered. No SEs noted. VS stable. Will continue to monitor.
[2019-12-16 05:23] LABS: HEMATOCRIT 24.6 % (42.0-52.0); HEMOGLOBIN 8.2 G/DL (14.2-18.0); MEAN CORPUSCULAR VOLUME 91 FL (80-99); PLATELET COUNT 541 K/UL (150-450); RED BLOOD COUNT 2.71 M/UL (4.70-6.10); RED CELL DISTRIBUTION WIDTH 13.4 % (11.6-14.8)
[2019-12-16] MEDS: dilTIAZem HCl 60mg tab ORAL SCH ×4 (05:50→17:32)
[2019-12-16] MEDS: metroNIDAZOLE 500mg tab ORAL SCH ×3 (05:50→21:49)
[2019-12-16] MEDS: NovoLOG Insulin Flexpen SUBQ SCH ×6 (05:56→21:37)
[2019-12-16 05:59] LABS: ALANINE AMINOTRANSFERASE 6 U/L (12-78); ALBUMIN/GLOBULIN RATIO 0.2 (1.0-2.7); ALKALINE PHOSPHATASE 127 U/L (46-116); ANION GAP 14 mmol/L (5-15); ASPARTATE AMINO TRANSFERASE 16 U/L (15-37); BILIRUBIN,TOTAL 0.3 MG/DL (0.2-1.0); BLOOD UREA NITROGEN 103 mg/dL (7-18); CALCIUM 7.3 MG/DL (8.5-10.1); CARBON DIOXIDE 19 MMOL/L (21-32); CHLORIDE 106 MMOL/L (98-107); CREATININE 4.2 MG/DL (0.55-1.30); GAMMA GLUTAMYL TRANSPEPTIDASE 22 U/L (5-85); PHOSPHORUS 4.6 MG/DL (2.5-4.9); POTASSIUM 3.1 MMOL/L (3.5-5.1); SODIUM 139 MMOL/L (136-145)
--- NOTE | 2019-12-16 06:00 | NUR ---
NURSE NOTES: Pt's observed in bed, eyes closed. No s/s of pain at this time. Will continue to monitor.
--- NOTE | 2019-12-16 07:12 | NUR ---
HAND-OFF: Report given to BERNARDINO Dunbar.
--- NOTE | 2019-12-16 07:15 | NUR ---
NURSE NOTES: Received report from BERNARDINO Faye. The patient is resting on the bed without acute distress or shortness of breath. The patient is confused but able to make needs known via verbal communication. The patient's heart rhythm is SR on the panel monitor but has history of A-fib with RVR. The patient is on 2L NC as ordered. The patient can tolerate whole pill. Skin issue including right neck and ear cellulitis checked and dressing intact. The patient has IV on L AC 20G and R hand 22G that is intact and patent and running NS @100mL/hr as ordered. Per BERNARDINO Faye, the patient cannot be transferred to [facility] due to insurance issue. The patient's bed in the lowest position, call light in reach, and fall and aspiration precaution reinforced. IV site intact and patent. Will follow up the order and lab. Will closely monitor the patient. Will continue plan of care.
[2019-12-16] MEDS: ceFAZolin sod 1 GM in D5W 55 ML IVPB SCH ×2 (08:42→21:35)
[2019-12-16] MEDS: ARIPiprazole 10mg tab ORAL SCH (08:42)
[2019-12-16] MEDS: Depakote 500mg tab ORAL SCH (08:43)
[2019-12-16] MEDS: Docusate 100mg cap ORAL SCH ×3 (08:43→17:32)
[2019-12-16] MEDS: Tamsulosin 0.4mg cap ORAL SCH ×2 (08:43→17:32)
[2019-12-16] MEDS: Heparin 5000 units/ml inj SUBQ SCH ×2 (08:43→21:38)
[2019-12-16] MEDS: Dakin's 0.25% (Half Strength) 16oz TOPIC SCH (08:44)
[2019-12-16] MEDS: Levemir Flexpen SUBQ SCH ×2 (08:56→17:33)
--- NOTE | 2019-12-16 09:00 | NUR ---
NURSE NOTES: Morning medications administered as ordered. Heparin on hold due to hemoglobin level and mild bleeding noted on the site of cellulitis. BS of 145 noted and Levemir administered as ordered. Will closely monitor the patient. Will continue plan of care.
--- NOTE | 2019-12-16 09:00 | NUR ---
RD ASSESSMENT & RECOMMENDATIONS SEE CARE ACTIVITY FOR COMPLETE ASSESSMENT DAILY ESTIMATED NEEDS: Needs based on Sepsis, DM, wound 64kg abw 25-30 kcals/kg 3350-2716 total kcals 1.25-2 g protein/kg 80-128 g total protein 25-30 mL/kg 5582-4304 total fluid mLs NUTRITION DIAGNOSIS: Altered nutrition related lab values R/T diabetes, sepsis AEB A1C 8.7, BG on adm 698, WBC 44*. CURRENT DIET: CCHO MED ms chopped PO DIET RECOMMENDATIONS: CCHO LOW + DOUBLE PROTEIN PORTIONS (texture as tolerated) ADDITIONAL RECOMMENDATIONS: 1) Obtain accurate Wt and HT 2) FINANCIAL DATA ANALYST eval for texture or texture as tolerated 3) Add GLUCERNA BID in b/w meals w/ continued fair po intake 4) Add ARIEL BID for skin integrity 5) Monitor for hypoglycemia w/ fair po intake
--- NOTE | 2019-12-16 09:45 | NUR ---
Social Work Chart reviewed. This SW spoke with patients mother, Zuleika Bolton ([phone]) who is aware [place] [facility] [place] lives with his mother. Mother reports patient was independent, using her cane. Mother stating she would like patient to have a walker upon discharge. This SW explained to mother that [facility] will need to make arrangements for a walker, as needed. Mother explained patient has not been taking his insulin, stating "he doesn't like it." This SW stressed the importance of making sure patient is taking his insulin. Mother provides transportation to all of his appointments, while patient has been having regular outpatient visits for Psychiatry at the following clinic (every two/three months. Mother reports patient has not had any mental health concerns (and patient does not use any substances, drugs or alcohol, does not smoke). [address] [phone] Mother expressed she was worried about patient, while this SW provided emotional support to mother. Mother explains she has been discussing medical progress and plan with the MD and nursing staff in the ICU here as well. Addendum: 12/16/19 at 0957 by JANESSA RAMIREZ Correction: patient goes to [facility]. Mother was unable to recall name of his MD there.
--- NOTE | 2019-12-16 10:00 | NUR ---
NURSE NOTES: New IV inserted on L hand 22G that is intact and patent. Will continue plan of care.
--- NOTE | 2019-12-16 10:28 | NUR ---
CASE MANAGEMENT: REVIEW 12/16/19 SI; NECROTIZING INFECTION OTITIS EXTERNA/ MEDIA / MASTOIDITIS WITH EXTENSIVE DEEP SPACE OF NECK RENU . OBESITY . DM II 98.5 84 17 131/65 96% ON 4L O2 WBC 44.0 H/H 8.2/24.6 PLT 541 K+3.1 BUN 103 CREAT 4.2 BG 152 URIC ACID 10.2 CA+ 7.3 BG 152 ALKP 127 C-REC PROT- 26.4 BNP 4063 ALB 1.0 IS: IV KCL X2 BAGS IV NS @100ML/HR IV LEVAQUIN QOD IV FLAGYL TID IV ANCEF BID CARDIZEM PO Q6HR ALLOPURINOL PO QD DEPAKOTE PO QD LEVEMIR SQ BID DAKIN 1/2 TP QD IV MORPHINE SULFATE Q4HR/PRN \: ICU DCP: HOME Assessment/Plan: MONITOR WBC POSSIBLE TRANSFER [facility]: ENT REVIEWED AND STATED NO SURGERY UPDATED CLINICALS SENT TO [facility] FOR REVIEW BY INTERNAL MEDICINE FAX: [phone]
--- NOTE | 2019-12-16 11:00 | Nephrology Progress Note ---
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 Normal creatinine rising to 4.2. Has a Morgan catheter. Medication list reviewed. Discussed with brim plater. Heart rate 89. Diet changed to renal/medium CHO. Stat kidney ultrasound ordered. December 14: Patient in ICU for management of atrial fibrillation with fast ventricular rate. On Cardizem drip. Lab reviewed. Serum creatinine yaw to 3.8. Vancomycin level is 22. Medications reviewed. Will ask for a Morgan catheter. Continue to monitor renal parameters and intake and output. Etiology of acute renal failure multifactorial could be due to medication, sepsis, underlying severe hypoalbuminemia, may be intrinsic kidney disease. If no further improvement in renal function , patient may require dialysis treatment. Will discuss with PMD. Start allopurinol Normal saline IV Albumin bolus Monitor renal parameters and electrolytes Keep the blood sugar and blood pressure in check Urine studies Per orders Subjective ROS Limited/Unobtainable: No Constitutional: Reports: malaise, weakness Objective Objective Last 24 Hour Vital Signs Date Time Temp Pulse Resp B/P (MAP) Pulse Ox O2 Delivery O2 Flow Rate FiO2 12/16/19 10:00 89 19 127/69 (88) 98 12/16/19 09:00 89 17 124/74 (91) 98 12/16/19 08:00 85 12/16/19 08:00 Nasal Cannula 2.0 12/16/19 08:00 98.5 84 17 131/65 (87) 96 12/16/19 07:00 98 Nasal Cannula 4.0 36 12/16/19 07:00 90 20 127/78 (94) 99 12/16/19 06:00 87 20 129/69 (89) 98 12/16/19 05:50 87 123/69 12/16/19 05:00 87 20 114/69 (84) 98 12/16/19 04:00 81 14 119/64 (82) 98 12/16/19 04:00 88 12/16/19 04:00 Nasal Cannula 2.0 12/16/19 03:00 87 21 118/67 (84) 98 12/16/19 02:00 84 17 107/61 (76) 98 12/16/19 01:00 88 24 121/65 (83) 97 12/16/19 00:00 83 18 100/67 (78) 97 12/16/19 00:00 85 12/16/19 00:00 82 97/63 12/16/19 00:00 Nasal Cannula 2.0 12/15/19 23:00 83 17 104/63 (77) 96 12/15/19 22:00 84 17 102/58 (73) 97 12/15/19 21:00 Nasal Cannula 2.0 12/15/19 21:00 85 18 104/61 (75) 96 12/15/19 20:00 83 12/15/19 20:00 86 18 104/62 (76) 97 12/15/19 20:00 Nasal Cannula 2.0 12/15/19 19:34 98 Nasal Cannula 4.0 36 12/15/19 19:00 98.4 89 20 106/68 (81) 97 12/15/19 18:00 86 21 119/67 (84) 98 12/15/19 17:08 97 114/68 12/15/19 17:00 89 21 122/67 (85) 97 12/15/19 16:00 Nasal Cannula 2.0 12/15/19 16:00 98.4 88 19 124/73 (90) 98 12/15/19 16:00 89 12/15/19 15:00 96 26 127/70 (89) 97 12/15/19 14:00 97 27 114/68 (83) 98 12/15/19 13:00 94 29 118/69 (85) 96 12/15/19 12:47 96 109/64 12/15/19 12:00 94 12/15/19 12:00 98.5 96 20 114/67 (83) 97 12/15/19 12:00 Nasal Cannula 2.0 12/15/19 11:30 95 29 108/77 (87) 97 12/15/19 11:00 96 33 104/61 (75) 96 Intake and Output 12/15/19 12/16/19 19:00 07:00 Intake Total 977.5 ml 1625 ml Output Total 1300 ml 660 ml Balance -322.5 ml 965 ml Intake Oral 220 ml IV Total 977.5 ml 1405 ml Output Urine Total 1300 ml 660 ml # Bowel Movements 2 Current Medications Medications (Trade) Dose Ordered Sig/Rianna Route PRN Reason Start Time Stop Time Status Last Admin Dose Admin Acetaminophen (Tylenol) 650 mg Q4H PRN ORAL fever 12/14/19 22:00 01/11/20 17:59 Albuterol/ Ipratropium (Albuterol/ Ipratropium) 3 ml Q4H PRN HHN Shortness of Breath 12/14/19 22:00 12/17/19 17:59 Allopurinol (allopurinoL) 300 mg DAILY ORAL 12/15/19 09:00 01/14/20 08:59 12/16/19 08:43 Aripiprazole (Abilify) 10 mg DAILY ORAL 12/15/19 09:00 01/27/20 08:59 12/16/19 08:42 Cefazolin Sodium 1 gm/Dextrose 55 ml @ 110 mls/hr Q12HR IVPB 12/15/19 13:30 12/22/19 13:29 12/16/19 08:42 Dextrose (Dextrose 50%) 25 ml Q30M PRN IV Hypoglycemia 12/14/19 21:30 03/11/20 19:29 Dextrose (Dextrose 50%) 50 ml Q30M PRN IV Hypoglycemia 12/14/19 21:30 03/11/20 19:29 Diltiazem HCl (Cardizem) 60 mg EVERY 6 HOURS ORAL 12/15/19 12:45 01/14/20 12:44 12/16/19 05:50 Divalproex Sodium (Depakote) 500 mg DAILY ORAL 12/15/19 09:00 01/12/20 08:59 12/16/19 08:43 Docusate Sodium (Colace) 100 mg THREE TIMES A DAY ORAL 12/15/19 09:00 01/12/20 17:59 12/16/19 08:43 Heparin Sodium (Porcine) (Heparin 5000 units/ml) 5,000 units EVERY 12 HOURS SUBQ 12/15/19 09:00 01/26/20 20:59 12/15/19 20:44 Insulin Aspart (NovoLOG) BEFORE MEALS AND HS SUBQ 12/15/19 06:30 03/11/20 20:59 12/15/19 20:43 Insulin Aspart (NovoLOG) 4 units NOVOTIAC SUBQ 12/16/19 11:50 03/15/20 11:49 Insulin Detemir (Levemir) 10 units BID SUBQ 12/15/19 09:00 03/13/20 10:29 12/16/19 08:56 Levofloxacin 150 ml @ 100 mls/hr EVERY OTHER DAY IVPB 12/15/19 22:00 12/22/19 21:59 12/15/19 21:11 Metronidazole (Flagyl) 500 mg Q8HR ORAL 12/14/19 22:00 12/20/19 08:44 12/16/19 05:50 Morphine Sulfate (Morphine Sulfate) 1 mg Q4HR PRN IVP For Pain 12/15/19 14:45 12/22/19 14:44 12/16/19 02:59 Nitroglycerin (Ntg) 0.4 mg Q5M PRN SL Prn Chest Pain 12/14/19 21:15 01/11/20 19:29 Ondansetron HCl (Zofran) 4 mg Q6H PRN IVP Nausea & Vomiting 12/15/19 00:00 01/11/20 17:59 Pantoprazole (Protonix) 40 mg EVERY 12 HOURS ORAL 12/15/19 09:00 01/12/20 14:14 12/16/19 08:43 Polyethylene Glycol (Miralax) 17 gm DAILYPRN PRN ORAL Constipation 12/15/19 18:00 01/11/20 17:59 Potassium Chloride 100 ml @ 100 mls/hr Q1H IVPB 12/16/19 10:00 12/16/19 11:59 12/16/19 10:11 Sodium Hypochlorite (Dakin's Half Strength) 1 applic DAILY TOPIC 12/15/19 09:00 01/13/20 07:59 12/16/19 08:44 Sodium Chloride 1,000 ml @ 100 mls/hr Q10H IV 12/14/19 21:15 01/12/20 14:12 12/16/19 03:56 Tamsulosin HCl (Flomax) 0.4 mg BID ORAL 12/15/19 09:00 01/11/20 20:59 12/16/19 08:43 Temazepam (Restoril) 15 mg HSPRN PRN ORAL Insomnia 12/15/19 18:00 12/19/19 17:59 Laboratory Tests 12/15/19 10:56: POC Whole Blood Glucose [Pending] 12/15/19 17:42: POC Whole Blood Glucose 201H 12/16/19 04:15: White Blood Count 44.0*H, Red Blood Count 2.71L, Hemoglobin 8.2L, Hematocrit 24.6L, Mean Corpuscular Volume 91, Mean Corpuscular Hemoglobin 30.2, Mean Corpuscular Hemoglobin Concent 33.2, Red Cell Distribution Width 13.4, Platelet Count 541H, Mean Platelet Volume 8.8, Neutrophils (%) (Auto) , Lymphocytes (%) ( Auto) , Monocytes (%) (Auto) , Eosinophils (%) (Auto) , Basophils (%) (Auto) , Differential Total Cells Counted 100, Neutrophils % (Manual) 85H, Lymphocytes % (Manual) 3L, Monocytes % (Manual) 2, Eosinophils % (Manual) 5H, Basophils % ( Manual) 0, Myelocytes % 2H, Band Neutrophils 3, Platelet Estimate IncreasedH, Platelet Morphology Normal, Hypochromasia 1+, Sodium Level 139, Potassium Level 3.1L, Chloride Level 106, Carbon Dioxide Level 19L, Anion Gap 14, Blood Urea Nitrogen 103H, Creatinine 4.2H, Estimat Glomerular Filtration Rate 15.0, Glucose Level 152#H, Uric Acid 10.2H, Calcium Level 7.3L, Phosphorus Level 4.6, Magnesium Level 2.2, Total Bilirubin 0.3, Gamma Glutamyl Transpeptidase 22, Aspartate Amino Transf (AST/SGOT) 16, Alanine Aminotransferase (ALT/SGPT) 6L, Alkaline Phosphatase 127H, C-Reactive Protein, Quantitative 26.4H, Pro-B-Type Natriuretic Peptide 4063H, Total Protein 6.0L, Albumin 1.0L, Globulin 5.0, Albumin/Globulin Ratio 0.2L Height (Feet): 5 Height (Inches): 4.00 Weight (Pounds): 174 General Appearance: mild distress Cardiovascular: tachycardia Respiratory/Chest: decreased breath sounds Abdomen: distended Objective No change Harsh Ma MD Dec 16, 2019 11:00
--- NOTE | 2019-12-16 11:15 | Pulmonolgy Critical Care Note ---
Critical Care - Asmt/Plan Problems: (1) Sepsis (2) Acute renal failure (3) Persistent bacteremia (4) Malignant otitis externa of right ear (5) Atrial fibrillation, rapid (6) Psychosis (7) Diabetes mellitus Respiratory: monitor respiratory rate, adjust FIO2, CXR Cardiac: continue to monitor HR/BP Renal: F/U I&O, keep IV fluid Infectious Disease: check cultures, continue antibiotics Gastrointestinal: continue feedings/current rate, abdominal imaging Endocrine: monitor blood sugar, continue sliding scale insulin Hematologic: monitor H/H Neurologic: PRN Ativan Affect: PRN ativan Prophylaxis: Heparin Notes Reviewed: cardio, renal Discussed with: nurses, consultants, corrections caseworkerfinance insurance manager - Objective Last 24 Hour Vital Signs Date Time Temp Pulse Resp B/P (MAP) Pulse Ox O2 Delivery O2 Flow Rate FiO2 12/16/19 10:00 89 19 127/69 (88) 98 12/16/19 09:00 89 17 124/74 (91) 98 12/16/19 08:00 85 12/16/19 08:00 Nasal Cannula 2.0 12/16/19 08:00 98.5 84 17 131/65 (87) 96 12/16/19 07:00 98 Nasal Cannula 4.0 36 12/16/19 07:00 90 20 127/78 (94) 99 12/16/19 06:00 87 20 129/69 (89) 98 12/16/19 05:50 87 123/69 12/16/19 05:00 87 20 114/69 (84) 98 12/16/19 04:00 81 14 119/64 (82) 98 12/16/19 04:00 88 12/16/19 04:00 Nasal Cannula 2.0 12/16/19 03:00 87 21 118/67 (84) 98 12/16/19 02:00 84 17 107/61 (76) 98 12/16/19 01:00 88 24 121/65 (83) 97 12/16/19 00:00 83 18 100/67 (78) 97 12/16/19 00:00 85 12/16/19 00:00 82 97/63 12/16/19 00:00 Nasal Cannula 2.0 12/15/19 23:00 83 17 104/63 (77) 96 12/15/19 22:00 84 17 102/58 (73) 97 12/15/19 21:00 Nasal Cannula 2.0 12/15/19 21:00 85 18 104/61 (75) 96 12/15/19 20:00 83 12/15/19 20:00 86 18 104/62 (76) 97 12/15/19 20:00 Nasal Cannula 2.0 12/15/19 19:34 98 Nasal Cannula 4.0 36 12/15/19 19:00 98.4 89 20 106/68 (81) 97 12/15/19 18:00 86 21 119/67 (84) 98 12/15/19 17:08 97 114/68 12/15/19 17:00 89 21 122/67 (85) 97 12/15/19 16:00 Nasal Cannula 2.0 12/15/19 16:00 98.4 88 19 124/73 (90) 98 12/15/19 16:00 89 12/15/19 15:00 96 26 127/70 (89) 97 12/15/19 14:00 97 27 114/68 (83) 98 12/15/19 13:00 94 29 118/69 (85) 96 12/15/19 12:47 96 109/64 12/15/19 12:00 94 12/15/19 12:00 98.5 96 20 114/67 (83) 97 12/15/19 12:00 Nasal Cannula 2.0 12/15/19 11:30 95 29 108/77 (87) 97 Status: awake Condition: critical HEENT: atraumatic Neck: full ROM Lungs: clear, chest wall tender Abdomen: soft Extremities: no C/C/E Micro: Microbiology Date/Time Source Procedure Growth Status 12/15/19 16:34 Nasopharynx SARS-CoV-2 RdRp Gene Assay - Final Complete 12/13/19 13:50 Nasopharynx Coronavirus COVID-19 PCR ([facility]) - Final Complete 12/14/19 00:00 Ear Right Gram Stain - Final Resulted 12/14/19 00:00 Aerobic Culture - Preliminary Staphylococcus Aureus Resulted 12/14/19 00:00 Ear Right Anaerobic Culture Pending Resulted Accucheck: 145 Critical Care - Subjective ROS Limited/Unobtainable: Yes Interval Events: heart rate controlled, Sinus now Condition: critical FI02: 36 Fluids: NS 100 cc/hour I&O: Intake and Output 12/15/19 12/16/19 19:00 07:00 Intake Total 977.5 ml 1625 ml Output Total 1300 ml 660 ml Balance -322.5 ml 965 ml Intake Oral 220 ml IV Total 977.5 ml 1405 ml Output Urine Total 1300 ml 660 ml # Bowel Movements 2 Labs: Laboratory Tests Test 12/15/19 17:42 12/16/19 04:15 POC Whole Blood Glucose 201 MG/DL (74-106) H White Blood Count 44.0 K/UL (4.8-10.8) *H Red Blood Count 2.71 M/UL (4.70-6.10) L Hemoglobin 8.2 G/DL (14.2-18.0) L Hematocrit 24.6 % (42.0-52.0) L Mean Corpuscular Volume 91 FL (80-99) Mean Corpuscular Hemoglobin 30.2 PG (27.0-31.0) Mean Corpuscular Hemoglobin Concent 33.2 G/DL (32.0-36.0) Red Cell Distribution Width 13.4 % (11.6-14.8) Platelet Count 541 K/UL (150-450) H Mean Platelet Volume 8.8 FL (6.5-10.1) Neutrophils (%) (Auto) % (45.0-75.0) Lymphocytes (%) (Auto) % (20.0-45.0) Monocytes (%) (Auto) % (1.0-10.0) Eosinophils (%) (Auto) % (0.0-3.0) Basophils (%) (Auto) % (0.0-2.0) Differential Total Cells Counted 100 Neutrophils % (Manual) 85 % (45-75) H Lymphocytes % (Manual) 3 % (20-45) L Monocytes % (Manual) 2 % (1-10) Eosinophils % (Manual) 5 % (0-3) H Basophils % (Manual) 0 % (0-2) Myelocytes % 2 % (0-0) H Band Neutrophils 3 % (0-8) Platelet Estimate Increased H Platelet Morphology Normal Hypochromasia 1+ Sodium Level 139 MMOL/L (136-145) Potassium Level 3.1 MMOL/L (3.5-5.1) L Chloride Level 106 MMOL/L (98-107) Carbon Dioxide Level 19 MMOL/L (21-32) L Anion Gap 14 mmol/L (5-15) Blood Urea Nitrogen 103 mg/dL (7-18) H Creatinine 4.2 MG/DL (0.55-1.30) H Estimat Glomerular Filtration Rate 15.0 mL/min (>60) Glucose Level 152 MG/DL (74-106) #H Uric Acid 10.2 MG/DL (2.6-7.2) H Calcium Level 7.3 MG/DL (8.5-10.1) L Phosphorus Level 4.6 MG/DL (2.5-4.9) Magnesium Level 2.2 MG/DL (1.8-2.4) Total Bilirubin 0.3 MG/DL (0.2-1.0) Gamma Glutamyl Transpeptidase 22 U/L (5-85) Aspartate Amino Transf (AST/SGOT) 16 U/L (15-37) Alanine Aminotransferase (ALT/SGPT) 6 U/L (12-78) L Alkaline Phosphatase 127 U/L (46-116) H C-Reactive Protein, Quantitative 26.4 mg/dL (0.00-0.90) H Pro-B-Type Natriuretic Peptide 4063 pg/mL (0-125) H Total Protein 6.0 G/DL (6.4-8.2) L Albumin 1.0 G/DL (3.4-5.0) L Globulin 5.0 g/dL Albumin/Globulin Ratio 0.2 (1.0-2.7) L Liliana Borja MD Dec 16, 2019 11:14
--- NOTE | 2019-12-16 11:30 | NUR ---
NURSE NOTES: Dr. Borja at the bedside assessed the patient. Dr. Borja ordered to lower NS rate from 100mL/hr to 50mL/hr. Will adjust as ordered. Will continue plan of care.
[2019-12-16 11:32] LABS: LACTATE DEHYDROGENASE 303 U/L (81-234)
--- NOTE | 2019-12-16 11:52 | Diagnostic Imaging Report ---
Indication: Abnormal renal function tests Technique: Grayscale and duplex images of the kidneys, retroperitoneum, and bladder were obtained. Comparison: none Findings: Right kidney measures 10.6 cm in length. Left kidney measures 11.9 cm in length. Both kidneys demonstrate normal echogenicity. No hydronephrosis. No focal abnormality. Normal inferior vena cava. Bladder is empty, contains a Morgan catheter. The bladder wall is markedly thickened. Gas is seen within the anterior bladder, apparently within the wall but probably trapped within mucosal folds. Impression: Negative for hydronephrosis Bladder wall thickening. Gas apparently within the bladder wall but more likely trapped within mucosal folds. Most likely related to the Morgan catheterization. However, the possibility of emphysematous cystitis should also be considered..
--- NOTE | 2019-12-16 12:00 | NUR ---
NURSE NOTES: BS of 178 noted. Administered Novolog as ordered. Will closely monitor the patient. Will continue plan of care.
--- NOTE | 2019-12-16 12:16 | NUR ---
TRANSFER UPDATE SPOKE TO DC FROM TRANSFER CENTER [facility]: [phone] FAXED DOCTORS PROGRESS NOTE NOT YET RECEIVED INTERNAL MEDICINE FROM [facility] TO REVIEW PROGRESS NOTE FROM [facility]EEK[facility] MARIAN TO CALL BACK WITH RESULTS OF MD DECISION Addendum: 12/16/19 at 1312 by SUMIT CUMMINGS LVN CM CALLED FOR UPDATE ON TRANSFER CM SPOKE WITH MARIAN: FAXED RECEIVED; MARIAN TO GIVE TO INTERNAL MEDICAL DOCTOR FOR REVIEW Addendum: 12/16/19 at 1426 by ZOHRA VIRK LVN LVN F/U CALL PLACED TO [facility] REGARDING TRANSFER AND WAS ONLY ABLE TO LEAVE A VOICEMAIL MESSAGE REQUESTING A RETURN CALL REGARDING TRANSFER
[2019-12-16 12:34] LABS: % IRON SATURATION 54 % (15-50); IRON 21 ug/dL (50-175); TOTAL IRON BINDING CAPACITY 39 ug/dL (250-450)
--- NOTE | 2019-12-16 13:00 | NUR ---
NURSE NOTES: Consumed 30% of the lunch. Tolerated well. Will closely monitor the patient. Will continue plan of care.
--- NOTE | 2019-12-16 14:29 | NUR ---
TRANSFER UPDATED CALLED [facility] @ [phone] AND SPOKE WITH MARIAN. PER MARIAN THEY ARE WORKING ON A BED AND WILL CALL US BACK SOON ONE HAS BEEN SECURED
--- NOTE | 2019-12-16 14:30 | NUR ---
NURSE NOTES: The patient is resting on the bed without acute distress or shortness of breath. Awaiting bed to be transferred to [facility] for further management. Will closely monitor the patient. Will continue plan of care.
--- NOTE | 2019-12-16 15:40 | Surgery Progress Note ---
Surgery Progress Note Subjective Additional Comments on exam right neck and facial cellulitis still significant and if note worse drainage purulent persistent leukocytosis but slowly trending down esr / crp noted discussed with Dr. Wilkerson at [facility]. transfer accepted for higher level of care. once improved okay for transfer back remainder of care Objective Last 24 Hour Vital Signs Date Time Temp Pulse Resp B/P (MAP) Pulse Ox O2 Delivery O2 Flow Rate FiO2 12/16/19 15:00 109 22 143/63 (89) 98 12/16/19 14:00 81 15 115/60 (78) 96 12/16/19 13:00 87 20 126/64 (84) 97 12/16/19 12:00 98.1 85 17 128/63 (84) 97 12/16/19 12:00 91 12/16/19 12:00 Nasal Cannula 2.0 12/16/19 11:25 86 121/71 12/16/19 11:00 89 18 121/61 (81) 98 12/16/19 10:00 89 19 127/69 (88) 98 12/16/19 09:00 89 17 124/74 (91) 98 12/16/19 08:00 85 12/16/19 08:00 Nasal Cannula 2.0 12/16/19 08:00 98.5 84 17 131/65 (87) 96 12/16/19 07:00 98 Nasal Cannula 4.0 36 12/16/19 07:00 90 20 127/78 (94) 99 12/16/19 06:00 87 20 129/69 (89) 98 12/16/19 05:50 87 123/69 12/16/19 05:00 87 20 114/69 (84) 98 12/16/19 04:00 81 14 119/64 (82) 98 12/16/19 04:00 88 12/16/19 04:00 Nasal Cannula 2.0 12/16/19 03:00 87 21 118/67 (84) 98 12/16/19 02:00 84 17 107/61 (76) 98 12/16/19 01:00 88 24 121/65 (83) 97 12/16/19 00:00 83 18 100/67 (78) 97 12/16/19 00:00 85 12/16/19 00:00 82 97/63 12/16/19 00:00 Nasal Cannula 2.0 12/15/19 23:00 83 17 104/63 (77) 96 12/15/19 22:00 84 17 102/58 (73) 97 12/15/19 21:00 Nasal Cannula 2.0 12/15/19 21:00 85 18 104/61 (75) 96 12/15/19 20:00 83 12/15/19 20:00 86 18 104/62 (76) 97 12/15/19 20:00 Nasal Cannula 2.0 12/15/19 19:34 98 Nasal Cannula 4.0 36 12/15/19 19:00 98.4 89 20 106/68 (81) 97 12/15/19 18:00 86 21 119/67 (84) 98 12/15/19 17:08 97 114/68 12/15/19 17:00 89 21 122/67 (85) 97 12/15/19 16:00 Nasal Cannula 2.0 12/15/19 16:00 98.4 88 19 124/73 (90) 98 12/15/19 16:00 89 I&O Intake and Output 12/15/19 12/16/19 19:00 07:00 Intake Total 977.5 ml 1625 ml Output Total 1300 ml 660 ml Balance -322.5 ml 965 ml Intake Oral 220 ml IV Total 977.5 ml 1405 ml Output Urine Total 1300 ml 660 ml # Bowel Movements 2 Dressing: saturated Wound: other Drains: other Cardiovascular: RSR Respiratory: decreased breath sounds Abdomen: soft, non-tender, present bowel sounds Extremities: no edema, no tenderness, no cyanosis Laboratory Tests Test 12/15/19 17:42 12/16/19 04:15 12/16/19 08:40 12/16/19 11:35 POC Whole Blood Glucose 201 MG/DL (74-106) H Pending Pending White Blood Count 44.0 K/UL (4.8-10.8) *H Red Blood Count 2.71 M/UL (4.70-6.10) L Hemoglobin 8.2 G/DL (14.2-18.0) L Hematocrit 24.6 % (42.0-52.0) L Mean Corpuscular Volume 91 FL (80-99) Mean Corpuscular Hemoglobin 30.2 PG (27.0-31.0) Mean Corpuscular Hemoglobin Concent 33.2 G/DL (32.0-36.0) Red Cell Distribution Width 13.4 % (11.6-14.8) Platelet Count 541 K/UL (150-450) H Mean Platelet Volume 8.8 FL (6.5-10.1) Neutrophils (%) (Auto) % (45.0-75.0) Lymphocytes (%) (Auto) % (20.0-45.0) Monocytes (%) (Auto) % (1.0-10.0) Eosinophils (%) (Auto) % (0.0-3.0) Basophils (%) (Auto) % (0.0-2.0) Differential Total Cells Counted 100 Neutrophils % (Manual) 85 % (45-75) H Lymphocytes % (Manual) 3 % (20-45) L Monocytes % (Manual) 2 % (1-10) Eosinophils % (Manual) 5 % (0-3) H Basophils % (Manual) 0 % (0-2) Myelocytes % 2 % (0-0) H Band Neutrophils 3 % (0-8) Other Cell Type Pathologist review Platelet Estimate Increased H Platelet Morphology Normal Hypochromasia 1+ Erythrocyte Sedimentation Rate 136 MM/HR (0-20) H Reticulocyte Count 2.4 % (0.5-2.0) H Sodium Level 139 MMOL/L (136-145) Potassium Level 3.1 MMOL/L (3.5-5.1) L Chloride Level 106 MMOL/L (98-107) Carbon Dioxide Level 19 MMOL/L (21-32) L Anion Gap 14 mmol/L (5-15) Blood Urea Nitrogen 103 mg/dL (7-18) H Creatinine 4.2 MG/DL (0.55-1.30) H Estimat Glomerular Filtration Rate 15.0 mL/min (>60) Glucose Level 152 MG/DL (74-106) #H Uric Acid 10.2 MG/DL (2.6-7.2) H Calcium Level 7.3 MG/DL (8.5-10.1) L Phosphorus Level 4.6 MG/DL (2.5-4.9) Magnesium Level 2.2 MG/DL (1.8-2.4) Iron Level 21 ug/dL (50-175) L Total Iron Binding Capacity 39 ug/dL (250-450) L Percent Iron Saturation 54 % (15-50) H Unsaturated Iron Binding 18 ug/dL (112-346) L Total Bilirubin 0.3 MG/DL (0.2-1.0) Gamma Glutamyl Transpeptidase 22 U/L (5-85) Aspartate Amino Transf (AST/SGOT) 16 U/L (15-37) Alanine Aminotransferase (ALT/SGPT) 6 U/L (12-78) L Alkaline Phosphatase 127 U/L (46-116) H Lactate Dehydrogenase 303 U/L (81-234) H C-Reactive Protein, Quantitative 26.4 mg/dL (0.00-0.90) H Pro-B-Type Natriuretic Peptide 4063 pg/mL (0-125) H Total Protein 6.0 G/DL (6.4-8.2) L Albumin 1.0 G/DL (3.4-5.0) L Globulin 5.0 g/dL Albumin/Globulin Ratio 0.2 (1.0-2.7) L Carcinoembryonic Antigen Pending Vitamin B12 Level > 2000 PG/ML (193-986) H Folate 19.6 NG/ML (8.6-58.9) Plan Problems: (1) Cellulitis Assessment & Plan: Pt presented on admission with large mass which encircles,R side of neck, R ear and posterior aspect of neck (L)7.9cm x (W)18.5cm . R earlobe is swollen and erythematous. An area distal to R ear and second area posterior to R ear both oozing large amt of Haemopurulent exudate. Pt screams in pain when affected area minimally palpated but when not touched does not complain of pain. Pt reluctantly responds to queries about etiology and and onset of neck swelling and could not confirm being bitten by insects or any trauma. Area cleansed with Betadine and covered with Pressure drsg. Tx.plan: Apply 4x4 gauze with ABD Pads and secure with paper tape. Change prn saturation and daily ENT Evaluation necessary as this is too extensive head and neck and ear process for general surgery will assist with local wound care but intervention would need ENT assistance seen by ENT recommended for oral abx and local topical abx with wound care complex and seemingly worsening discussed with team and RN recommend transfer to higher level of care. patient is complex with extensive ENT disease process that would benefit from tertiary center care. thank you (2) Sepsis Assessment & Plan: Leukocytosis abnormal labs extensive cellulitis of the face and middle and ear IV antibiotics per infectious disease We will provide local wound care with Betadine prep and gauze covering Xeroform okay for now Will await ENT evaluation - needs higher level of care initiate transfer The dominant abnormality is in the right periauricular region. The external auditory canal appears completely obliterated by severe mucosal thickening. Small amount of fluid identified in the middle ear cavity. There is extensive soft tissue edema and swelling noted in the right periauricular region including the postauricular space. There is a small amount of fluid noted in the right mastoid air cells. No cortical erosion or disruption demonstrated. Right scutum remains sharp. Right auditory ossicles shows normal configuration. The right internal auditory canal is also not involved. The left temporal bones appear intact. There is no fracture, bony lesions or erosions. Mastoid air cells are normally pneumatized and aerated. External auditory canal appears patent bilaterally. Middle ear cavities also unremarkable without fluid or soft tissue densities. The scutum are sharp bilaterally. Epitympanum appears normal. Visualized auditory ossicles appear normal in configuration. Inner ear structures including the cochlea, vestibule and semicircular canals are unremarkable. Left IAC appears unremarkable. There is no abnormality of the vestibular aqueduct demonstrated. IMPRESSION: EXTENSIVE SWELLING AND EDEMA REPRESENTING SOFT TISSUE INFECTION INVOLVING THE EXTERNAL AUDITORY CANAL WELL THE PERIAURICULAR SOFT TISSUE AND DEEP SPACES OF THE POSTERIOR UPPER NECK NOTED ON CT NECK. SMALL AMOUNT OF FLUID IN THE RIGHT MIDDLE EAR AND ALSO SMALL AMOUNT OF FLUID IN THE RIGHT MASTOID AIR CELLS. NO BONY DESTRUCTION OF THE TEMPORAL TEMPORAL BONES, AUDITORY OSSICLES OR INNER EAR STRUCTURES DEMONSTRATED. Dwayne Ralph Dec 16, 2019 15:40
--- NOTE | 2019-12-16 15:45 | Consultation ---
DATE OF CONSULTATION: 12/16/2019 CARDIOLOGY CONSULTATION CONSULTING PHYSICIAN: Danial Wise MD. REFERRING PHYSICIAN: Holger Benjamin MD. REASON FOR CONSULTATION: Atrial fibrillation, rapid ventricular response with heart rate up to 200 beats per minute. HISTORY OF PRESENT ILLNESS: The patient is a 54-year-old gentleman with history of hypertension, diabetes, and history of psychiatric disorder as well as history of hyperosmolar coma in the past, was brought in from nursing facility for right posterior ear discharge over the last two weeks prior to the admission associated with fever and chills. CT scan showed extensive soft tissue inflammation and edema affecting the right face and neck and skull base down to the lower neck. The patient was admitted, was evaluated by ID and Surgery. The patient subsequently developed atrial fibrillation with rapid ventricular response with heart rate up to 200 beats per minute. The patient was then transferred to intensive care unit per my order and was started on Cardizem drip. The patient subsequently converted to sinus rhythm and Cardizem drip was switched p.o. At the time of my evaluation, the patient is still in intensive care unit and is being ruled out for COVID. REVIEW OF SYSTEMS: Negative other than what was mentioned in the history of present illness. PAST MEDICAL HISTORY: As mentioned above. FAMILY HISTORY: Noncontributory. He is a detention resident. MEDICATIONS: Per reconciliation. PHYSICAL EXAMINATION: VITAL SIGNS: Blood pressure 127/69, pulse is 90, respirations 18, and he is afebrile. HEAD AND NECK: Shows no JVD. His right face and ear is inflamed with pus, covered with dressing. LUNGS: Clear. CARDIOVASCULAR: Shows regular S1 and S2 with no gallop. ABDOMEN: Soft. EXTREMITIES: No pitting edema. LABORATORY AND DIAGNOSTIC DATA: Labs show white count of 44,000, hemoglobin 8.2, hematocrit 24.6, and platelets of 541,000. Sodium 139, potassium 3.1, BUN of 103, creatinine 4.2, and glucose of 152. BNP is 4063. His echocardiogram on 12/12/2019 showed ejection fraction of 55%. No evidence of valvular vegetation. ASSESSMENT AND PLAN: 1. Atrial fibrillation, rapid ventricular response with heart rate up 200. The patient has no prior history of atrial fibrillation and was in setting of severe sepsis with white count of 50,000. The patient already converted to sinus rhythm. Continue Cardizem 60 mg every six hours. Hold off on full anticoagulation in view of risk of bleeding at the site of the external otitis and inflammation. If the patient has recurrence of atrial fibrillation, I am going to start the patient on amiodarone. 2. Hypertension. Continue Cardizem. 3. Diabetes, on insulin. 4. Severe right otitis externa, otitis media, and mastoiditis with extension to the deep spaces of the neck with necrotizing infection. The patient was evaluated by General Surgery, awaiting transfer to higher level of care. 5. MSSA bacteremia secondary to above. His blood culture on 12/12/2019 MSSA, and on 12/14/2019 negative. An echocardiogram, no vegetation. 6. Acute renal failure is worsening. Further evaluation by Dr. Ma. 7. Diabetes. 8. Psychosis. Thank you very much for allowing me to participate in the care of this patient. Please do not hesitate to contact me for any questions regarding my evaluation. Case was discussed with the ICU team. Danial Wise M.D. DR: TODD JOB#: [id number] CC:
--- NOTE | 2019-12-16 16:00 | NUR ---
NURSE NOTES: Bed bath given to the patient. Tolerated well. Dressing changed again for the site for cellulitis. Will closely monitor the patient. Will continue plan of care.
--- NOTE | 2019-12-16 16:21 | NUR ---
TRANSFER UPDATED CALLED [facility] @ [phone] AND WAS ONLY ABLE TO LEAVE A MESSAGE CALLED [facility] @ [phone] AND SPOKE WITH MICHAEL RODRIGUEZ, PATIENT HAS BEEN ACCEPTED AND THEY ARE JUST WAITING FOR A BED TO BECOME AVAILABLE PROVIDED MICHAEL WITH PHONE NUMBERS TO ICU WELL DIRECTOR OF CASE MGMT SPOKE WITH ICU NURSE, ALVINA AND DISCUSSED ALL OF THE ABOVE INSTRUCTED ALVINA TO CALL [facility] IF [facility] CALLS WITH A BED
--- NOTE | 2019-12-16 17:00 | NUR ---
NURSE NOTES: Communication made with charge nurse, Wendy. The patient will be transferred to [facility] on 12/17/2019 @ [id number] to 6E room # 6311. Nurse to nurse report to following number: [phone]. [employer] transporter to call following number 30 minutes prior to arrival to the hospital to set up regarding covid: [phone].
--- NOTE | 2019-12-16 17:30 | Consultation ---
DATE OF CONSULTATION: 12/16/2019 ENDOCRINOLOGY CONSULTATION CONSULTING PHYSICIAN: Jamie Ho MD. REFERRING PHYSICIAN: Holger Benjamin M.D. REASON FOR CONSULTATION: Diabetes management. HISTORY OF PRESENT ILLNESS: The patient is a 54-year-old male with history of insulin-dependent diabetes, who presented to the hospital with right posterior ear pain and drainage. The patient presented with neck pain with fever and chills. Glucose is elevated. Therefore, Endocrinology was consulted. PAST MEDICAL HISTORY: 1. Diabetes. 2. Hypertension. 3. Psychiatric issues. 4. Neurological problem. PAST SURGICAL HISTORY: None. FAMILY HISTORY: Noncontributory. LABORATORY VALUES: On presentation, WBC of 55,000, hemoglobin 11, hematocrit 32.8, platelets of 590,000. Hemoglobin A1c of 8.7. Sodium 138, potassium 3.5, chloride 105, bicarbonate 20, BUN 108, creatinine 3.8, glucose of 277. TSH 0.226, free T4 of 1.2 REVIEW OF SYSTEMS: As per HPI. MEDICATIONS: Reviewed and reconciled. PHYSICAL EXAMINATION: VITAL SIGNS: Blood pressure 129/69, heart rate 87, respiratory rate of 20. HEENT: Pupils are reactive to light. Sclerae are anicteric. NECK: No JVD. HEART: Regular. LUNGS: Clear. ABDOMEN: Positive bowel sounds. EXTREMITIES: No clubbing, cyanosis, or edema. DIAGNOSES: 1. Sepsis. 2. Cellulitis. 3. Diabetes, out of control. 4. Abnormal thyroid function test. DISCUSSION: 1. Abnormality of thyroid function is due to the state of illness. 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 2. Continue Levemir 10 units b.i.d. 3. Add NovoLog 4 units before each meal. Continue NovoLog sliding scale. 4. Further adjustment according to blood glucose values. 5. Hypoglycemia protocol has been ordered. Thank you, Dr. Benjamin, for the courtesy of this consultation. Jamie Ho M.D. : BERNARDINO/TANESHA JOB#: [id number] CC: SELENA
--- NOTE | 2019-12-16 18:00 | NUR ---
NURSE NOTES: Consumed 50% of the meal. The patient tolerated well. The patient is stable at this time. Will continue plan of care.
--- NOTE | 2019-12-16 18:07 | Infectious Diseases Prog Note ---
Assessment/Plan Assessment: COVID neg x2 (12/12 NAAT, 12/14 Rapid test) Severe Sepsis Severe R otitis externa, otitis media and mastoiditis w/ extension to deep spaces of neck; necrotizing infection- watch out for Lemerie syndrome -CT IAC: EXTENSIVE SWELLING AND EDEMA REPRESENTING SOFT TISSUE INFECTION INVOLVING THE EXTERNAL AUDITORY CANAL WELL THE PERIAURICULAR SOFT TISSUE AND DEEP SPACES OF THE POSTERIOR UPPER NECK NOTED ON CT NECK. SMALL AMOUNT OF FLUID IN THE RIGHT MIDDLE EAR AND ALSO SMALL AMOUNT OF FLUID IN THE RIGHT MASTOID AIR CELLS. NO BONY DESTRUCTION OF THE TEMPORAL TEMPORAL BONES, AUDITORY OSSICLES OR INNER EAR STRUCTURES DEMONSTRATED. -12/11 CT head wo: No acute intracranial abnormality. Severe soft tissue swelling and inflammation noted in the right external auditory canal, right postauricular region with extension and involvement of the deep soft tissue of the upper neck and skull base region. CT neck: Findings of extensive soft tissue inflammation and edema affecting the right face and neck spanning the skull base down to the lower neck. Given the clinical history of severe otitis externa, this may represent severe soft tissue infection with possible phlegmon/abscess formation particularly in the deep upper neck musculature which is asymmetrically thickened compared to the contralateral left. There is likely confluent adenopathy in the posterior triangle and anterior cervical chain. --ear drainage cx: S. aureus (sensi P)- prelim Persistent MSSA bacteremia-2ry to above -12/11 Bcx 4/4 MSSA; 12/12 Bcx 1/4 -2d Echo: no vegetations seen Low grade fever, SP Hyperleukocytosis, improving -12/11 CXR: no acute disease AFIB with RVR RENU, worsening -Renal US: Negative for hydronephrosis. Bladder wall thickening. Gas apparently within the bladder wall but more likely trapped within mucosal folds. Most likely related to the Morgan catheterization. However, the possibility of emphysematous cystitis should also be considered.. DM2 HTN psychosis Plan: -Cont IV Ancef #2 (abx d #5) for MSSA -Cont Levaquin #2 (abx d #5) for empiric pseudomonal coverage -Cont Flagyl #4 for anaerobic coverage -12/14 SP Cefepime #3, IV Vancomcyin #4 -12/12 SP IV amikacin #1 -12/11 SP Zosyn x1 -f/u cx -Monitor CBC/CMP, temperatures -Needs urgent ENT evaluation- severe infection with extension to deep spaces of neck and severe sepsis; will initiate transfer to higher level as need surgical debridement; has been accepted in [facility]; awaiting bed assignment. -COVID19 neg x2 -f/u culture from ear drainage -Bcx x2 Thank you for consulting [facility]. Will continue to follow along with you. Discussed wit RN Subjective Allergies: Coded Allergies: No Known Allergies (Unverified , 08/03/15) afebrile at 2l NC Cr increasing WBC remains in the 40s waiting transfer to [facility] COVID neg x2 remains bacteremic Objective Last 24 Hour Vital Signs Date Time Temp Pulse Resp B/P (MAP) Pulse Ox O2 Delivery O2 Flow Rate FiO2 12/16/19 17:32 88 132/63 12/16/19 17:00 88 17 132/63 (86) 99 12/16/19 16:00 Nasal Cannula 2.0 12/16/19 16:00 88 12/16/19 16:00 98.3 84 19 113/59 (77) 98 12/16/19 15:00 109 22 143/63 (89) 98 12/16/19 14:00 81 15 115/60 (78) 96 12/16/19 13:00 87 20 126/64 (84) 97 12/16/19 12:00 98.1 85 17 128/63 (84) 97 12/16/19 12:00 91 12/16/19 12:00 Nasal Cannula 2.0 12/16/19 11:25 86 121/71 12/16/19 11:00 89 18 121/61 (81) 98 12/16/19 10:00 89 19 127/69 (88) 98 12/16/19 09:00 89 17 124/74 (91) 98 12/16/19 08:00 85 12/16/19 08:00 Nasal Cannula 2.0 12/16/19 08:00 98.5 84 17 131/65 (87) 96 12/16/19 07:00 98 Nasal Cannula 4.0 36 12/16/19 07:00 90 20 127/78 (94) 99 12/16/19 06:00 87 20 129/69 (89) 98 12/16/19 05:50 87 123/69 12/16/19 05:00 87 20 114/69 (84) 98 12/16/19 04:00 81 14 119/64 (82) 98 12/16/19 04:00 88 12/16/19 04:00 Nasal Cannula 2.0 12/16/19 03:00 87 21 118/67 (84) 98 12/16/19 02:00 84 17 107/61 (76) 98 12/16/19 01:00 88 24 121/65 (83) 97 12/16/19 00:00 83 18 100/67 (78) 97 12/16/19 00:00 85 12/16/19 00:00 82 97/63 12/16/19 00:00 Nasal Cannula 2.0 12/15/19 23:00 83 17 104/63 (77) 96 12/15/19 22:00 84 17 102/58 (73) 97 12/15/19 21:00 Nasal Cannula 2.0 12/15/19 21:00 85 18 104/61 (75) 96 12/15/19 20:00 83 12/15/19 20:00 86 18 104/62 (76) 97 12/15/19 20:00 Nasal Cannula 2.0 12/15/19 19:34 98 Nasal Cannula 4.0 36 12/15/19 19:00 98.4 89 20 106/68 (81) 97 12/15/19 18:00 86 21 119/67 (84) 98 Height (Feet): 5 Height (Inches): 4.00 Weight (Pounds): 174 General Appearance: alert, moderate distress Head: normocephalic, atraumatic Eyes: bilateral eye PERRL, bilateral eye EOMI ENT: uvula midline, moist mucus membranes, other - Right ear: Swollen externally, red, erythematous, with drainage, right posterior ear skin shows pus and drainage with erythema Neck: supple Respiratory: lungs clear, no respiratory distress, no retraction, no accessory muscle use Cardiovascular #1: normal peripheral pulses, no edema, no gallop, no murmur, tachycardia Gastrointestinal: non tender, soft, no guarding, no rebound Neurologic: alert, oriented x3 Skin: no rash, warm/dry Microbiology Date/Time Source Procedure Growth Status 12/15/19 16:34 Nasopharynx SARS-CoV-2 RdRp Gene Assay - Final Complete 12/14/19 00:00 Ear Right Gram Stain - Final Resulted 12/14/19 00:00 Aerobic Culture - Final Staphylococcus Aureus Resulted 12/14/19 00:00 Ear Right Anaerobic Culture - Preliminary Resulted Laboratory Tests Test 12/16/19 04:15 12/16/19 08:40 12/16/19 11:35 White Blood Count 44.0 K/UL (4.8-10.8) *H Red Blood Count 2.71 M/UL (4.70-6.10) L Hemoglobin 8.2 G/DL (14.2-18.0) L Hematocrit 24.6 % (42.0-52.0) L Mean Corpuscular Volume 91 FL (80-99) Mean Corpuscular Hemoglobin 30.2 PG (27.0-31.0) Mean Corpuscular Hemoglobin Concent 33.2 G/DL (32.0-36.0) Red Cell Distribution Width 13.4 % (11.6-14.8) Platelet Count 541 K/UL (150-450) H Mean Platelet Volume 8.8 FL (6.5-10.1) Neutrophils (%) (Auto) % (45.0-75.0) Lymphocytes (%) (Auto) % (20.0-45.0) Monocytes (%) (Auto) % (1.0-10.0) Eosinophils (%) (Auto) % (0.0-3.0) Basophils (%) (Auto) % (0.0-2.0) Differential Total Cells Counted 100 Neutrophils % (Manual) 85 % (45-75) H Lymphocytes % (Manual) 3 % (20-45) L Monocytes % (Manual) 2 % (1-10) Eosinophils % (Manual) 5 % (0-3) H Basophils % (Manual) 0 % (0-2) Myelocytes % 2 % (0-0) H Band Neutrophils 3 % (0-8) Other Cell Type Pathologist review Platelet Estimate Increased H Platelet Morphology Normal Hypochromasia 1+ Erythrocyte Sedimentation Rate 136 MM/HR (0-20) H Reticulocyte Count 2.4 % (0.5-2.0) H Sodium Level 139 MMOL/L (136-145) Potassium Level 3.1 MMOL/L (3.5-5.1) L Chloride Level 106 MMOL/L (98-107) Carbon Dioxide Level 19 MMOL/L (21-32) L Anion Gap 14 mmol/L (5-15) Blood Urea Nitrogen 103 mg/dL (7-18) H Creatinine 4.2 MG/DL (0.55-1.30) H Estimat Glomerular Filtration Rate 15.0 mL/min (>60) Glucose Level 152 MG/DL (74-106) #H Uric Acid 10.2 MG/DL (2.6-7.2) H Calcium Level 7.3 MG/DL (8.5-10.1) L Phosphorus Level 4.6 MG/DL (2.5-4.9) Magnesium Level 2.2 MG/DL (1.8-2.4) Iron Level 21 ug/dL (50-175) L Total Iron Binding Capacity 39 ug/dL (250-450) L Percent Iron Saturation 54 % (15-50) H Unsaturated Iron Binding 18 ug/dL (112-346) L Total Bilirubin 0.3 MG/DL (0.2-1.0) Gamma Glutamyl Transpeptidase 22 U/L (5-85) Aspartate Amino Transf (AST/SGOT) 16 U/L (15-37) Alanine Aminotransferase (ALT/SGPT) 6 U/L (12-78) L Alkaline Phosphatase 127 U/L (46-116) H Lactate Dehydrogenase 303 U/L (81-234) H C-Reactive Protein, Quantitative 26.4 mg/dL (0.00-0.90) H Pro-B-Type Natriuretic Peptide 4063 pg/mL (0-125) H Total Protein 6.0 G/DL (6.4-8.2) L Albumin 1.0 G/DL (3.4-5.0) L Globulin 5.0 g/dL Albumin/Globulin Ratio 0.2 (1.0-2.7) L Carcinoembryonic Antigen Pending Vitamin B12 Level > 2000 PG/ML (193-986) H Folate 19.6 NG/ML (8.6-58.9) POC Whole Blood Glucose Pending Pending Current Medications Medications (Trade) Dose Ordered Sig/Rianna Route PRN Reason Start Time Stop Time Status Last Admin Dose Admin Acetaminophen (Tylenol) 650 mg Q4H PRN ORAL fever 12/14/19 22:00 01/11/20 17:59 Albuterol/ Ipratropium (Albuterol/ Ipratropium) 3 ml Q4H PRN HHN Shortness of Breath 12/14/19 22:00 12/17/19 17:59 Allopurinol (allopurinoL) 300 mg DAILY ORAL 12/15/19 09:00 01/14/20 08:59 12/16/19 08:43 Aripiprazole (Abilify) 10 mg DAILY ORAL 12/15/19 09:00 01/27/20 08:59 12/16/19 08:42 Cefazolin Sodium 1 gm/Dextrose 55 ml @ 110 mls/hr Q12HR IVPB 12/15/19 13:30 12/22/19 13:29 12/16/19 08:42 Dextrose (Dextrose 50%) 25 ml Q30M PRN IV Hypoglycemia 12/14/19 21:30 03/11/20 19:29 Dextrose (Dextrose 50%) 50 ml Q30M PRN IV Hypoglycemia 12/14/19 21:30 03/11/20 19:29 Diltiazem HCl (Cardizem) 60 mg EVERY 6 HOURS ORAL 12/15/19 12:45 01/14/20 12:44 12/16/19 17:32 Divalproex Sodium (Depakote) 500 mg DAILY ORAL 12/15/19 09:00 01/12/20 08:59 12/16/19 08:43 Docusate Sodium (Colace) 100 mg THREE TIMES A DAY ORAL 12/15/19 09:00 01/12/20 17:59 12/16/19 17:32 Heparin Sodium (Porcine) (Heparin 5000 units/ml) 5,000 units EVERY 12 HOURS SUBQ 12/15/19 09:00 01/26/20 20:59 12/15/19 20:44 Insulin Aspart (NovoLOG) BEFORE MEALS AND HS SUBQ 12/15/19 06:30 03/11/20 20:59 12/16/19 17:31 Insulin Aspart (NovoLOG) 4 units NOVOTIAC SUBQ 12/16/19 11:50 03/15/20 11:49 12/16/19 17:31 Insulin Detemir (Levemir) 10 units BID SUBQ 12/15/19 09:00 03/13/20 10:29 12/16/19 17:33 Levofloxacin 150 ml @ 100 mls/hr EVERY OTHER DAY IVPB 12/15/19 22:00 12/22/19 21:59 12/15/19 21:11 Metronidazole (Flagyl) 500 mg Q8HR ORAL 12/14/19 22:00 12/20/19 08:44 12/16/19 13:13 Morphine Sulfate (Morphine Sulfate) 1 mg Q4HR PRN IVP For Pain 12/15/19 14:45 12/22/19 14:44 12/16/19 02:59 Nitroglycerin (Ntg) 0.4 mg Q5M PRN SL Prn Chest Pain 12/14/19 21:15 01/11/20 19:29 Ondansetron HCl (Zofran) 4 mg Q6H PRN IVP Nausea & Vomiting 12/15/19 00:00 01/11/20 17:59 Pantoprazole (Protonix) 40 mg EVERY 12 HOURS ORAL 12/15/19 09:00 01/12/20 14:14 12/16/19 08:43 Polyethylene Glycol (Miralax) 17 gm DAILYPRN PRN ORAL Constipation 12/15/19 18:00 01/11/20 17:59 Sodium Hypochlorite (Dakin's Half Strength) 1 applic DAILY TOPIC 12/15/19 09:00 01/13/20 07:59 12/16/19 08:44 Sodium Chloride 1,000 ml @ 50 mls/hr Q20H IV 12/16/19 11:30 01/15/20 11:29 12/16/19 11:25 Tamsulosin HCl (Flomax) 0.4 mg BID ORAL 12/15/19 09:00 01/11/20 20:59 12/16/19 17:32 Temazepam (Restoril) 15 mg HSPRN PRN ORAL Insomnia 12/15/19 18:00 12/19/19 17:59 Stephanie Carter M.D. Dec 16, 2019 18:07
--- NOTE | 2019-12-16 18:59 | Internal Med Progress Note ---
Subjective Date of Service: Dec 16, 2019 Physician Name Kenton Marshall Attending Physician Holger Benjamin MD Current Medications Medications (Trade) Dose Ordered Sig/Rianna Route PRN Reason Start Time Stop Time Status Last Admin Dose Admin Acetaminophen (Tylenol) 650 mg Q4H PRN ORAL fever 12/14/19 22:00 01/11/20 17:59 Albuterol/ Ipratropium (Albuterol/ Ipratropium) 3 ml Q4H PRN HHN Shortness of Breath 12/14/19 22:00 12/17/19 17:59 Allopurinol (allopurinoL) 300 mg DAILY ORAL 12/15/19 09:00 01/14/20 08:59 12/16/19 08:43 Aripiprazole (Abilify) 10 mg DAILY ORAL 12/15/19 09:00 01/27/20 08:59 12/16/19 08:42 Cefazolin Sodium 1 gm/Dextrose 55 ml @ 110 mls/hr Q12HR IVPB 12/15/19 13:30 12/22/19 13:29 12/16/19 08:42 Dextrose (Dextrose 50%) 25 ml Q30M PRN IV Hypoglycemia 12/14/19 21:30 03/11/20 19:29 Dextrose (Dextrose 50%) 50 ml Q30M PRN IV Hypoglycemia 12/14/19 21:30 03/11/20 19:29 Diltiazem HCl (Cardizem) 60 mg EVERY 6 HOURS ORAL 12/15/19 12:45 01/14/20 12:44 12/16/19 17:32 Divalproex Sodium (Depakote) 500 mg DAILY ORAL 12/15/19 09:00 01/12/20 08:59 12/16/19 08:43 Docusate Sodium (Colace) 100 mg THREE TIMES A DAY ORAL 12/15/19 09:00 01/12/20 17:59 12/16/19 17:32 Heparin Sodium (Porcine) (Heparin 5000 units/ml) 5,000 units EVERY 12 HOURS SUBQ 12/15/19 09:00 01/26/20 20:59 12/15/19 20:44 Insulin Aspart (NovoLOG) BEFORE MEALS AND HS SUBQ 12/15/19 06:30 03/11/20 20:59 12/16/19 17:31 Insulin Aspart (NovoLOG) 4 units NOVOTIAC SUBQ 12/16/19 11:50 03/15/20 11:49 12/16/19 17:31 Insulin Detemir (Levemir) 10 units BID SUBQ 12/15/19 09:00 03/13/20 10:29 12/16/19 17:33 Levofloxacin 150 ml @ 100 mls/hr EVERY OTHER DAY IVPB 12/15/19 22:00 12/22/19 21:59 12/15/19 21:11 Metronidazole (Flagyl) 500 mg Q8HR ORAL 12/14/19 22:00 12/20/19 08:44 12/16/19 13:13 Morphine Sulfate (Morphine Sulfate) 1 mg Q4HR PRN IVP For Pain 12/15/19 14:45 12/22/19 14:44 12/16/19 02:59 Nitroglycerin (Ntg) 0.4 mg Q5M PRN SL Prn Chest Pain 12/14/19 21:15 01/11/20 19:29 Ondansetron HCl (Zofran) 4 mg Q6H PRN IVP Nausea & Vomiting 12/15/19 00:00 01/11/20 17:59 Pantoprazole (Protonix) 40 mg EVERY 12 HOURS ORAL 12/15/19 09:00 01/12/20 14:14 12/16/19 08:43 Polyethylene Glycol (Miralax) 17 gm DAILYPRN PRN ORAL Constipation 12/15/19 18:00 01/11/20 17:59 Sodium Hypochlorite (Dakin's Half Strength) 1 applic DAILY TOPIC 12/15/19 09:00 01/13/20 07:59 12/16/19 08:44 Sodium Chloride 1,000 ml @ 50 mls/hr Q20H IV 12/16/19 11:30 01/15/20 11:29 12/16/19 11:25 Tamsulosin HCl (Flomax) 0.4 mg BID ORAL 12/15/19 09:00 01/11/20 20:59 12/16/19 17:32 Temazepam (Restoril) 15 mg HSPRN PRN ORAL Insomnia 12/15/19 18:00 12/19/19 17:59 Allergies: Coded Allergies: No Known Allergies (Unverified , 08/03/15) ROS Limited/Unobtainable: Yes Subjective 54 YO M admitted with right otitis media and externa. Now sepsis and malignant otitis externa. Cover for Int Med-Dr Benjamin. Transfered to ICU for atrial fibrillation with rapid ventricular rate Objective Last Vital Signs Date Time Temp Pulse Resp B/P (MAP) Pulse Ox O2 Delivery O2 Flow Rate FiO2 12/16/19 18:00 94 17 135/67 (89) 97 12/16/19 16:00 Nasal Cannula 2.0 12/16/19 16:00 98.3 12/16/19 07:00 36 Laboratory Tests Test 12/16/19 04:15 12/16/19 08:40 12/16/19 11:35 White Blood Count 44.0 K/UL (4.8-10.8) *H Red Blood Count 2.71 M/UL (4.70-6.10) L Hemoglobin 8.2 G/DL (14.2-18.0) L Hematocrit 24.6 % (42.0-52.0) L Mean Corpuscular Volume 91 FL (80-99) Mean Corpuscular Hemoglobin 30.2 PG (27.0-31.0) Mean Corpuscular Hemoglobin Concent 33.2 G/DL (32.0-36.0) Red Cell Distribution Width 13.4 % (11.6-14.8) Platelet Count 541 K/UL (150-450) H Mean Platelet Volume 8.8 FL (6.5-10.1) Neutrophils (%) (Auto) % (45.0-75.0) Lymphocytes (%) (Auto) % (20.0-45.0) Monocytes (%) (Auto) % (1.0-10.0) Eosinophils (%) (Auto) % (0.0-3.0) Basophils (%) (Auto) % (0.0-2.0) Differential Total Cells Counted 100 Neutrophils % (Manual) 85 % (45-75) H Lymphocytes % (Manual) 3 % (20-45) L Monocytes % (Manual) 2 % (1-10) Eosinophils % (Manual) 5 % (0-3) H Basophils % (Manual) 0 % (0-2) Myelocytes % 2 % (0-0) H Band Neutrophils 3 % (0-8) Other Cell Type Pathologist review Platelet Estimate Increased H Platelet Morphology Normal Hypochromasia 1+ Erythrocyte Sedimentation Rate 136 MM/HR (0-20) H Reticulocyte Count 2.4 % (0.5-2.0) H Sodium Level 139 MMOL/L (136-145) Potassium Level 3.1 MMOL/L (3.5-5.1) L Chloride Level 106 MMOL/L (98-107) Carbon Dioxide Level 19 MMOL/L (21-32) L Anion Gap 14 mmol/L (5-15) Blood Urea Nitrogen 103 mg/dL (7-18) H Creatinine 4.2 MG/DL (0.55-1.30) H Estimat Glomerular Filtration Rate 15.0 mL/min (>60) Glucose Level 152 MG/DL (74-106) #H Uric Acid 10.2 MG/DL (2.6-7.2) H Calcium Level 7.3 MG/DL (8.5-10.1) L Phosphorus Level 4.6 MG/DL (2.5-4.9) Magnesium Level 2.2 MG/DL (1.8-2.4) Iron Level 21 ug/dL (50-175) L Total Iron Binding Capacity 39 ug/dL (250-450) L Percent Iron Saturation 54 % (15-50) H Unsaturated Iron Binding 18 ug/dL (112-346) L Total Bilirubin 0.3 MG/DL (0.2-1.0) Gamma Glutamyl Transpeptidase 22 U/L (5-85) Aspartate Amino Transf (AST/SGOT) 16 U/L (15-37) Alanine Aminotransferase (ALT/SGPT) 6 U/L (12-78) L Alkaline Phosphatase 127 U/L (46-116) H Lactate Dehydrogenase 303 U/L (81-234) H C-Reactive Protein, Quantitative 26.4 mg/dL (0.00-0.90) H Pro-B-Type Natriuretic Peptide 4063 pg/mL (0-125) H Total Protein 6.0 G/DL (6.4-8.2) L Albumin 1.0 G/DL (3.4-5.0) L Globulin 5.0 g/dL Albumin/Globulin Ratio 0.2 (1.0-2.7) L Carcinoembryonic Antigen Pending Vitamin B12 Level > 2000 PG/ML (193-986) H Folate 19.6 NG/ML (8.6-58.9) POC Whole Blood Glucose Pending Pending Microbiology Date/Time Source Procedure Growth Status 12/15/19 16:34 Nasopharynx SARS-CoV-2 RdRp Gene Assay - Final Complete 12/14/19 00:00 Ear Right Gram Stain - Final Resulted 12/14/19 00:00 Aerobic Culture - Final Staphylococcus Aureus Resulted 12/14/19 00:00 Ear Right Anaerobic Culture - Preliminary Resulted Intake and Output 12/15/19 12/16/19 19:00 07:00 Intake Total 977.5 ml 1625 ml Output Total 1300 ml 660 ml Balance -322.5 ml 965 ml Intake Oral 220 ml IV Total 977.5 ml 1405 ml Output Urine Total 1300 ml 660 ml # Bowel Movements 2 Objective PHYSICAL EXAMINATION: GENERAL: The patient is awake, responsive, no acute distress. HEENT: Pupils are equally reactive to light. Extraocular movements are intact. Right posterior ocular area has discharge, inflamed, tender to touch, erythema. NECK: Supple. No JVD. LUNGS: Good air entry. No wheezes or rales. Decreased air entry in the bases. HEART: S1, S2. Distant heart sounds. No murmur or gallops. ABDOMEN: Soft, nondistended, nontender. Morbidly obese. EXTREMITIES: No cyanosis, clubbing, or edema NEUROLOGIC: Cranial nerves II through XII grossly normal. Motor is 5/5 in all extremities. Gait was not assessed due to patient's status. RECTAL/GENITOURINARY: Refused and deferred. PSYCHIATRIC: Mood and affect are intact. Assessment/Plan Assessment/Plan ASSESSMENT: 1. Sepsis=Staph Aureus (MSSA) 2. Malignant right otitis externa/mastoiditis 2. Diabetes, type 2, uncontrolled. 3. Morbid obesity. 4. BPH. 5. Acute kidney injury, chronic insufficiency. 6. Dehydration. 7. atrial fibrillation with rapid ventricular rate PLAN: 1. Admit the patient to monitored unit. 2. antibiotics=cefazolin and levaquin. S/P vancomycin, cefepime, and amikacin ID=Dr Carter 3. Dr. Borja = Pulmonary Critical Care 4. Dr. Ma = Nephrology 5. ENT consultation. 6. Code status is Full Code. 7. DVT prophylaxis = heparin subcutaneously. 8. Cardiology=Dr Wise 9. Transfer to [facility] when bed available-see discharge planning note 10. Cont cardizem per cardiology Kenton Marshall MD Dec 16, 2019 18:59
--- NOTE | 2019-12-16 19:20 | NUR ---
HAND-OFF: Report given to BERNARDINO Faye. The patient is stable at this time. Endorsed plan of care.
--- NOTE | 2019-12-16 19:30 | NUR ---
NURSE NOTES: Received pt and report from BERNARDINO Dunbar. Patient is AAO x4, slow mentally, in no acute distress, SR 90s on the monitor, afebrile. On O2 4L/min via NC and O2 sat 98% on the monitor. Morgan intact and draining with cloudy yellow color urine. Left hand 22G intact , Left AC wrist 20G IV intact and running with NS 50ml/hr. Right neck wound with drainage noted. Kept dry, clean, comfortable and HOB>30. Call light within reach. Bed in low and locked position. Pt will be transferred to [facility] on 12/17/2019. Will continue plan of care.
--- NOTE | 2019-12-16 22:00 | NUR ---
NURSE NOTES: Pt's resting bed , watching TV, in no acute distress. VS stable. Denies any pain/ concerns at this time. Will continue to monitor.
[2019-12-17] VITALS (11 sets, daily range): BP systolic 109–127; BP diastolic 62–84
--- NOTE | 2019-12-17 | NUR ---
NURSE NOTES: Pt's resting in bed, in no acute distress. Afebrile. Will continue to monitor.
[2019-12-17] MEDS: dilTIAZem HCl 60mg tab ORAL SCH ×2 (00:10→05:47)
--- NOTE | 2019-12-17 02:00 | NUR ---
NURSE NOTES: Pt's observed in bed, eyes closed, sleeping. VS stable. SR on certified juvenile probation officer. Afebrile. Will continue to monitor.
--- NOTE | 2019-12-17 04:00 | NUR ---
NURSE NOTES: Called [facility] to set up the transportation to [facility]. Called to [place], [facility] will come at 8AM, to go thru [facility] at [facility] and call prior to dispatch at [phone]. Pt's resting in bed, in no acute distress. VS stable. Will continue to monitor.
[2019-12-17 05:06] LABS: HEMATOCRIT 25.3 % (42.0-52.0); HEMOGLOBIN 8.4 G/DL (14.2-18.0); MEAN CORPUSCULAR VOLUME 91 FL (80-99); PLATELET COUNT 586 K/UL (150-450); RED BLOOD COUNT 2.79 M/UL (4.70-6.10); RED CELL DISTRIBUTION WIDTH 13.7 % (11.6-14.8)
[2019-12-17 05:31] LABS: WHITE BLOOD COUNT 35.9 K/UL (4.8-10.8)
[2019-12-17 05:39] LABS: ALANINE AMINOTRANSFERASE < 6 U/L (12-78); ALBUMIN/GLOBULIN RATIO 0.2 (1.0-2.7); ALKALINE PHOSPHATASE 134 U/L (46-116); ANION GAP 14 mmol/L (5-15); ASPARTATE AMINO TRANSFERASE 43 U/L (15-37); BILIRUBIN,TOTAL 0.4 MG/DL (0.2-1.0); BLOOD UREA NITROGEN 86 mg/dL (7-18); CALCIUM 7.8 MG/DL (8.5-10.1); CARBON DIOXIDE 18 MMOL/L (21-32); CHLORIDE 109 MMOL/L (98-107); CREATININE 3.4 MG/DL (0.55-1.30); PHOSPHORUS 4.5 MG/DL (2.5-4.9); POTASSIUM 3.9 MMOL/L (3.5-5.1); SODIUM 141 MMOL/L (136-145)
[2019-12-17] MEDS: metroNIDAZOLE 500mg tab ORAL SCH (05:47)
[2019-12-17] MEDS: NovoLOG Insulin Flexpen SUBQ SCH ×2 (05:48→05:50)
--- NOTE | 2019-12-17 06:00 | NUR ---
NURSE NOTES: Pt's resting in bed, in no acute distress. Afebrile. VS stable. Will continue to monitor.
--- NOTE | 2019-12-17 07:05 | General Progress Note ---
Assessment/Plan Problem List: (1) Hyperglycemic hyperosmolar nonketotic coma ICD Codes: E11.01 - Type 2 diabetes mellitus with hyperosmolarity with coma SNOMED: 41425208 (2) Malignant otitis externa of right ear ICD Codes: H60.21 - Malignant otitis externa, right ear SNOMED: 1272894561790081, [id number] Qualifiers: Qualified Codes: H60.21 - Malignant otitis externa, right ear (3) Cellulitis ICD Codes: L03.90 - Cellulitis, unspecified SNOMED: 377457581 Qualifiers: Qualified Codes: L03.221 - Cellulitis of neck Assessment/Plan: continue Levemir 10 units bid continue Novolog 4 units ac tid continue Novolog sliding scale ac / hs Subjective Allergies: Coded Allergies: No Known Allergies (Unverified , 08/03/15) Subjective plan for transfer to [facility] noted glucose values improved Item Value Date Time Bedside Blood Glucose 205 mg/dl H 12/17/19 0630 Bedside Blood Glucose 290 mg/dl H 12/16/19 2137 Bedside Blood Glucose 187 mg/dl H 12/16/19 1733 Bedside Blood Glucose 178 mg/dl H 12/16/19 1152 Bedside Blood Glucose 145 mg/dl H 12/16/19 0900 Bedside Blood Glucose 135 mg/dl H 12/16/19 0630 Objective Last 24 Hour Vital Signs Date Time Temp Pulse Resp B/P (MAP) Pulse Ox O2 Delivery O2 Flow Rate FiO2 12/17/19 06:00 98.4 94 17 109/63 (78) 100 12/17/19 05:47 90 136/71 12/17/19 05:00 80 17 109/64 (79) 100 12/17/19 04:00 88 12/17/19 04:00 Nasal Cannula 2.0 12/17/19 04:00 95 17 110/64 (79) 100 12/17/19 03:00 85 17 123/70 (87) 100 12/17/19 02:00 84 18 119/69 (86) 100 12/17/19 01:00 86 17 110/67 (81) 100 12/17/19 00:10 93 126/70 12/17/19 00:00 90 12/17/19 00:00 Nasal Cannula 2.0 12/17/19 00:00 98.4 85 15 112/84 (93) 100 12/16/19 23:00 85 15 125/66 (85) 100 12/16/19 22:00 94 19 139/70 (93) 99 12/16/19 21:00 94 21 131/61 (84) 99 12/16/19 20:00 Nasal Cannula 2.0 12/16/19 20:00 91 12/16/19 20:00 85 17 125/60 (81) 99 12/16/19 19:00 96 19 108/55 (72) 99 12/16/19 19:00 99 Nasal Cannula 4.0 36 12/16/19 18:00 94 17 135/67 (89) 97 12/16/19 17:32 88 132/63 12/16/19 17:00 88 17 132/63 (86) 99 12/16/19 16:00 Nasal Cannula 2.0 12/16/19 16:00 88 12/16/19 16:00 98.3 84 19 113/59 (77) 98 12/16/19 15:00 109 22 143/63 (89) 98 12/16/19 14:00 81 15 115/60 (78) 96 12/16/19 13:00 87 20 126/64 (84) 97 12/16/19 12:00 98.1 85 17 128/63 (84) 97 12/16/19 12:00 91 12/16/19 12:00 Nasal Cannula 2.0 12/16/19 11:25 86 121/71 12/16/19 11:00 89 18 121/61 (81) 98 12/16/19 10:00 89 19 127/69 (88) 98 12/16/19 09:00 89 17 124/74 (91) 98 12/16/19 08:00 85 12/16/19 08:00 Nasal Cannula 2.0 12/16/19 08:00 98.5 84 17 131/65 (87) 96 Intake and Output 12/16/19 12/17/19 19:00 07:00 Intake Total 250 ml 655 ml Output Total 380 ml 330 ml Balance -130 ml 325 ml Intake Oral 200 ml IV Total 50 ml 655 ml Output Urine Total 380 ml 330 ml # Bowel Movements 1 1 Laboratory Tests 12/16/19 08:40: POC Whole Blood Glucose [Pending] 12/16/19 11:35: POC Whole Blood Glucose [Pending] 12/16/19 16:20: POC Whole Blood Glucose [Pending] 12/16/19 21:34: POC Whole Blood Glucose [Pending] 12/17/19 03:06: White Blood Count 35.9*H, Red Blood Count 2.79L, Hemoglobin 8.4L, Hematocrit 25.3L, Mean Corpuscular Volume 91, Mean Corpuscular Hemoglobin 30.3, Mean Corpuscular Hemoglobin Concent 33.4, Red Cell Distribution Width 13.7, Platelet Count 586H, Mean Platelet Volume 8.8, Neutrophils (%) (Auto) , Lymphocytes (%) ( Auto) , Monocytes (%) (Auto) , Eosinophils (%) (Auto) , Basophils (%) (Auto) , Neutrophils % (Manual) [Pending], Lymphocytes % (Manual) [Pending], Platelet Estimate [Pending], Platelet Morphology [Pending], Erythrocyte Sedimentation Rate [Pending], Prothrombin Time 20.5H, Prothromb Time International Ratio 2.0H , Activated Partial Thromboplast Time 38H, Sodium Level 141, Potassium Level 3.9 , Chloride Level 109H, Carbon Dioxide Level 18L, Anion Gap 14, Blood Urea Nitrogen 86H, Creatinine 3.4H, Estimat Glomerular Filtration Rate 19.1, Glucose Level 247H, Uric Acid 8.7H, Calcium Level 7.8L, Phosphorus Level 4.5, Magnesium Level 2.1, Total Bilirubin 0.4, Aspartate Amino Transf (AST/SGOT) 43H, Alanine Aminotransferase (ALT/SGPT) < 6L, Alkaline Phosphatase 134H, Troponin I 0.007, C -Reactive Protein, Quantitative [Pending], Total Protein 6.4, Albumin 1.0L, Globulin 5.4, Albumin/Globulin Ratio 0.2L, Thyroid Stimulating Hormone (TSH) 0.458, Free Thyroxine 1.13 12/17/19 05:45: POC Whole Blood Glucose [Pending] Height (Feet): 5 Height (Inches): 4.00 Weight (Pounds): 174 General Appearance: no apparent distress Cardiovascular: normal rate Respiratory/Chest: lungs clear Abdomen: normal bowel sounds Objective Current Medications Medications (Trade) Dose Ordered Sig/Rianna Route PRN Reason Start Time Stop Time Status Last Admin Dose Admin Acetaminophen (Tylenol) 650 mg Q4H PRN ORAL fever 12/14/19 22:00 01/11/20 17:59 Albuterol/ Ipratropium (Albuterol/ Ipratropium) 3 ml Q4H PRN HHN Shortness of Breath 12/14/19 22:00 12/17/19 17:59 Allopurinol (allopurinoL) 300 mg DAILY ORAL 12/15/19 09:00 01/14/20 08:59 12/16/19 08:43 Aripiprazole (Abilify) 10 mg DAILY ORAL 12/15/19 09:00 01/27/20 08:59 12/16/19 08:42 Cefazolin Sodium 1 gm/Dextrose 55 ml @ 110 mls/hr Q12HR IVPB 12/15/19 13:30 12/22/19 13:29 12/16/19 21:35 Dextrose (Dextrose 50%) 25 ml Q30M PRN IV Hypoglycemia 12/14/19 21:30 03/11/20 19:29 Dextrose (Dextrose 50%) 50 ml Q30M PRN IV Hypoglycemia 12/14/19 21:30 03/11/20 19:29 Diltiazem HCl (Cardizem) 60 mg EVERY 6 HOURS ORAL 12/15/19 12:45 01/14/20 12:44 12/17/19 05:47 Divalproex Sodium (Depakote) 500 mg DAILY ORAL 12/15/19 09:00 01/12/20 08:59 12/16/19 08:43 Docusate Sodium (Colace) 100 mg THREE TIMES A DAY ORAL 12/15/19 09:00 01/12/20 17:59 12/16/19 17:32 Heparin Sodium (Porcine) (Heparin 5000 units/ml) 5,000 units EVERY 12 HOURS SUBQ 12/15/19 09:00 01/26/20 20:59 12/16/19 21:38 Insulin Aspart (NovoLOG) BEFORE MEALS AND HS SUBQ 12/15/19 06:30 03/11/20 20:59 12/17/19 05:48 Insulin Aspart (NovoLOG) 4 units NOVOTIAC SUBQ 12/16/19 11:50 03/15/20 11:49 12/16/19 17:31 Insulin Detemir (Levemir) 10 units BID SUBQ 12/15/19 09:00 03/13/20 10:29 12/16/19 17:33 Levofloxacin 150 ml @ 100 mls/hr EVERY OTHER DAY IVPB 12/15/19 22:00 12/22/19 21:59 12/15/19 21:11 Metronidazole (Flagyl) 500 mg Q8HR ORAL 12/14/19 22:00 12/20/19 08:44 12/17/19 05:47 Morphine Sulfate (Morphine Sulfate) 1 mg Q4HR PRN IVP For Pain 12/15/19 14:45 12/22/19 14:44 12/16/19 02:59 Nitroglycerin (Ntg) 0.4 mg Q5M PRN SL Prn Chest Pain 12/14/19 21:15 01/11/20 19:29 Ondansetron HCl (Zofran) 4 mg Q6H PRN IVP Nausea & Vomiting 12/15/19 00:00 01/11/20 17:59 Pantoprazole (Protonix) 40 mg EVERY 12 HOURS ORAL 12/15/19 09:00 01/12/20 14:14 12/16/19 21:35 Polyethylene Glycol (Miralax) 17 gm DAILYPRN PRN ORAL Constipation 12/15/19 18:00 01/11/20 17:59 Sodium Hypochlorite (Dakin's Half Strength) 1 applic DAILY TOPIC 12/15/19 09:00 01/13/20 07:59 12/16/19 08:44 Sodium Chloride 1,000 ml @ 50 mls/hr Q20H IV 12/16/19 11:30 01/15/20 11:29 12/17/19 06:52 Tamsulosin HCl (Flomax) 0.4 mg BID ORAL 12/15/19 09:00 01/11/20 20:59 12/16/19 17:32 Temazepam (Restoril) 15 mg HSPRN PRN ORAL Insomnia 12/15/19 18:00 12/19/19 17:59 Jamie Ho MD Dec 17, 2019 07:05
--- NOTE | 2019-12-17 07:31 | NUR ---
HAND-OFF: Report given to BERNARDINO Velez.
--- NOTE | 2019-12-17 07:40 | NUR ---
NURSE NOTES: RECEIVED REPORT FROM Geoff MACKEY PT IN BED, AWAKE. MOANING, C/O PAIN 07/29, WILL WAIT POST MEAL FOR PAIN MEDICATION. PROVIDED PT WITH BREAKFAST TRAY. BP STABLE. DRESSING TO RIGHT SIDE OF HEAD PEELING OFF, WITH DRAINAGE NOTED ON DRESSING, WILL CHANGE ONCE MEAL COMPLETE. PT REPOSITIONS SELF IN BED. A/OX X3. 2L NC SATING 100%. NO RESPIRATORY DISTRESS NOTED. NO APPETITE CHANGES. CALL LIGHT IN REACH, EDUCATED ON NOT GETTING OUT OF BED WITH OUT CALLING FOR ASSISTANCE. BED ALARM ON. SIDE RAILS X3. WILL CONTINUE TO MONITOR.
--- NOTE | 2019-12-17 08:15 | NUR ---
NURSE NOTES: PT COMPLETE MEAL, SMALL AMOUNTS OF CLEARING THROAT. COMPLETE 50% CONSUMED. PT REQUESTED BED WHITE. CLEANED UP, ONE LARGE BOWEL MOVEMENT ON BEDPAN. LOOSE, GREEN IN COLOR. PERIANAL REDNESS NOTED. MOISTURE BARRIER APPLIED.
--- NOTE | 2019-12-17 08:35 | NUR ---
NURSE NOTES: USING [employer]AK[employer] SOLUTION, CLEANED RT SIDE NECK WOUND, BLEEDING NOTED. REDNESS. DRAINAGE PURULENT. APPLIED 4X4 GAUZE AND ABDOMINAL PAD. PT REPOSITIONED, LEGS ELEVATED. PT IN NO ACUTE DISTRESS.
[2019-12-17] MEDS: ARIPiprazole 10mg tab ORAL SCH (08:43)
[2019-12-17] MEDS: Levemir Flexpen SUBQ SCH (08:49)
--- NOTE | 2019-12-17 08:55 | NUR ---
NURSE NOTES: [facility] HERE FOR PT. PT BG 234. LEVEMIR 10 UNITS ADMINISTERED SUBCUT AND ABILIFY PO. PT REQUESTED ONLY PAIN MEDICATION. MORPHINE 1MG IVP BEFORE LEAVING. PT REMOVED FROM MONITOR. VSS. ARM BAND OFF. SANCHEZ AND IV ACCESS TO REMAIN.
[2019-12-17] MEDS ORDERED: Tubing IV Secondary IV ONE (08:59)
[2019-12-17] MEDS: Heparin 5000 units/ml inj SUBQ SCH (09:00)
[2019-12-17] MEDS: Depakote 500mg tab ORAL SCH (09:00)
[2019-12-17] MEDS: Docusate 100mg cap ORAL SCH (09:00)
[2019-12-17] MEDS: ceFAZolin sod 1 GM in D5W 55 ML IVPB SCH (09:00)
[2019-12-17] MEDS: Tamsulosin 0.4mg cap ORAL SCH (09:00)
--- NOTE | 2019-12-17 09:08 | NUR ---
NURSE NOTES: REPORT AND PT PACKET GIVEN TO KESHA CRISOSTOMO USING SBAR. ALREADY AWARE OF LOCATION AND NUMBER TO CALL TO GIVE THERE REPORT. PT BELONGINGS GOING WITH PT. CALLED CALLED [facility], GAVE REPORT TO BLANK Tellez PT GOING TO [facility], RM [phone]. ALL QUESTIONS ANSWERED.
[2019-12-17] MEDS: Dakin's 0.25% (Half Strength) 16oz TOPIC SCH (09:19)
[2019-12-17] MEDS: Morphine Sulfate 2mg/ml Inj(IV/IM USE ONLY) IVP PRN (09:20)
--- NOTE | 2019-12-17 10:00 | NUR ---
NURSE NOTES: CALLED NEXT OF KIN TO INFORM THAT FAMILY MEMBER TRANSFERRED TO [facility]. LEFT MESSAGE FOR MARY GILLIAM.
--- NOTE | 2019-12-19 12:45 | Discharge Summary ---
Discharge Summary Discharge Summary _ DATE OF ADMISSION: 12/12/2019 DATE OF DISCHARGE: [] 12/17/2019 DISCHARGED BY: Dr. Benjamin 54 years old male with past medical history of diabetes mellitus type 2, REASON FOR ADMISSION: [] BPH, GERD, psychiatric disorder, [facility] for right ear infection associated with a fever and chills. Patient denied any hearing difficulty. Patient denied any double vision. Laboratory work-up revealed significant leukocytosis WBC 55.2, hemoglobin 11.3 hematocrit 33.8 platelet count 590. Glucose 698. BUN 100, creatinine 2.9. Anion gap 15. CO2 22. Sodium 129, potassium 4.6, chloride 93. Phosphorus 5, magnesium 2.9. Lactic acid 1.9. Stable LFT. Troponin negative. proBNP 1123. Lipase 160. Urinalysis revealed pyuria and only few bacteria +3 protein +2 ketones +[address] scan of the neck revealed CT of the head revealed no acute intracranial abnormality severe Chest x-ray demonstrated no acute cardiopulmonary disease. Emergency department patient pancultured and CT of the internal auditory canal revealed In emergency department culture started on empiric antibiotics received a liter of fluid and admitted for further management CONSULTANTS: gear milling machine set up operator Dr. Orantes neurologist pulmonary Dr. Wagner ID specialist GI specialist Dr. Carter Novelty Candy Maker Dr. Shannon valve machine operator Dr. Ma surveillance investigator/oncologist surgery Dr. Ralph psychiatrist HOSPITAL COURSE: Patient admitted to monitored floor and started on broad-spectrum antibiotic as per ID recommendation. DVT prophylaxis provided. Pain management was addressed. Ear culture revealed Staph aureus . Blood culture revealed Staph aureus. Urine culture was negative. COVID-19 on was not detected. Rapid COVID 19 12/13 was negative as well. Repeated blood culture on were preliminary negative. Patient noted to have atrial fibrillation with rapid ventricular response . Patient was transferred to ICU and started on Cardizem drip . Heart rate was controlled . Patient converted to sinus rhythm. Banking Center Manager recommended to hold off on full anticoagulation in view of risk of bleeding at the site of external otitis and inflammation. Per gear milling machine set up operator , if patient will have recurrence of atrial fibrillation , then he will be started on amiodarone. Blood pressure was managed with Cardizem and remained stable. Blood sugar was managed as per private banker recommendations. Patient was on long-acting Levemir ,short acting NovoLog before each meal and sliding scale of insulin as needed. Diabetic diet provided. Hypoglycemia protocol was on board. Anti-glycemic regimen was further optimized based on blood sugar levels. Noted abnormal thyroid function with low TSH and low fee T3, which was likely due to state of illness. 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 Patient was not a candidate for thyroid hormone replacement. Novelty Candy Maker recommended to repeat thyroid function test as outpatient in 3 weeks. TSH actually was repeated in 3 days and was within normal limits. Renewable Energy Consultant closely followed. Renal ultrasound demonstrated no evidence of hydronephrosis. Bladder wall thickening. Bilateral kidney with normal echogenicity. Renal parameters and electrolytes were closely monitored. Creatinine from 2.9 went up to 3.4 . Electrolytes corrected as needed. Nephrotoxic's were avoided. According to valve machine operator patient had acute kidney injury probably prerenal , due to dehydration and severe hyperglycemia . Urine studies were done. Patient was hydrated . Albumin boluses provided as needed. Patient started on allopurinol. Surgeon followed and recommended transfer to higher level of care . Patient was accepted to [facility]. Patient was stable for transfer FINAL DIAGNOSES: Severe sepsis due to necrotizing infection right ear Staph aureus bacteremia Severe right otitis externa, probably malignant, otitis media and mastoiditis with necrotizing infection Diabetes mellitus with hyperglycemia. diabetes melitis out of control RENU secondary to dehydration on chronic renal insufficiency A. fib with RVR Anemia Electrolyte imbalances Psychosis BPH Acute kidney injury Dehydration Diabetes [id number] Abnormal thyroid function test DISCHARGE MEDICATIONS: List of medication was sent to accepting facility DISCHARGE INSTRUCTIONS: Patient was transferred to [facility] for further management I have been assigned to dictate discharge summary for this account. I was not involved in the patient's management. Paula Tubbs NP Dec 19, 2019 12:45
== END 2019-12-17 09:00 | DRG 871 ==
LOC: EDBD 11:25 → EMR 11:45 → 2W 11:55 → EDBEDREQSVC 16:37 → EDBEDREQ 16:37 → 2E 12-13 17:27 → ICU 12-14 21:06
DX: A41.01 Sepsis due to Methicillin susceptible Staphylococcus aureus (principal); E11.01 Type 2 diabetes mellitus with hyperosmolarity with coma; N17.9 Acute kidney failure, unspecified; L03.90 Cellulitis, unspecified; E87.1 Hypo-osmolality and hyponatremia; H60.21 Malignant otitis externa, right ear; L03.221 Cellulitis of neck; H70.91 Unspecified mastoiditis, right ear; H66.91 Otitis media, unspecified, right ear; F29 Unspecified psychosis not due to a substance or known physiological condition; R65.20 Severe sepsis without septic shock; E11.65 Type 2 diabetes mellitus with hyperglycemia; E86.0 Dehydration; N40.0 Benign prostatic hyperplasia without lower urinary tract symptoms; E11.22 Type 2 diabetes mellitus with diabetic chronic kidney disease; N18.9 Chronic kidney disease, unspecified; D64.9 Anemia, unspecified; Z79.4 Long term (current) use of insulin; E66.01 Morbid (severe) obesity due to excess calories
CPT/HCPCS: 36415; 70450; 70480; 70490; 71045; 76770; 80048; 80053; 80061; 80164; 80202; 81001; 81003; 82043; 82378; 82550; 82553; 82607; 82728; 82746; 82962; 82977; 83036; 83540; 83550; 83605; 83615; 83690; 83735; 83880; 83935; 84100; 84300; 84439; 84443; 84481; 84484; 84550; 85007; 85025; 85044; 85060; 85610; 85651; 85730; 86140; 86703; 87040; 87070; 87075; 87086; 87181; 87205; 89050; 93005; 93306; 96361; 96365; 96368; 96375; 96376; 99291; J1815; J7030; S5561; U0002